=== PATIENT | female | born 1955 | race Caucasian/White ===

== ENCOUNTER → 2021-10-14 06:35 | Outpatient (CLI) | payer MEDICARE, SELFPAY ==
--- NOTE | 2021-10-14 06:47 | ECHOD_ITS ---
Reason For Study: Afib/Flutter Procedure This was a 2D Doppler, Color Flow transthoracic echocardiogram. The study was technically difficult. Exam performed in department. Left Ventricle Normal LV size. Mild concentric left ventricular hypertrophy. Left ventricular systolic function is normal. The estimated ejection fraction is 65 %. Diastolic function is indeterminate. No regional wall motion abnormalities noted. Right Ventricle Normal RV size. Normal systolic function. Atria Normal left atrium. Normal right atrium. Lipomatous hypertrophy of the atrial septum. No doppler evidence for ASD. Mitral Valve There is mild mitral annular calcification. Normal mitral valve. Trivial mitral valve insufficiency. Tricuspid Valve Normal tricuspid valve. Trivial tricuspid valve insufficiency. Unable to estimate RV systolic pressure/pulmonary artery pressure due to technically difficult study. Aortic Valve Trisinus/trileaflet aortic valve. Mild diffuse aortic valve thickening. Mild focal aortic valve calcification. Mild aortic stenosis. Mild (1+) aortic valve insufficiency. Pulmonic Valve The pulmonic valve is not well visualized. Great Vessels The aortic root is not well visualized. Pericardium/Pleural No pericardial effusion. MMode/2D Measurements & Calculations LVIDd: 4.6 cm IVSd: 1.4 cm LVOT diam: 2.0 cm LVIDs: 3.0 cm LVPWd: 1.3 cm LVOT area: 3.2 cm2 RVDd: 2.9 cm FS: 36.1 % LA dimension: 3.1 cm LAV(MOD-bp): 37.6 ml LA A4 area: 13.2 cm2 LAV(MOD-bp) Indexed: 22.5 ml/m2 LAV(MOD-sp2): 42.3 ml LAV(MOD-sp4): 31.9 ml RA A4 area: 11.3 cm2 Time Measurements MV dec time: 0.38 sec Doppler Measurements & Calculations MV E max gera: 58.9 cm/sec Lat Peak E' Gera: 3.5 cm/sec Med Peak E' Gera: 4.1 cm/sec MV A max gera: 99.3 cm/sec E/E' lat: 16.6 E/E' med: 14.3 MV E/A: 0.59 MV V2 max: 100.8 cm/sec MV P1/2t max gera: 63.6 cm/sec Ao V2 max: 250.3 cm/sec MV max P.1 mmHg MV P1/2t: 143.2 msec Ao max P.1 mmHg MV V2 mean: 49.0 cm/sec MV dec slope: 130.0 cm/sec2 Ao V2 mean: 170.3 cm/sec MV mean P.2 mmHg Ao mean P.0 mmHg MV V2 VTI: 29.6 cm MVA(P1/2t): 1.5 cm2 Ao V2 VTI: 53.9 cm MVA(VTI): 2.6 cm2 POLO(I,D): 1.4 cm2 POLO(V,D): 1.4 cm2 AI max gera: 441.9 cm/sec LV V1 max: 114.0 cm/sec SV(LVOT): 77.3 ml AI max P.2 mmHg LV V1 max P.2 mmHg LV V1 mean P.4 mmHg AI dec slope: 189.9 cm/sec2 LV V1 mean: 70.6 cm/sec AI P1/2t: 681.4 msec LV V1 VTI: 24.4 cm PA V2 max: 69.9 cm/sec ECHO/Echo Complete Interpretation Summary The study was technically difficult. Left ventricular systolic function is normal. The estimated ejection fraction is 65 %. Mild concentric left ventricular hypertrophy. Lipomatous hypertrophy of the atrial septum. There is mild mitral annular calcification. Trivial mitral valve insufficiency. Trivial tricuspid valve insufficiency. Mild aortic stenosis. Mild (1+) aortic valve insufficiency. Unable to estimate RV systolic pressure/pulmonary artery pressure due to techni elin difficult study. Diastolic function is indeterminate. Ordering Physician: Michael Tinoco Referring Physician: Mandie Aldana Performed By: Pramod Meza RCS
--- NOTE | 2021-10-14 09:36 | STRESSREP ---
Stress Test Report Date: 10-14-2021 Procedure: Exercise tolerance test/imaging study Indications: Atrial fibrillation; PACs; PVCs; aortic valve stenosis Consent: Per the patient Procedure: The patient exercised on a See protocol for 4 minutes and 30 seconds completing Stage I and 1 minute and 30 seconds of Stage II achieving a peak heart rate of 144 bpm (94% predicted maximal heart rate) with a peak blood pressure 220/104 mmHg and a peak MET capacity of 7 METs. The baseline ECG demonstrated sinus rhythm. The peak exercise ECG demonstrated somatic/motion artifact with no obvious ECG changes. There was an occasional PVC in recovery. Blood pressure response: Resting hypertension-exaggerated response. The functional capacity was considered decreased. There was no complaint of chest discomfort during exercise or recovery. The examination was discontinued secondary to dyspnea and leg discomfort. Impression: 1. Technically adequate (percent predicted maximal heart rate greater than 85%) exercise tolerance test 2. Peak exercise ECG with somatic/motion artifact with no obvious ECG changes 3. There was an occasional PVC during recovery 4. Nuclear images pending Myocardial perfusion imaging study: Technique: The patient was injected with 11.5 mCi of technetium 99m Cardiolite and subsequently rest SPECT Cardiolite nuclear imaging was obtained in the horizontal long, vertical long, and short axis views. The patient exercised on a See protocol for 4 minutes and 30 seconds completing Stage I and 1 minute and 30 seconds of Stage II achieving a peak heart rate of 144 bpm (94% predicted maximal heart rate) with a peak blood pressure 220/104 mmHg and a peak MET capacity of 7 METs. The patient was injected with 33.6 mCi of technetium 99m Cardiolite and subsequently stress SPECT Cardiolite nuclear imaging was obtained in the horizontal long, vertical long, and short axis views. A gated Cardiolite study at peak stress was obtained. Interpretation: Rest and stress SPECT Cardiolite nuclear imaging status post realignment, normalization, and attenuation correction, demonstrates the appearance of relative uniform tracer uptake and myocardial perfusion appearing within normal limits. There is end systolic thickening and brightening. The gated Cardiolite study demonstrates myocardial thickening and inward wall motion. The reported LVEF is 61%. Impression: 1. Rest and stress SPECT Cardiolite nuclear imaging demonstrate relative uniform tracer uptake and myocardial perfusion appearing within normal limits. 2. The gated Cardiolite study reports an LVEF of 61%. This note was generated with [employer] software. It may contain incorrect words, spelling, and punctuation that were not noted in checking the note before signing.
== END ==
PROVIDERS: PCP Physician Assistant; Referring Provider Internal Medicine Cardiovascular Disease; Visit Provider Internal Medicine Cardiovascular Disease
DX: R01.1 Cardiac murmur, unspecified (principal); E78.2 Mixed hyperlipidemia; I10 Essential (primary) hypertension; I35.2 Nonrheumatic aortic (valve) stenosis with insufficiency; I48.91 Unspecified atrial fibrillation; I49.1 Atrial premature depolarization; I49.3 Ventricular premature depolarization; R06.09 Other forms of dyspnea
CPT/HCPCS: 78452; 93017; 93306; A9500; A4216

== ENCOUNTER 2023-12-28 14:06 | Inpatient (IN) | payer MEDICARE, SELFPAY ==
[2023-12-28 14:06] VITALS: BP 191/97; PULSE 66; RESP 14; TEMP 36.6; O2SAT 96; BMI 29.0
--- NOTE | 2023-12-28 14:33 | EDS_ITS ---
HPI History of Present Illness Chief Complaint: Chest Pain Informant: patient Onset/Context/Timing Onset: Yesterday Timing: Continuous Quality: Positive for Pressure Location: Substernal Current Severity: Gone Maximum Severity: Mild Worsened By: Nothing Relieved By: Nothing Associated Symptoms: Negative for Nausea, Vomiting, Diaphoresis, Dyspnea, Cough, Fever, Lightheadedness, Acid Reflux or Palpitations Narrative Narrative: 68-year-old female history of A-fib on aspirin only hypertension and COPD. Was admitted to [facility] last night for non-ST elevation PR where her troponins went from 811 to around 1600. They were going to transfer her from their facility to [facility] or [facility]. The patient will be transferred here and came here by [facility] ambulance [facility]. Currently she is not having pain. She also stated yesterday her blood pressure was around 260/150. She is on metoprolol and losartan for her blood pressure has been taking them., Prior Similar Symptoms: Yes Recent Illness/Hospitalization: Yes CVD Risk Factors: Positive for Hypertension and Smoking; Negative for Diabetes PE Risk Factors: Negative for Recent Travel/Surgery, Recent Immobilization, Prior DVT or PE, Cancer or OCP + Smoking + >/=35 TAD Risk Factors: Negative for Marfan's Syndrome [facility] Medical History Atrial fibrillation Cardiac murmur CKD (chronic kidney disease) Essential hypertension Hypothyroidism Mixed hyperlipidemia Nonrheumatic aortic (valve) stenosis with insufficiency PAC (premature atrial contraction) Paroxysmal atrial fibrillation Premature ventricular contraction Thyroid nodule Uterine cancer Home Medications acetazolamide 250 mg tablet 250 mg PO DAILY 09/29/21 [History Last Taken Unknown] levothyroxine 100 mcg tablet 100 mcg PO DAILY 09/29/21 [History Last Taken Unknown] simvastatin 10 mg tablet 10 mg PO QHS 09/29/21 [History Last Taken Unknown] metoprolol succinate 25 mg tablet,extended release 24 hr 25 mg PO DAILY 10/01/21 [History Last Taken Unknown] aspirin 81 mg tablet,delayed release (Adult Aspirin Regimen) 81 mg PO DAILY 11/05/21 [History Last Taken Unknown] losartan 25 mg tablet 25 mg PO .COMPLEX #270 tabs 01/13/22 [Rx Last Taken Unknown] Allergy/AdvReac Type Severity Reaction Status Date / Time bupropion [From Wellbutrin] AdvReac Severe Shakiness Verified 12/28/23 14:10 Family History Mother Myocardial infarction CHF (congestive heart failure) Kidney disease Hypertension Father Atrial fibrillation Aunt CHF (congestive heart failure) CAD (coronary artery disease) History of coronary artery bypass surgery Uncle CAD (coronary artery disease) History of coronary artery bypass surgery Sister CAD (coronary artery disease) Myocardial infarction Brother CAD (coronary artery disease) Myocardial infarction Brother CAD (coronary artery disease) Myocardial infarction Surgical History History of appendectomy History of bilateral cataract extraction History of partial hysterectomy Social History Smoking Status: Current every day smoker tobacco type: cigarettes alcohol intake: never substance use type: does not use caffeine: No ROS ROS ED ROS Narrative Chest pressure. Review of Systems ROS Unobtainable: Denies due to encephalopathy Constitutional Constitutional ED: Denies chills or fever(s) Eyes Eyes: Reports none ENT ENT ED: Denies ear pain Cardiovascular Cardiovascular: Reports as per HPI and chest pain; Denies palpitations or racing heartbeat Respiratory/Chest Respiratory/Chest: Denies cough or dyspnea Gastrointestinal Gastrointestinal: Denies abdominal pain, constipation, diarrhea, melena, nausea or vomiting Genitourinary Genitourinary ED: Denies dysuria or hematuria Musculoskeletal Musculoskeletal: Denies arthralgias, back pain, myalgias or neck pain Integumentary Denies abscess, Abrasions, rash or other Neurologic Neurologic: Denies headache(s) Psychiatric Psychiatric: Denies anxiety or depression Endocrine Endocrinology: Denies cold intolerance Hematologic/Lymphatic Hematologic/Lymphatic: Denies easy bleeding, easy bruising or lymphadenopathy Allergic/Immunologic Allergic/Immunologic ED: Denies mouth swelling, tongue swelling or urticaria EXAM Physical Exam Narrative Exam Narrative: 68-year-old female no acute distress initial blood pressure 191/97. Pulse ox 96% on room air no signs hypoxia. H EENT exam unremarkable. Neck nontender. Lungs coarse breath sounds bilaterally consistent with COPD. Heart regular rhythm rate about 65 no murmur. Chest wall and ribs nontender. Abdomen soft nontender. Moving all 4 extremities. 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 Dorsi plantarflexion intact. Calves have no edema or cords. Nontender. Neurologically she is awake alert answering questions following commands. Const Vital Signs: 12/28/23 14:06 12/28/23 14:08 Temperature 98 F Temperature Source Temporal Pulse Rate 66 Respiratory Rate 14 Respiratory Effort Normal Blood Pressure 191/97 H Blood Pressure Mean 128 Pulse Ox 96 Oxygen Delivery Method Room Air Positive well nourished and well developed; Negative for cachectic, contractures or unkempt General Appearance ED: well developed and NAD; Negative for unkempt, cachectic, contractures or pallor Nutritional Appearance: Negative for cachectic HEENT Reports moist mucous membranes; Denies dry mucous membranes normocephalic and atraumatic; Negative for trauma or tenderness Mouth ED: No dry mucous membranes Mouth: No dry mucous membranes Eyes PERRL and EOMs intact bilaterally General Eye ED: Negative for pale conjunctiva or scleral icterus Neck no lymphadenopathy, supple and no JVD General: Negative for tenderness Chest Wall inspection of chest normal and palpation of chest normal Chest: Negative for tenderness Resp normal respiratory effort and No clear to auscultation bilaterally Resp Narrative: Coarse breath sounds bilaterally. Effort and Inspection: Negative for respiratory distress Auscultation: Negative for rales, rhonchi or wheezes Cardio regular rate, regular rhythm, S1 normal heart sound, S2 normal heart sound and no murmurs Peripheral Pulses: pulses 2+ throughout GI normal to inspection, nondistended, normoactive bowel sounds, soft to palpation, non-tender, non-distended and no masses Back/Spine no CVA tenderness and no thoracic nor lumbar tenderness General Back: Negative for CVA tenderness Cervical Spine: Negative for cervical spine tenderness Extremity normal to inspection General Extremety ED: Negative for edema, pulses abnormal or tenderness General Extremity: Negative for edema or pulses abnormal Neuro oriented x3 Sensorium / Orientation: awake, alert, oriented to person and oriented to place; Negative for oriented to time, confused, lethargic or stuporous Motor Exam: strength 5/5 throughout; Negative for general weakness or strength a bnormal Psych mental status grossly normal Appearance: Negative for unkempt Attitude: No agitated Mood & Affect: Negative for depressed, anxious or tearful Skin no rashes or lesions noted and no wounds General Skin Exam: Negative for jaundice or pallor Rashes: No rashes noted Trauma: Negative for abrasion or laceration Heart Score History: Highly Suspicious ECG: Normal Age: >/= 65 years Risk Factors: 1 or 2 Risk Factors Troponin: >/=3 x Normal Limit Score: 7 MDM MDM MDM Narrative Medical decision making narrative: 68-year-old with non-ST elevation PR transferred from another facility to work on admission. Currently she is stable and resting comfortably. I reviewed the patient's labs from the other facility. She had elevating troponins from 811-16 100. She will be admitted here to the hospitalist. I will also already spoken to Dr. Matthew duarte of cardiology is in the room evaluating the patient at this time. She will be set up for cardiac catheterization either today or tomorrow. She is to be given heparin bolus and drip and Lopressor for her blood pressure. History & Record Review Discussion w/independent historian: Patient and Family Additional record(s) reviewed:: Prior inpatient record, Prior outpatient record, Prior ED visit and Prior labs Lab Data Attestation: I reviewed the patient's lab results. Lab results narrative: CBC from the other hospital showed a white count of 7 H&H 13 and 39. Platelets 175. Electrolytes unremarkable BUN 22 creatinine 1.51. Glucose 87. Serial troponin 0 started 811 then 1095 then 1004 and 33 in the last that was 1651. Rhythm Strip Rhythm Strip: Sinus Rhythm Rate: 61 Ectopy: None EKG Initial EKG: Attestation: I personally reviewed and interpreted this EKG as follows: Interpretation: Sinus Rhythm and No Acute Injury Pattern Comments: Normal sinus rhythm rate of 61 no acute signs of PR or ischemia. She does have nonspecific lateral T wave changes. Discharge Plan Triage Chief Complaint: Chest Pain ED Provider: Cristobal Lomas Dx/Rx/DC Orders Clinical Impression: History of COPD, Non-ST elevated myocardial infarction (non-STEMI), History of hypertension, History of atrial fibrillation, Chest pain Prescriptions: No Action metoprolol succinate 25 mg tablet extended release 24 hr 25 mg PO DAILY simvastatin 10 mg tablet 10 mg PO QHS acetazolamide 250 mg tablet 250 mg PO DAILY levothyroxine 100 mcg tablet 100 mcg PO DAILY losartan 25 mg tablet 25 mg PO .COMPLEX Qty: 270 3RF Rx Instructions: 25 mg PO; 25mg in AM, 50mg in PM aspirin [Adult Aspirin Regimen] 81 mg tablet,delayed release (DR/EC) 81 mg PO DAILY Primary Care Provider: Mandie Aldana Referrals: Mandie Aldana, SUNITA [Primary Care Provider] - Disposition Disposition: Acute Care Hospital [facility]
--- NOTE | 2023-12-28 15:00 | EKG12_ITS ---
Test Reason : CP Blood Pressure : / mmHG Vent. Rate : 061 BPM Atrial Rate : 061 BPM P-R Int : 148 ms QRS Dur : 084 ms QT Int : 418 ms P-R-T Axes : 072 072 085 degrees QTc Int : 420 ms Normal sinus rhythm Nonspecific T wave abnormality Abnormal ECG Confirmed by Adonay Patel ([id number]), make up editor LEVON KELLY ([id number]) on 12/29/2023 2:46:13 PM Referred By: Confirmed By:Adonay Patel
--- NOTE | 2023-12-28 15:02 | NURSING ---
ANNIE REA NSTEMI, CHEST PAIN, COPD
--- NOTE | 2023-12-28 15:04 | HP.PCM.HOS_ITS ---
[facility] - General General Date of Admission: 12/28/23 Date of Service: 12/28/23 Chief Complaint: Chest pain HPI Narrative ADELIA ORDOÑEZ, is a 68 F who presented to the emergency department at [facility] on 12/28/2023. She developed chest pain yesterday and they went to [facility] it is closer to her house. She was admitted there and found to have an elevated troponin at 881 with a repeat draw at 1645. The plan was to transfer her to [facility] or [facility] however family preferred to be transferred here as she had previously been seen by Dr. Tinoco. Evidently they refused to transfer her here so they drove her off the property and then put her in the physician's ambulance for which her daughter works for her and transferred her to the emergency department here. Upon presentation she was not having any symptomatic chest pain. She denied any associated nausea, vomiting, shortness of breath, or diaphoresis with her previous episode. She does have a history of hypertension, hyperlipidemia, and tobacco abuse and smokes about a pack of cigarettes a day. She has no previous coronary disease but does have a history of paroxysmal atrial fibrillation for which she is not anticoagulated. Both she and family reports that she has had issues with elevated blood pressure and states that her blood pressure is never under 130/80. Vital signs on presentation showed temperature of 98, heart rate 66, blood pressure was 191/97, respiratory was 14 oxygen saturations were 96% on room air. All of her lab work was pending at the time of admission. Case was discussed with Dr. Patel from cardiology and the plan will be for echocardiogram and cardiac catheterization tomorrow to assess her coronary artery vasculature. [facility] Medical History Atrial fibrillation Cardiac murmur CKD (chronic kidney disease) Essential hypertension Hypothyroidism Mixed hyperlipidemia Nonrheumatic aortic (valve) stenosis with insufficiency PAC (premature atrial contraction) Paroxysmal atrial fibrillation Premature ventricular contraction Thyroid nodule Uterine cancer Home Medications acetazolamide 250 mg tablet 250 mg PO DAILY 09/29/21 [History Last Taken Unknown] levothyroxine 100 mcg tablet 100 mcg PO DAILY 09/29/21 [History Last Taken Unkn own] simvastatin 10 mg tablet 10 mg PO QHS 09/29/21 [History Last Taken Unknown] metoprolol succinate 25 mg tablet,extended release 24 hr 25 mg PO DAILY 10/01/21 [History Last Taken Unknown] aspirin 81 mg tablet,delayed release (Adult Aspirin Regimen) 81 mg PO DAILY 11/05/21 [History Last Taken Unknown] losartan 25 mg tablet 25 mg PO .COMPLEX #270 tabs 01/13/22 [Rx Last Taken Unknown] Allergy/AdvReac Type Severity Reaction Status Date / Time bupropion [From Wellbutrin] AdvReac Severe Shakiness Verified 12/28/23 14:10 Family History Mother Myocardial infarction CHF (congestive heart failure) Kidney disease Hypertension Father Atrial fibrillation Aunt CHF (congestive heart failure) CAD (coronary artery disease) History of coronary artery bypass surgery Uncle CAD (coronary artery disease) History of coronary artery bypass surgery Sister CAD (coronary artery disease) Myocardial infarction Brother CAD (coronary artery disease) Myocardial infarction Brother CAD (coronary artery disease) Myocardial infarction Surgical History History of appendectomy History of bilateral cataract extraction History of partial hysterectomy Social History Smoking Status: Current every day smoker tobacco type: cigarettes alcohol intake: never substance use type: does not use caffeine: No ROS Constitutional Constitutional: Denies anorexia, change in weight, chills, fatigue, fever(s), malaise, night sweats, weakness or other Eyes Eyes: Reports change in vision and loss of vision; Denies blurry vision, change in eye color, discharge from eye(s), double vision, erythema, eye pain or other ENT HEENT: Denies abnormal hearing, dysphagia, ear pain, epistaxis, headache(s), hearing loss, nasal congestion, nasal discharge, post nasal drip, sinus pressure, sore throat or other Cardiovascular Cardiovascular: Reports chest pain; Denies claudication, dyspnea on exertion, edema, lightheadedness, orthopnea, palpitations, paroxysmal nocturnal dyspnea, rapid heart rate, syncope or other Respiratory/Chest Respiratory/Chest: Denies cough, dyspnea, excessive phlegm production, hemoptysis, productive cough, shortness of breath at rest, shortness of breath with exertion, wheezing or other Gastrointestinal Gastrointestinal: Denies abdominal pain, coffee ground emesis, constipation, diarrhea, dyspepsia, hematemesis, hematochezia, loose stools, melena, nausea, vomiting or other Genitourinary Genitourinary: Denies burning urination, difficulty urinating, dysuria, hematuria, nocturia, urinary frequency, urinary hesitancy, urinary incontinence, urinary urgency or other Musculoskeletal Musculoskeletal: Denies arthralgias, back pain, joint pain, joint stiffness, joint swelling, myalgias, neck pain or other Neurologic Neurologic: Denies abnormal gait, abnormal speech, confusion, disequilibrium, dizziness, focal weakness, headache(s), numbness, paresthesias, seizure-like activity, seizures, syncope, tingling, tremor(s) or other Psychiatric Psychiatric: Denies anxiety, depression, homicidal ideation, suicidal ideation or other Endocrine Endocrinology: Denies change in body appearance, cold intolerance, excessive sweating, heat intolerance, polydipsia, polyuria or other Hematologic/Lymphatic Hematologic/Lymphatic: Denies anemia, easy bleeding, easy bruising, lymphadenopathy or other Allergic/Immunologic Allergic/Immunologic: Denies rhinitis, hives, eczemia, asthma or other Vital Signs Vital Signs Vital Signs: 12/28/23 14:06 12/28/23 14:08 Temperature 98 F Temperature Source Temporal Pulse Rate 66 Respiratory Rate 14 Respiratory Effort Normal Blood Pressure 191/97 H Blood Pressure Mean 128 Pulse Ox 96 Oxygen Delivery Method Room Air Weight Weight: 72.1 kg Body Mass Index (BMI) 29.0 Physical Exam Const alert, oriented x3, no apparent distress and well nourished; Negative for average body habitus or healthy appearing Constitutional Narrative: Overweight, older, white female, sitting up in bed, family at bedside, patient currently appears comfortable and nontoxic General Appearance: cooperative HEENT normocephalic, head/scalp atraumatic, hearing grossly normal bilaterally and moist oral mucous membranes HEENT Narrative: Dentition is poor, Mallampati is 2, no thrush Eyes PERRL, EOMs intact bilaterally and conjunctivae normal Eyes Narrative: No scleral icterus Neck no lymphadenopathy, supple, no JVD and no carotid bruits Resp normal respiratory effort, no retractions, no use of accessory muscles and No clear to auscultation bilaterally Resp Narrative: Scattered end expiratory wheezes Auscultation: wheezes; Negative for rales or rhonchi Cardio regular rate, regular rhythm, S1 normal heart sound, S2 normal heart sound, no rub, no gallops and no clicks; Negative for no murmurs Cardio Narrative: 2 out of 6 systolic murmur GI normal to inspection, nondistended, normoactive bowel sounds, soft to palpation and non-tender Extremity no clubbing, cyanosis or edema Extremity Narrative: Pedal pulses are 1+ bilaterally Skin Skin Narrative: Nonhealing wound of her left medial malleolus Neuro oriented x3, CN's II-XII intact bilaterally, moves all extremities and no focal motor deficits Speech: speech normal Psych affect normal Psych Narrative: Eye contact is good, patient interacts appropriately Results Lab / Micro Data Attestation: I reviewed the patient's lab results. Rhythm Strip Rhythm Strip: Sinus Rhythm Rate: 61 Ectopy: None Assessment & Plan Assessment/Plan (1) NSTEMI, initial episode of care: (2) Chest pain: PLAN: Plan NSTEMI -Currently chest pain-free -Start heparin drip -Start metoprolol 50 mg daily -Start losartan 50 mg daily -Start Aldactone 50 mg daily -Start atorvastatin 80 mg daily -Continue home aspirin 81 mg daily -Check lipid panel -Check hemoglobin A1c -Check echocardiogram -Cycle cardiac enzymes -As needed nitro for recurrent chest pain -N.p.o. after midnight for cardiac catheterization -Cardiac diet until midnight -Cardiology is consulted and discussed the case with Dr. Patel Cardiac murmur -Check echocardiogram -Last echo done 10/14/2021 showed an EF of 65% with mild LVH, lipomatous hypertrophy of the atrial septum, trivial mitral valve, tricuspid valve insufficiency with mild aortic stenosis and indeterminate diastolic dysfunction Aortic valve stenosis -Mild on last echocardiogram in 2020 -Repeat echo is pending Uncontrolled hypertension -Family reports that her blood pressure is never well-controlled and has never been under 130/80 -Medications as noted above with titration as needed to attain goal blood pressure -Home dose of losartan is 50 twice daily so would initially increase the dose of her losartan depending on what her blood pressure does with the changes in her medications -Vital signs as ordered -Hydralazine 10 mg every 6 hours for systolic greater than 160 has been ordered as well Macular degeneration/retinitis pigmentosa -Continue acetazolamide Hypothyroidism -Continue home levothyroxine -Check TSH Hyperlipidemia -Hold home simvastatin -High-dose atorvastatin -Check lipid panel Tobacco abuse with suspected COPD -Patient has never had previous PFTs upon record however she is wheezing on exam -As needed nebulizers -Recommend cessation -Will start nicotine patch after cardiac catheterization -Could consider low-dose Ativan orally for agitation if she develops any withdrawal symptoms History of atrial fibrillation -Patient is not anticoagulated -Continue metoprolol -Currently in sinus rhythm DVT prophylaxis -Patient is on a heparin drip will continue for now CODE STATUS -Full code as discussed on admission Charges/Coding Visit Charges Inpatient E&M: 38323 Init Hosp L2
[2023-12-28] MEDS: Metoprolol Tartrate 5 MG/5 ML Vial IV (15:05)
--- NOTE | 2023-12-28 15:06 | NURSING ---
NO OLD EKG
--- NOTE | 2023-12-28 15:30 | RAD_ITS ---
EXAM: XR CHEST, 1 VIEW CLINICAL INDICATION: chest pain TECHNIQUE: Frontal view of the chest. COMPARISON: No relevant prior studies available. FINDINGS: LUNGS AND PLEURAL SPACES: Calcified granuloma in the left upper lobe. No consolidation or edema. No pneumothorax. No effusion. HEART: Unremarkable. Cardiac silhouette not enlarged. MEDIASTINUM: Central airways and mediastinal contour are unremarkable. BONES/JOINTS: Unremarkable. No acute fracture. SOFT TISSUES: Unremarkable. RAD/Chest 1 View (Portable) IMPRESSION: No radiographic evidence of acute cardiopulmonary disease. Electronically Signed: Arnulfo Arias MD at 15:55 EST ,
[2023-12-28] MEDS: Heparin Injection (Vial) 5,000 UNIT/ML VIAL 5000 UNIT IV (15:34)
--- NOTE | 2023-12-28 15:34 | CON.PCM.CA_ITS ---
Assessment & Plan Assessment/Plan (1) NSTEMI, initial episode of care: PLAN: Patient presents with an EKG suggestive of the lateral ischemic changes. Cardiac enzymes are negative at 800 up to 1600. Blood pressure was severely elevated at [facility]. This suggest this may be a hypertensive urgency. But the patient has multiple risk factors strong family history she continues to smoke she is severely hypertensive and hyperlipidemic. It is highly likely she has significant coronary artery disease. The patient is recommended for left heart catheterization in the next 24 hours. The procedure risk/benefit and alternatives were explained to the patient and her family they voiced understanding and agreed to proceed. (2) History of atrial fibrillation: PLAN: Patient gives a history of paroxysmal atrial fibrillation but has been rare and episodes and is only been treated with aspirin long-term. She is in sinus rhythm during this episode. (3) History of hypertension: PLAN: Patient has a history of hypertension treated metoprolol 25 mg daily losartan 50 mg twice daily. She was severely hypertensive at [facility] this will be adjusted to maintain her blood pressure in acceptable ranges. (4) Mixed hyperlipidemia: PLAN: The patient will be switched to intensive statin therapy was attempted atorvastatin 80 mg daily. (5) Cardiac murmur: PLAN: The patient has a murmur that sounds consistent with tricuspid regurgit ation she does have significant pulmonary insufficiency by physical exam is highly likely she has some right ventricular systolic pressure elevations she also has the quality of the murmur radiating up to the neck consistent with aortic outflow. A 2D echocardiogram has been ordered. (6) Tobacco abuse: PLAN: The patient was counseled in front of her family around the mandatory nature that she stop smoking. PLAN: Plan 1. Will intensify antihypertensive therapy. Will increase the metoprolol continue her losartan at 50 mg twice daily and add spironolactone 25 mg daily. She will likely need additional medical therapy. 2. [place] heparin IV full dose. 3. Continue with aspirin and will schedule for left heart catheterization tomorrow morning. HPI Consult Data Date of Consult: 12/28/23 HPI Narrative Reason for Consultation: The patient self transferred from [facility] HPI Narrative: ADELIA ORDOÑEZ, is a 68 F who presents patient reports that yesterday she developed discomfort in her chest was associated with shortness of breath and blood pressure was significantly elevated. She was taken to the emergency department at [facility] where blood pressure was documented 260/150. Cardiac isoenzymes showed a troponin of 811 is simply went up to 1600. Her symptoms spontaneously resolved. The patient's family wanted the patient transferred to [facility] but for some reason there was some reluctance to move her here. They took her out of the emergency department and put her in a private ambulance and brought her to [facility]. The patient presented to the emergency department she was pain-free at that time. EKG shows normal sinus rhythm with lateral T wave changes.The patient has extensive family history of coronary artery disease. She has been a longtime smoker and continues to smoke. The patient denies any visual changes at this time she does have a history of macular degeneration. She denies any TIA type symptoms she does carry history of renal insufficiency and severe hypertension. She also is hyperlipidemic on simvastatin she has hypothyroidism on levothyroxine. The patient gives a history of chronic renal insufficiency BUN and creatinine were 22 and 1.51 at primary range earlier today. The patient is resting comfortably in the emergency department on the [facility] with multiple family members in attendance including 2 daughters and a sister. [facility] Medical History Atrial fibrillation Cardiac murmur CKD (chronic kidney disease) Essential hypertension Hypothyroidism Mixed hyperlipidemia Nonrheumatic aortic (valve) stenosis with insufficiency PAC (premature atrial contraction) Paroxysmal atrial fibrillation Premature ventricular contraction Thyroid nodule Uterine cancer Home Medications acetazolamide 250 mg tablet 250 mg PO DAILY for eyes 09/29/21 [History Last Taken Unknown] levothyroxine 100 mcg tablet 100 mcg PO DAILY thyroid 09/29/21 [History Last Taken Unknown] simvastatin 10 mg tablet 40 mg PO QHS cholesterol 09/29/21 [History Last Taken Unknown] metoprolol succinate 25 mg tablet,extended release 24 hr 25 mg PO DAILY bp 10/01/21 [History Last Taken Unknown] aspirin 81 mg tablet,delayed release (Adult Aspirin Regimen) 81 mg PO DAILY heart 11/05/21 [History Last Taken Unknown] losartan 25 mg tablet 50 mg PO BID bp 12/28/23 [History Last Taken Unknown] Allergy/AdvReac Type Severity Reaction Status Date / Time bupropion [From Wellbutrin] AdvReac Severe Shakiness Verified 12/28/23 14:10 Family History Mother Myocardial infarction CHF (congestive heart failure) Kidney disease Hypertension Father Atrial fibrillation Aunt CHF (congestive heart failure) CAD (coronary artery disease) History of coronary artery bypass surgery Uncle CAD (coronary artery disease) History of coronary artery bypass surgery Sister CAD (coronary artery disease) Myocardial infarction Brother CAD (coronary artery disease) Myocardial infarction Brother CAD (coronary artery disease) Myocardial infarction Surgical History History of appendectomy History of bilateral cataract extraction History of partial hysterectomy Social History Smoking Status: Current every day smoker tobacco type: cigarettes alcohol intake: never substance use type: does not use caffeine: No ROS Constitutional Constitutional: Reports as per HPI Eyes Eyes: Reports as per HPI ENT HEENT: Reports systems reviewed and no addt'l complaints, except as documented Cardiovascular Cardiovascular: Reports as per HPI Respiratory/Chest Respiratory/Chest: Reports as per HPI Gastrointestinal Gastrointestinal: Reports systems reviewed and no addt'l complaints, except as documented Genitourinary Genitourinary: Reports systems reviewed and no addt'l complaints, except as documented Musculoskeletal Musculoskeletal: Reports systems reviewed and no addt'l complaints, except as documented Integumentary Integumentary: Reports non-healing lesions Neurologic Neurologic: Reports systems reviewed and no addt'l complaints, except as documented Psychiatric Psychiatric: Reports systems reviewed and no addt'l complaints, except as documented Endocrine Endocrinology: Reports as per HPI Hematologic/Lymphatic Hematologic/Lymphatic: Reports systems reviewed and no addt'l complaints, except as documented Allergic/Immunologic Allergic/Immunologic: Reports systems reviewed and no addt'l complaints, except as documented Physical Exam Const oriented x3 Constitutional Narrative: Smells of tobacco. HEENT normocephalic Eyes EOMs intact bilaterally Neck no JVD and no carotid bruits Chest inspection of chest normal Resp normal respiratory effort Auscultation: rhonchi throughout and wheezes expiratory wheezes and posterior Cardio regular rate, regular rhythm, S1 normal heart sound, S2 normal heart sound, no rub and no gallops Heart Sounds: murmur systolic III/ loud right sternal border to the neck GI normal to inspection, nondistended, normoactive bowel sounds Extremity no pedal edema Skin Skin Narrative: Patient has a nonhealing superficial ulcer on the left medial foot. Neuro Neuro Narrative: Alert and oriented x 3. Psych mental status grossly normal Risk Stratification Risk Stratification Applicable: Yes Age >/= 65: Yes >/= 3 CAD Risk Factors (HTN, HLD, DM, family hx of CAD, or current smoker): Yes Aspirin Use in the Past 7 Days: Yes Severe Angina (>/= episodes in 24 hours): Yes EKG ST Changes >/= 0.5mm: No Positive Cardiac Marker: Yes JOCE Risk Stratification Score: 5 JOCE % Risk: 25% Risk Charges/Coding Visit Charges Inpatient E&M: 18937 Init Hosp L3 Objective Data Vital Signs: Vital Signs Temp Pulse Resp BP Pulse Ox O2 Del Method 98 F 66 14 191/97 H 96 Room Air 12/28/23 14:06 12/28/23 14:06 12/28/23 14:06 12/28/23 14:06 12/28/23 14:06 12/28/23 14:06 Oxygen Delivery Method Room Air Weight: 158 lb 15.253 oz Body Mass Index (BMI) 29.0 Lab / Micro Data 12/28/23 15:22 12/28/23 15:22 Rhythm Strip Rhythm Strip: Sinus Rhythm Rate: 61 Ectopy: None Cardiology Labs/Tests Rhythm: EKG: ECHO: Stress Test: Cardiac Cath: PCI: CT Surgery: Holter monitor: EPS: PPM: CXR: Chest CT Scan: EKG Initial EKG: Attestation: I personally reviewed and interpreted this EKG as follows: Interpretation: Normal sinus rhythm with nonspecific T waves laterally that are suggestive of ischemic changes.
[2023-12-28] MEDS: HEPARIN/D5w 25,000 UNITS 25,000 UNITS/250 ML IV.SOLN. 11 UNITS CONT INF (15:35)
[2023-12-28 15:38] VITALS: BP 195/98; PULSE 60; RESP 16; O2SAT 95
[2023-12-28 15:43] VITALS: BP 195/98; PULSE 59; RESP 20; TEMP 36.9; O2SAT 95
[2023-12-28 15:43] LABS: Absolute Lymphocyte Count 1.58 X10^3/uL (0.83-4.51); Absolute Neutrophil Count 4.1 X10^3/uL (2.0-7.7); Basophil# 0.03 X10^3/uL; Basophil% 0.5 % (0-1); Eosinophil# 0.18 X10^3/uL; Eosinophils% 2.8 % (0-5); Hematocrit 37.2 % (37-47); Hemoglobin 11.7 g/dL (12.0-15.0); Lymphocyte # 1.58 X10^3/ul (0.83-4.51); Lymphocyte % 24.7 % (19-41); Mean Corp Hgb Conc 31.5 g/dL (32-36); Mean Corpuscular Hgb 27.1 pg (27.0-32.0); Mean Corpuscular Volume 86.1 fL (81-99); Mean Platelet Vol. 9.9 fl (6.2-12.0); Monocyte# 0.48 X10^3/uL; Monocyte% 7.5 % (0-10); NRBC Flagged by Analyzer 0 % (0-5); Neutrophil % 64.2 % (47-70); Platelet Count 148 K/mm3 (150-450); RBC Distribution Width SD 47.2 fl (35.1-43.9); Red Blood Count 4.32 M/mm3 (4.2-5.4); White Blood Count 6.4 K/mm3 (4.4-11.0)
[2023-12-28 15:57] LABS: Hemoglobin A1c 5.6 % (3.8-5.6)
--- NOTE | 2023-12-28 15:59 | ECHOD_ITS ---
Reason For Study: CHEST PAIN Procedure This was a 2D Doppler, Color Flow transthoracic echocardiogram. Exam performed portable in patient room. Left Ventricle Mild concentric left ventricular hypertrophy. The left ventricular ejection fraction is 65 %. Stage 1 diastolic dysfunction. Right Ventricle Normal right ventricle. Atria The left and right atria are normal. Mitral Valve Trivial mitral valve insufficiency. Tricuspid Valve Trivial tricuspid valve insufficiency. Normal pulmonary artery pressure. Aortic Valve Trisinus/trileaflet aortic valve. Mild diffuse aortic valve calcification. Mild aortic stenosis. Mild (1+) aortic valve insufficiency. Pulmonic Valve The pulmonic valve is not well visualized. Mild (1+) pulmonic valve insufficiency. Great Vessels Normal sized aortic root. Pericardium/Pleural No pericardial effusion. MMode/2D Measurements & Calculations LVIDd: 4.8 cm IVSd: 1.1 cm LVOT diam: 2.0 cm LVIDs: 3.2 cm LVPWd: 1.1 cm LVOT area: 3.0 cm2 RVDd: 3.0 cm FS: 32.7 % Ao root diam: 3.3 cm LAV(MOD-bp): 27.8 ml LVAd ap4: 25.6 cm2 LAV(MOD-bp) Indexed: 16.2 ml/m2 LVLd ap4: 7.6 cm LAV(MOD-sp2): 28.7 ml EDV(MOD-sp4): 71.5 ml LAV(MOD-sp4): 25.3 ml EDV(sp4-el): 73.6 ml LVAs ap4: 14.5 cm2 LVLs ap4: 6.3 cm ESV(MOD-sp4): 29.2 ml ESV(sp4-el): 28.3 ml EF(MOD-sp4): 59.2 % EF(sp4-el): 61.6 % SV(MOD-sp4): 42.4 ml SV(sp4-el): 45.3 ml LA A4 area: 11.7 cm2 LA dimension(2D): 3.4 cm RA A4 area: 9.4 cm2 TAPSE: 1.8 cm Time Measurements MV dec time: 0.36 sec Doppler Measurements & Calculations MV E max gera: 62.7 cm/sec Lat Peak E' Gera: 4.1 cm/sec Med Peak E' Gera: 4.6 cm/sec MV A max gera: 95.7 cm/sec E/E' lat: 15.4 E/E' med: 13.6 MV E/A: 0.65 Ao V2 max: 276.8 cm/sec AI max gera: 524.6 cm/sec LV V1 max: 106.2 cm/sec Ao max P.7 mmHg AI max P.1 mmHg LV V1 max P.5 mmHg Ao V2 mean: 196.7 cm/sec LV V1 mean P.1 mmHg Ao mean P.3 mmHg AI dec slope: 238.3 cm/sec2 LV V1 mean: 67.5 cm/sec Ao V2 VTI: 63.4 cm AI P1/2t: 644.7 msec LV V1 VTI: 24.0 cm AV (velocity ratio): 0.38 POLO(I,D): 1.1 cm2 POLO(V,D): 1.2 cm2 SV(LVOT): 72.2 ml PA V2 max: 74.2 cm/sec TR max gera: 261.7 cm/sec TR max P.4 mmHg ECHO/Echo Complete Interpretation Summary Mild concentric left ventricular hypertrophy. The left ventricular ejection fraction is 65 %. Stage 1 diastolic dysfunction. Mild aortic stenosis. Mild (1+) aortic valve insufficiency. Mild (1+) pulmonic valve insufficiency. Ordering Physician: Vikki Haynes Referring Physician: MARIA A ESPITIA Performed By: Ingrid Noriega RDCS
[2023-12-28 16:04] LABS: International Normalized Ratio 1.1; Prothrombin Time (Protime)PT. 14.5 SECONDS (11.7-14.9)
[2023-12-28 16:05] LABS: Partial Thromboplast Time 29.1 Seconds (24.1-36.2)
[2023-12-28 16:10] VITALS: BP 148/100; PULSE 65; RESP 18; TEMP 36.7; O2SAT 96
[2023-12-28 16:13] LABS: Anion Gap 7 (5-15); BUN 18 mg/dL (7-18); BUN/Creat Ratio 12.1 RATIO (10-20); Calcium,Total 8.7 mg/dL (8.5-10.1); Chloride 112 mmol/L (98-107); Creatinine, Serum 1.49 mg/dL (0.55-1.02); EST Glomerular Filtration Rate 37 mL/min (>60); Est Glom Filt Rate - Afr Amer 44 mL/min (>60); Estimated Creatinine Clearance 32.67 ml/min; Glucose 97 mg/dL (74-106); Potassium 3.7 mmol/L (3.5-5.1); Sodium Level 139 mmol/L (136-145); Troponin-I HS (w/2H Reflex) 1721 pg/mL (3.0-54.0)
[2023-12-28 16:14] VITALS: BMI 29.5
[2023-12-28 16:35] VITALS: BP 148/100; PULSE 65
[2023-12-28] MEDS: Metoprolol(XL)Succ 50 MG Tablet PO (16:35)
[2023-12-28] MEDS: Losartan Potassium 50 MG Tablet PO (16:35)
[2023-12-28 17:29] LABS: Reflex Troponin-HS? (from REC) Y
[2023-12-28 18:09] LABS: Troponin-I HS 1670 pg/mL (3.0-54.0)
[2023-12-28] MEDS: Atorvastatin Calcium 80 MG Tablet PO (21:00)
[2023-12-28 21:02] VITALS: BP 158/65; PULSE 55; RESP 14; TEMP 36.4; O2SAT 95
--- NOTE | 2023-12-28 22:06 | PCM.HOSP.N ---
Hospitalist Note Patient reporting anxiety for upcoming heart cath, requesting medication. Will dose with low dose ativan 0.5 mg x 1 PO.
[2023-12-28 22:12] LABS: Partial Thromboplast Time 207.9 Seconds (24.1-36.2)
[2023-12-28 22:57] LABS: Troponin-I HS 1496 pg/mL (3.0-54.0)
[2023-12-28] MEDS: LORazepam 0.5 MG Tablet PO (22:59)
[2023-12-29] VITALS (10 sets, daily range): BP systolic 133–161; BP diastolic 68–95; PULSE 56–63; RESP 14–16; TEMP 36.5–36.9; O2SAT 95–96; BMI 29.4
--- NOTE | 2023-12-29 05:55 | EKG12_ITS ---
Test Reason : PRE CI Blood Pressure : / mmHG Vent. Rate : 058 BPM Atrial Rate : 058 BPM P-R Int : 156 ms QRS Dur : 086 ms QT Int : 450 ms P-R-T Axes : 071 062 110 degrees QTc Int : 441 ms Sinus bradycardia T wave abnormality, consider anterolateral ischemia Abnormal ECG When compared with ECG of 28-DEC-2023 14:11, MANUAL COMPARISON REQUIRED, DATA IS UNCONFIRMED Confirmed by Adonay Patel ([id number]), index editor JOSE JUAN MARLEY ([id number]) on 01/03/2024 8:22:50 AM Referred By: Confirmed By:Adonay Patel
[2023-12-29 06:04] LABS: Absolute Lymphocyte Count 1.55 X10^3/uL (0.83-4.51); Absolute Neutrophil Count 3.4 X10^3/uL (2.0-7.7); Basophil# 0.03 X10^3/uL; Basophil% 0.5 % (0-1); Eosinophil# 0.22 X10^3/uL; Eosinophils% 3.9 % (0-5); Hematocrit 36.6 % (37-47); Hemoglobin 11.5 g/dL (12.0-15.0); Lymphocyte # 1.55 X10^3/ul (0.83-4.51); Lymphocyte % 27.1 % (19-41); Mean Corp Hgb Conc 31.4 g/dL (32-36); Mean Corpuscular Hgb 27.3 pg (27.0-32.0); Mean Corpuscular Volume 86.9 fL (81-99); Mean Platelet Vol. 9.3 fl (6.2-12.0); Monocyte# 0.53 X10^3/uL; Monocyte% 9.3 % (0-10); NRBC Flagged by Analyzer 0 % (0-5); Neutrophil # 3.37 X10^3/uL (2.7-7.7); Platelet Count 141 K/mm3 (150-450); RBC Distribution Width CV 15.1 % (11.6-14.6); RBC Distribution Width SD 47.4 fl (35.1-43.9); Red Blood Count 4.21 M/mm3 (4.2-5.4); White Blood Count 5.7 K/mm3 (4.4-11.0)
[2023-12-29 06:17] LABS: Partial Thromboplast Time 46.5 Seconds (24.1-36.2)
[2023-12-29] MEDS: Metoprolol(XL)Succ 50 MG Tablet PO (06:17)
[2023-12-29] MEDS: Aspirin E.C. 81 MG Tablet PO (06:17)
[2023-12-29] MEDS: Levothyroxine 100 MCG Tablet PO (06:17)
[2023-12-29] MEDS: Losartan Potassium 50 MG Tablet PO (06:17)
[2023-12-29] MEDS: Heparin Injection (Vial) 5,000 UNIT/ML VIAL IV (06:24)
[2023-12-29 06:32] LABS: ALB/GLOB Ratio 1.2 RATIO (0.9-2.4); AST(SGOT) 17 U/L (15-37); Alanine Aminotransfer ALT/SGPT 11 U/L (13-56); Albumin, Serum 3.5 g/dL (3.2-5.0); Alkaline Phosphatase 48 U/L (45-117); Anion Gap 6 (5-15); BUN 21 mg/dL (7-18); Calcium,Total 8.7 mg/dL (8.5-10.1); Chloride 114 mmol/L (98-107); Cholesterol 133 mg/dL (200); Creatinine, Serum 1.61 mg/dL (0.55-1.02); EST Glomerular Filtration Rate 34 mL/min (>60); Est Glom Filt Rate - Afr Amer 41 mL/min (>60); Estimated Creatinine Clearance 29.22 ml/min; Glucose 102 mg/dL (74-106); High Density Lipoprotein 40 mg/dL; Magnesium 2.4 mg/dL (1.6-2.6); Potassium 3.8 mmol/L (3.5-5.1); Protein, Total 6.5 g/dL (6.4-8.2); Sodium Level 143 mmol/L (136-145); Triglycerides 182 mg/dL; Very Low Density Lipoprotein 36 mg/dL (5-40)
[2023-12-29 06:36] LABS: Phosphorus 4.2 mg/dL (2.5-4.9)
--- NOTE | 2023-12-29 09:21 | WOUNDNOTE ---
Was consulted on patient for a chromic left ankle wound. pt is currently off the unit for a heart cath. will check back later. according to the assessments, wound appears to be small.
--- NOTE | 2023-12-29 09:32 | PCM.PN.HOSP ---
Reason for Visit Reason for Visit: Diagnoses Mixed hyperlipidemia (12/28/23) Non-ST elevation (NSTEMI) myocardial infarction (12/28/23) Cardiac murmur, unspecified (12/28/23) Chest pain, unspecified (12/28/23) Tobacco use (12/28/23) Personal history of other diseases of the circulatory system (12/28/23) Subjective Subjective Patient is a 68-year-old lady transferred from [facility] with chest pain. Initial EKG obtained was consistent with ischemia in the lateral leads.Subsequent cardiac enzymes came back consistent with acute non-STEMI treatment initiated per protocol with consultation placed to cardiology Objective Data Objective Data Vital Signs: Vital Signs Temp Pulse Resp BP Pulse Ox O2 Del Method 98.2 F 58 L 14 161/85 H 96 Room Air 12/29/23 08:04 12/29/23 08:04 12/29/23 08:04 12/29/23 08:04 12/29/23 08:04 12/29/23 08:04 Oxygen Delivery Method Room Air Weight: 70.6 kg Body Mass Index (BMI) 29.4 Intake & Output: Intake and Output for Last 24 Hours 12/27/23 12/28/23 12/29/23 23:59 23:59 23:59 Intake Total 490.58 / 490.58 77.63 / 77.63 Balance 490.58 / 490.58 77.63 / 77.63 Lab / Micro Data 12/29/23 05:52 12/29/23 05:52 Labs: Laboratory Results - last 24 hr 12/28/23 15:22: WBC 6.4, RBC 4.32, Hgb 11.7 L, Hct 37.2, MCV 86.1, MCH 27.1, MCHC 31.5 L, RDW Std Deviation 47.2 H, RDW Coeff of Katherine 15.0 H, Plt Count 148 L, MPV 9.9, Immature Gran % (Auto) 0.300, Neut % (Auto) 64.2, Lymph % (Auto) 24.7, [place] % (Auto) 7.5, Eos % (Auto) 2.8, Baso % (Auto) 0.5, Absolute Neuts (auto) 4.1, Absolute Lymphs (auto) 1.58, Nucleated RBC % 0, PT 14.5, INR 1.1, APTT 29.1, Sodium 139, Potassium 3.7, Chloride 112 H, Carbon Dioxide 20.0 L, Anion Gap 7, BUN 18, Creatinine 1.49 H, Estim Creat Clear Calc 32.67, Est GFR (MDRD) Af Amer 44 L, Est GFR (MDRD) Non-Af 37 L, BUN/Creatinine Ratio 12.1, Glucose 97, Hemoglobin A1c 5.6, Calcium 8.7, Troponin I High Sens 1721 H* 12/28/23 17:37: Troponin I High Sens 1670 H* 12/28/23 21:35: APTT 207.9 H*, Troponin I High Sens 1496 H* 12/29/23 05:52: WBC 5.7, RBC 4.21, Hgb 11.5 L, Hct 36.6 L, MCV 86.9, MCH 27.3, MCHC 31.4 L, RDW Std Deviation 47.4 H, RDW Coeff of Katherine 15.1 H, Plt Count 141 L, MPV 9.3, Immature Gran % (Auto) 0.200, Neut % (Auto) 59.0, Lymph % (Auto) 27.1, [place] % (Auto) 9.3, Eos % (Auto) 3.9, Baso % (Auto) 0.5, Absolute Neuts (auto) 3.4, Absolute Lymphs (auto) 1.55, Nucleated RBC % 0, APTT 46.5 H, Sodium 143, Potassium 3.8, Chloride 114 H, Carbon Dioxide 23.0, Anion Gap 6, BUN 21 H, Creatinine 1.61 H, Estim Creat Clear Calc 29.22, Est GFR (MDRD) Af Amer 41 L, Est GFR (MDRD) Non-Af 34 L, BUN/Creatinine Ratio 13.0, Glucose 102, Calcium 8.7, Phosphorus 4.2, Magnesium 2.4, Total Bilirubin 0.40, AST 17, ALT 11 L, Alkaline Phosphatase 48, Total Protein 6.5, Albumin 3.5, Globulin 3.0, Albumin/Globulin Ratio 1.2, Triglycerides 182, Cholesterol 133, LDL Cholesterol 57, VLDL Cholesterol 36, HDL Cholesterol 40 Radiography Diagnostic Testing: Radiology Impression Chest X-Ray 12/28/23 15:30 IMPRESSION: No radiographic evidence of acute cardiopulmonary disease. Electronically Signed: Arnulfo Arias MD at 15:55 EST , Echocardiogram 12/28/23 15:59 Interpretation Summary Mild concentric left ventricular hypertrophy. The left ventricular ejection fraction is 65 %. Stage 1 diastolic dysfunction. Mild aortic stenosis. Mild (1+) aortic valve insufficiency. Mild (1+) pulmonic valve insufficiency. Ordering Physician: Vikki Haynes Referring Physician: MARIA A ESPITIA Performed By: Ingrid Noriega RDCS Rhythm Strip Rhythm Strip: Sinus Rhythm Rate: 61 Ectopy: None Physical Exam Narrative GENERAL: cooperative HEENT: Atraumatic; normocephalic EYES; Anicteric, Normal Conjunctiva NECK; supple, normal thyroid, RESPIRATORY: Diminished to auscultation CARDIOVASCULAR: Regular S1 S2, GI: soft, normoactive bowel sounds, : No Renal angle tenderness; EXTREMITIES: No edema, no clubbing, MUSCULOSKELETAL: no muscle wasting NEURO: Awake; no lateralizing signs. SKIN: No Rash PSYCH; Flat affect Assessment & Plan Assessment/Plan (1) NSTEMI, initial episode of care: (2) Chest pain: PLAN: Plan Patient is a 68-year-old lady transferred from [facility] with chest pain. Initial EKG obtained was consistent with ischemia in the lateral leads.Subsequent cardiac enzymes came back consistent with acute non-STEMI treatment initiated per protocol with consultation placed to cardiology Acute non-STEMI ? Patient admitted to a monitored bed treatment initiated per protocol with beta-blockers TYLER inhibitors statin therapy as well as heparin. Consult placed to cardiology with plans for patient to undergo left heart catheterization with intervention ? Patient underwent left heart catheterization with successful PCI with MAREK to mid RCA lesion, mid LAD lesion and proximal LAD lesion. Subsequently started on guideline directed medical therapy 2. Hypertension - Blood pressure control not optimal, home medications continued with dose adjustment as needed 3. Dyslipidemia -Patient is on statin therapy, continued at home dose 4. Hypothyroidism - Patient is on levothyroxine home dose continued 5. Valvular heart disease ? 10/14/2021 showed an EF of 65% with mild LVH, lipomatous hypertrophy of the atrial septum, trivial mitral valve, tricuspid valve insufficiency with mild aortic stenosis and indeterminate diastolic dysfunction 6. Paroxysmal A-fib ? Rate controlled with beta-blockers. Patient is not on systemic anticoagulation 7. COPD ? Currently on exacerbation aerosol treatment as needed 8. Tobacco dependence - Counseled on cessation, offered nicotine patch for tobacco cravings 9. DVT prophylaxis ? On heparin Time spent in the patient's overall evaluation,decision-making process, review of diagnostic data, adjustment of management, discussion with other providers, nursing nursing and ancillary staff involved in patient's care documentation 50 Minutes Charges/Coding Visit Charges Inpatient E&M: [id number] [facility] L3
--- NOTE | 2023-12-29 10:11 | CL.D_ITS ---
Patient Name: ADELIA ORDOÑEZ Study Date: 12/29/2023 Performing: Steffen Valverde MD Ht: 62 inches 157.48 cm : 1955 Wt: 155.65 lbs 70.6 kg Age: 68 Gender: female BSA: 1.72 PROCEDURE(S) PERFORMED DC01-(53208)LHC/COR/LV IC12-(73303/C9600)MAREK W/WO PTCA, SINGLE CORONARY ARTERY CLINICAL PROFILE AND INDICATIONS Indications: Suspected CAD Heart Failure: None Stress/Imaging Stress/Image Study Performed: No CAD Presentations: Unstable angina. CONCLUSIONS Severe two-vessel disease involving the proximal to mid LAD and the mid right coronary artery with preserved ejection fraction. RECOMMENDATIONS Referred for immediate PCI DESCRIPTION OF PROCEDURE The patient arrived to the procedure lab. The risks and benefits of the procedure as well as a full description of our services here and current unavailability of surgical backup were fully explained to the patient and/or their significant other prior to the catheterization. The Timeout was completed, verifying the correct patient and procedure. The patient's procedural site was prepped and draped in the usual fashion. Local anesthetic was given subcutaneously to right radial region with Lidocaine 2%. Using a modified Seldinger technique, arterial access was obtained via the right radial artery, a 6Fr sheath was inserted. Left Coronary Artery selective angiography was performed in multiple views using a 5 Fr. 4.0 [place] catheter. Right Coronary Artery selective angiography was then performed in multiple views using a 5 Fr. 4.0 [place] catheter. Left Ventriculography was performed in ADLER projection using a 5 Fr. Pigtail catheter. LV to AO pullback pressures were then recorded. CORONARY ANGIOGRAPHY DOMINANCE: Right Dominant LEFT HEART ASSESSMENT Left Ventricular Ejection Fraction: by LV Gram 65 % Normal LV wall motion Normal Left Ventricular systolic function LEFT MAIN: Angiographically normal LEFT ANTERIOR DESCENDING ARTERY: Proximal to mid segment with 65 to 75% stenosis with minimal distal disease CIRCUMFLEX ARTERY: No significant disease noted RIGHT CORONARY ARTERY: MID RCA: 75 % Stenosis COMPLICATIONS PROCEDURE MEDICATIONS Fentanyl 50 mcg IV Versed 1 mg IV Versed 1 mg IV Oxygen: 2 L/min via nasal cannula Brilinta 180 mg PO @ 12/29/2023 10:03:06 Heparin given IA 12/29/2023 09:54:32 Heparin 6000 unit(s) IV 12/29/2023 10:06:40 Verapamil 2.5mg, Ntg 100mcgs, 3000 units of Heparin given IA 12/29/2023 09:54:32 SUMMARY OF HEMODYNAMIC DATA Time AIR REST ECG 09:31:22 Art 163/69 (101) 09:52:41 AO 113/62 (79) SA 09:56:45 LV 118/-2, 2 10:00:28 LV 124/-5, 0 10:00:36 LV 122/-3, 3 10:01:19 LVp 115/-7, 3 10:01:22 AOp 98/47 (65) 10:01:29 Signed By Steffen Valverde MD On 12/29/2023 10:10:17 Steffen Valverde MD
--- NOTE | 2023-12-29 11:15 | EKG12_ITS ---
Test Reason : PCI Blood Pressure : / mmHG Vent. Rate : 056 BPM Atrial Rate : 056 BPM P-R Int : 158 ms QRS Dur : 084 ms QT Int : 452 ms P-R-T Axes : 069 055 088 degrees QTc Int : 436 ms Sinus bradycardia T wave abnormality, consider lateral ischemia Abnormal ECG When compared with ECG of 29-DEC-2023 04:58, MANUAL COMPARISON REQUIRED, DATA IS UNCONFIRMED Confirmed by Adonay Patel ([id number]), editorial intern JOSE JUAN MARLEY ([id number]) on 01/06/2024 10:18:05 AM Referred By: TED Confirmed By:Adonay Patel
--- NOTE | 2023-12-29 11:25 | CL.I_ITS ---
Patient Name: ADELIA ORDOÑEZ Study Date: 12/29/2023 Performing: Gisela Rodgers MD Ht: 62 inches 157.48 cm : 1955 Wt: 155.65 lbs 70.6 kg Age: 68 Gender: female BSA: 1.72 PROCEDURE(S) PERFORMED IC12-(22917/C9600)MAREK W/WO PTCA, SINGLE CORONARY ARTERY IC12-(31144/C9600)MAREK W/WO PTCA, SINGLE CORONARY ARTERY CLINICAL PROFILE AND CO-MORBIDITIES Indications: Suspected CAD Heart Failure: None Stress/Imaging Stress/Image Study Performed: No CAD Presentations: Unstable angina. CONCLUSIONS Successful MAREK Mid RCA using [place] 3.5x26 mm, optimized proximally using 3.75 mm balloon Successful MAREK Mid LAD using [place] 2.5x12 mm Successful MAREK Prox LAD using [place] 2.75x12 mm, post-dilated using 3.0 mm balloon RECOMMENDATIONS ASA Indefinitley Plavix for at least 12 months DESCRIPTION OF PROCEDURE The patient arrived to the procedure lab. The risks and benefits of the procedure as well as a full description of our services here and current unavailability of surgical backup were fully explained to the patient and/or their significant other prior to the catheterization. The Timeout was completed, verifying the correct patient and procedure. The patient's procedural site was prepped and draped in the usual fashion. Local anesthetic was given subcutaneously to right radial region with Lidocaine 2% Using a modified Seldinger technique,arterial access was obtained via the right radial artery, a 6Fr sheath was inserted. Left Coronary Artery selective angiography was performed in multiple views using a 5 Fr. 4.0 [place] catheter. Right Coronary Artery selective angiography was then performed in multiple views using a 5 Fr. 4.0 [place] catheter. Left Ventriculography was performed in ADLER projection using a 5 Fr. Pigtail catheter. LV to AO pullback pressures were then recorded.The images were reviewed and options discussed. A decision was then made to proceed with an Intervention, IVUS or other adjunct procedure. JR 4.0 Guide catheter was inserted and engaged into the RCA. Runthrough Guide wire was advanced to the RCA. 3.5 x 26 [place] Drug Eluting stent was inserted. Drug Eluting stent was advanced across the lesion in the right coronary, mid. Angiogram performed post stent deployment. 3.5 x 20 NC Emerge Balloon catheter was inserted post stent. Angiogram performed post balloon dilatation. 3.75 x 6 NC E[place] Balloon catheter was inserted post stent. Angiogram performed post balloon dilatation. Angiogram performed post balloon dilatation. XB3.0 Guide catheter was inserted and engaged into the LCA. Runthough Guide wire was advanced to the Cx. Runthrough (2) Guide wire was advanced to the LAD. 2.5 x 12 [place] Drug Eluting stent was advanced across the lesion in the LAD, mid. Angiogram performed post balloon dilatation. 2.5 x 12 NC Emerge Balloon catheter was inserted post stent. 2.75 x 12 [place] Drug Eluting stent was advanced across the lesion in the LAD, proximal. 3 x 8 NC Euphora Balloon catheter was inserted post stent. Angiogram performed post balloon dilatation. The arterial sheath was pulled and a TR Band was applied for hemostasis 15cc air INTERVENTION INFORMATION LESION SITE: RCA (Mid) Lesion Complexity: High/C, lesion length: 24 mm, culprit lesion: Yes Pre Stenosis: 80 % Pre intervention JOCE flow: 3 PROCEDURE: Drug Eluting Stent with post dilatation Post Stenosis: 0 % Post intervention JOCE flow: 3 Lesion Devices: Terumo .014 180cm Runthrough Extra Floppy straight Cordis 6 Fr JR4 100cm Guide Catheter Medtronic 3.5 x 26 CHRISTINE FRONTIER MAREK Miguel Sci NC EMERGE MR 3.50x20 BALLOON Medtronic NC EUPHORA RX 3.75x06 BALLOON LESION SITE: LAD (Mid) Lesion Complexity: Non-High/Non-C, lesion length: 10 mm, culprit lesion: No Pre Stenosis: 90 % Pre intervention JOCE flow: 3 PROCEDURE: Drug Eluting Stent with post dilatation Post Stenosis: 0 % Post intervention JOCE flow: 3 Lesion Devices: Terumo .014 180cm Runthrough Extra Floppy straight Cordis 6 Fr XB3.0 100cm Guide Catheter Terumo .014 180cm Runthrough Extra Floppy straight Medtronic 2.50 x 12 CHRISTINE FRONTIER MAREK Miguel Sci NC EMERGE MR 2.50x12 BALLOON LESION SITE: LAD (Proximal) Lesion Complexity: Non-High/Non-C, lesion length: 10 mm, culprit lesion: No Pre intervention JOCE flow: 3 PROCEDURE: Drug Eluting Stent with post dilatation 0 % Post intervention JOCE flow: 3 Lesion Devices: Cordis 6 Fr XB3.0 100cm Guide Catheter Terumo .014 180cm Runthrough Extra Floppy straight Medtronic 2.75 x 12 CHRISTINE FRONTIER MAREK Medtronic NC EUPHORA RX 3.0x08 BALLOON COMPLICATIONS No Complications PROCEDURE MEDICATIONS Fentanyl 50 mcg IV Versed 1 mg IV Versed 1 mg IV Fentanyl 50 mcg IV Fentanyl 50 mcg IV Versed 1 mg IV Oxygen: 2 L/min via nasal cannula Brilinta 180 mg PO @ 12/29/2023 10:03:06 Heparin given IA 12/29/2023 09:54:32 Heparin 6000 unit(s) IV 12/29/2023 10:06:40 Nitro 200 mcg IC 12/29/2023 10:23:32 Nitro 200 mcg IC 12/29/2023 10:23:32 Nitro 200 mcg IC 12/29/2023 10:31:25 Nitro 200 mcg IC 12/29/2023 10:50:20 Verapamil 2.5mg, Ntg 100mcgs, 3000 units of Heparin given IA 12/29/2023 09:54:32 IV Bolus: .9 NaCl 300 ml total 12/29/2023 11:10:46 SUMMARY OF HEMODYNAMIC DATA Time AIR REST ECG 09:31:22 Art 163/69 (101) 09:52:41 AO 113/62 (79) SA 09:56:45 LV 118/-2, 2 10:00:28 LV 124/-5, 0 10:00:36 LV 122/-3, 3 10:01:19 LVp 115/-7, 3 10:01:22 AOp 98/47 (65) 10:01:29 11:18:08 Signed By Gisela Rodgers MD On 12/29/2023 11:25:08 Gisela Rodgers MD
[2023-12-29] MEDS: 0.9% Normal Saline (1000mL) 1,000 ML 150 ML IV (12:02)
--- NOTE | 2023-12-29 13:17 | CRPH1.INST_ITS ---
General Education Discussed with Patient CAD and cardiac anatomy and function:: Patient communicates acknowledgment Explanation of diagnoses and procedures:: Patient communicates acknowledgment Sign/Symptoms of [place]:: Patient communicates acknowledgment Antiplatelet therapy: Patient communicates acknowledgment Proper use of NTG-SL: Patient communicates acknowledgment Emergency procedures and activation of EMS: Patient communicates acknowledgment Compliance of all prescribed medications: Patient communicates acknowledgment Smoking Risk Factors Patient Nicotine/Smoking Risk Factors Are:: Cigarettes Recommendations Recommendations Include:: Smoking cessation strategies/Smoking packet, Second- hand smoke recommendation and Participation in a smoking cessation program Response Code Nicotine/Smoking Response Code:: Patient communicates acknowledgment Dyslipidemia Risk Factors Patient Dyslipidemia Risk Factors Are:: Total Cholesterol, Triglycerides, HDL and LDL Recommendations Recommendations Include:: Lipid profile provided, Reviewed NCEP/ATP guidelines and Therapeutic Lifestyle Change dietary guidelines Response Code Dyslipidemia Response Code:: Patient communicates acknowledgment Overweight/Obesity Risk Factors Patient Overweight/Obesity Risk Factors Are:: Overweight = 26-29 Recommendations Recommendations Include:: Weight loss of 5-10%, Reduced calorie diet and Exercise 5-7 times/week Response Code Overweight/Obesity:: Patient communicates acknowledgment Hypertension Recommendations Recommendations Include:: Maintain BP <130/85, DASH dietary guidelines, Decrease/maintain normal body weight and Moderation of ETOH Response Code Hypertension:: Patient communicates acknowledgment Diabetes Risk Factors Patient Diabetes Risk Factors Are:: No documented hx of diabetes Metabolic Syndrome Risk Factors Patient Metabolic Syndrome Risk Factors Are [3 of 5]:: Waist circumference > 35 [female] or 40 [male], High triglyceride >150, Hypertension and Low HDL <40 [male] or < 50 [female] Recommendations Recommendations Include:: Reinforce compliance to risk factor modifications and Encouraged follow-up with Primary Care Physician Response Code Metabolic Syndrome Response Code:: Patient communicates acknowledgment Sedentary Risk Factors Patient Sedentary Risk Factors Are:: Lack of regular exercise Recommendations Recommendations Include:: Aerobic exercise 5-7 times/week for 20-30 minutes continuously, Benefits of regular exercise, Discussed home walking program and Monitored Outpatient Cardiac Rehab Response Code Sedentary Response Code:: Patient communicates acknowledgment Stress Recommendations Recommendations Include:: Identification of stressors, and assessment of coping skills and Stress management techniques Response Code Stress Response Code:: Patient communicates acknowledgment
--- NOTE | 2023-12-29 13:17 | CRPHASE1 ---
Patient Communication Patient Information PHII Cardiac Rehab Discussed with Patient:: Yes Guide to Cardiac Rehab Given to Patient:: Yes Cardiac Rehab Facility Choice List Given to Patient:: Yes Communication to Cardiac Rehab Choice Program [facility] CR PHII:: Communication Given to CR Table Games Dealer:: Gisela Rodgers Phase II Cardiac Rehab:: Yes Sessions:: 36 sessions - 3 days/wk, 12 weeks Cardiac Rehabilitation Info Program Information Cardiac Rehabilitation Program Information: Cardiac Rehab The cardiac rehab team at [facility] consists of highly skilled exercise physiologists, nurses, respiratory therapists and physicians working together with you. Our purpose is to help you have a full recovery and achieve the goals you set for yourself. Over the years many of our patients have returned to activities they assumed they would never do again! We can help restore your confidence and motivation to make lifestyle changes that can have a significant impact on your health and quality of life! We can help answer questions and concerns you may have about exercise, lifestyle, medications, diet, stress and anxiety which are common following a hospitalization. WE monitor ECG and vital signs during exercise and discuss your progress with you and report to your physician(s). Cardiac Rehab is proven to help reduce readmissions, improve functional capacity and lower recurrence of problems with your heart. Our Cardiac Rehab program is Certified by the [place] [employer] of Cardio-Vascular and Pulmonary Rehabilitation (AACVPR) and Accredited by the [place] [employer] through our [facility]. You can contact us at . We invite you to call us with your questions or to get started in our program. If you have other questions or concerns be sure to ask your physician/provider during your follow-up visit. WE look forward to seeing you!
--- NOTE | 2023-12-29 13:30 | CASEMGMT ---
RN CM Face to Face with patient for initial transition planning/care coordination assessment. RN CM introduced self and role at [facility]. Patient lying in bed, alert and oriented, family at bedside. Patient willing to participate in assessment and is able to answer all questions appropriately. Care providers, pharmacy, and demographics verified. PCP: Mandie Aldana Specialists: EDDIE, ordinary seaman Preferred Pharmacy: [facility] Gomes; [facility] Retail at discharge. Insurance: [employer] Prescription Benefit: yes Living Will/HPOA: no, in the process of completing LNOK: , daughter, sister Living Arrangements: Patient lives with in a single story home with 2 steps to enter. Patient is independent at home. Transportation: self, family DME/HHC: Patient has nebulizer and BP cuff at home. No previous HHC or SNF. Patient wishes to discharge home, denies need for home health at this time. Patient states he has no further needs or concerns at this time. CM to follow for discharge planning needs that may arise. Disposition Plan: Patient to discharge home with family support and follow-up plans in place. Arpita MARTIENZ, RN, CM
[2023-12-29] MEDS: 0.9% Saline Lock 10 ML Syringe IV (14:25)
[2023-12-29] MEDS: Ondansetron 4 MG/2 ML Vial IV (14:25)
[2023-12-29] MEDS: Clopidogrel Bisulfate 300 MG Tablet PO (18:09)
[2023-12-29] MEDS: Atorvastatin Calcium 80 MG Tablet PO (21:05)
[2023-12-30 04:00] VITALS: BP 158/96; PULSE 64; RESP 16; TEMP 36.9; O2SAT 95
[2023-12-30] MEDS: Levothyroxine 100 MCG Tablet PO (05:15)
[2023-12-30 06:00] VITALS: BMI 29.5
[2023-12-30 06:42] LABS: Hematocrit 34.9 % (37-47); Hemoglobin 10.6 g/dL (12.0-15.0); Mean Corp Hgb Conc 30.4 g/dL (32-36); Mean Corpuscular Hgb 26.4 pg (27.0-32.0); Mean Platelet Vol. 10.1 fl (6.2-12.0); Platelet Count 143 K/mm3 (150-450); RBC Distribution Width CV 15.3 % (11.6-14.6); RBC Distribution Width SD 48.9 fl (35.1-43.9); Red Blood Count 4.01 M/mm3 (4.2-5.4); White Blood Count 6.8 K/mm3 (4.4-11.0)
[2023-12-30 07:19] LABS: ACT Activated Clotting Time 358 sec (74-137)
[2023-12-30 07:20] LABS: ACT Activated Clotting Time 293 sec (74-137)
[2023-12-30 07:23] VITALS: O2SAT 97
[2023-12-30 08:04] LABS: AST(SGOT) 17 U/L (15-37); Alanine Aminotransfer ALT/SGPT 11 U/L (13-56); Albumin, Serum 3.3 g/dL (3.2-5.0); Alkaline Phosphatase 48 U/L (45-117); Anion Gap 8 (5-15); BUN 17 mg/dL (7-18); BUN/Creat Ratio 11.5 RATIO (10-20); Calcium,Total 8.6 mg/dL (8.5-10.1); Chloride 113 mmol/L (98-107); Creatinine, Serum 1.48 mg/dL (0.55-1.02); EST Glomerular Filtration Rate 37 mL/min (>60); Est Glom Filt Rate - Afr Amer 45 mL/min (>60); Estimated Creatinine Clearance 31.85 ml/min; Globulin 3.2 g/dL (2.2-4.2); Glucose 91 mg/dL (74-106); Potassium 3.7 mmol/L (3.5-5.1); Protein, Total 6.5 g/dL (6.4-8.2); Sodium Level 140 mmol/L (136-145)
--- NOTE | 2023-12-30 08:07 | PCM.PN.CARD ---
Subjective Subjective The patient is doing well by her report she denies any anginal type symptoms and denies any shortness of breath. She has been up in the room and ambulating without restrictions. She is tolerating her medication she denies any dyspnea. Objective Data Vital Signs: Vital Signs Temp Pulse Resp BP Pulse Ox O2 Del Method 98.4 F 64 16 158/96 H 97 Room Air 12/30/23 04:00 12/30/23 04:00 12/30/23 04:00 12/30/23 04:00 12/30/23 07:23 12/30/23 07:23 Oxygen Delivery Method Room Air Weight: 156 lb 4.924 oz Body Mass Index (BMI) 29.5 Intake & Output: Intake and Output for Last 24 Hours 12/28/23 12/29/23 12/30/23 23:59 23:59 23:59 Intake Total 490.58 / 490.58 1482.63 / 1482.63 Balance 490.58 / 490.58 1482.63 / 1482.63 Lab / Micro Data Attestation: I reviewed the patient's lab results. 12/30/23 05:17 12/30/23 05:17 Labs: Laboratory Results - last 24 hr 12/29/23 10:15: Activated Clotting Time 358 H 12/29/23 11:15: Activated Clotting Time 293 H 12/30/23 05:17: WBC 6.8, RBC 4.01 L, Hgb 10.6 L, Hct 34.9 L, MCV 87.0, MCH 26.4 L, MCHC 30.4 L, RDW Std Deviation 48.9 H, RDW Coeff of Katherine 15.3 H, Plt Count 143 L, MPV 10.1, Sodium 140, Potassium 3.7, Chloride 113 H, Carbon Dioxide 19.0 L, Anion Gap 8, BUN 17, Creatinine 1.48 H, Estim Creat Clear Calc 31.85, Est GFR (MDRD) Af Amer 45 L, Est GFR (MDRD) Non-Af 37 L, BUN/Creatinine Ratio 11.5, Glucose 91, Calcium 8.6, Total Bilirubin 0.30, AST 17, ALT 11 L, Alkaline Phosphatase 48, Total Protein 6.5, Albumin 3.3, Globulin 3.2, Albumin/Globulin Ratio 1.0 Rhythm Strip Rhythm Strip: Sinus Rhythm Rate: 65 Ectopy: None Cardiology Labs/Tests 12/30/23 05:17: WBC 6.8, RBC 4.01 L, Hgb 10.6 L, Hct 34.9 L, MCV 87.0, MCH 26.4 L, MCHC 30.4 L, Plt Count 143 L, MPV 10.1, Sodium 140, Potassium 3.7, Chloride 113 H, Carbon Dioxide 19.0 L, Anion Gap 8, BUN 17, Creatinine 1.48 H, Est GFR (MDRD) Af Amer 45 L, Est GFR (MDRD) Non-Af 37 L, BUN/Creatinine Ratio 11.5, Glucose 91, Calcium 8.6, Total Bilirubin 0.30 Rhythm: EKG: ECHO: Stress Test: Cardiac Cath: PCI: CT Surgery: Holter monitor: EPS: PPM: CXR: Chest CT Scan: Radiography Diagnostic Testing: Radiology Impression Echocardiogram 12/28/23 15:59 Interpretation Summary Mild concentric left ventricular hypertrophy. The left ventricular ejection fraction is 65 %. Stage 1 diastolic dysfunction. Mild aortic stenosis. Mild (1+) aortic valve insufficiency. Mild (1+) pulmonic valve insufficiency. Ordering Physician: Vikki Haynes Referring Physician: MARIA A ESPITIA Performed By: Ingrid Noriega RDCS Physical Exam Const oriented x3 HEENT normocephalic Eyes EOMs intact bilaterally Neck no JVD Chest inspection of chest normal Resp normal respiratory effort and clear to auscultation bilaterally Cardio regular rate, regular rhythm, S1 normal heart sound, S2 normal heart sound, no rub and no gallops Heart Sounds: murmur systolic III/ harsh right sternal border to the neck Peripheral Pulses: radial pulses present right (Small ecchymotic area with no hematoma noted.) 2+ GI soft to palpation Extremity no pedal edema Skin no rashes or lesions noted Neuro Neuro Narrative: Alert and oriented x 3 Psych mental status grossly normal Assessment & Plan Assessment/Plan (1) NSTEMI, initial episode of care: PLAN: Patient presented with a non-STEMI at [facility] and self transferred to [facility]. She underwent left heart catheterization on 12/29/2023. The catheterization revealed severe disease in the mid RCA proximal and mid LAD. She underwent stenting of all 3 lesions without incident the patient will be continued on her aspirin indefinitely and Plavix for at least 1 year uninterrupted. Patient's secondary risk factors will be aggressively treated her she is on medical therapy for hypertension and intensive statin therapy with atorvastatin 80 mg daily. Fasting lipids and liver functions to be reevaluated in 6 to 8 weeks. (2) Nonrheumatic aortic (valve) stenosis with insufficiency: PLAN: The patient has mild to moderate aortic stenosis peak gradient of 30 mean gradient of 17 on echo done this admission with a left-ventricular ejection fraction of 65%. The patient be followed up longitudinally with echocardiograms as indicated. (3) Paroxysmal atrial fibrillation: PLAN: The patient is remained in sinus rhythm throughout her hospitalization. We do not have a handle on the burden of any paroxysmal atrial fibrillation she may be experiencing she does appear to know when she has atrial fibs. At this point in time I do not feel that oral anticoagulation is indicated. We will reevaluate her for potential symptoms when she is seen in the office in 1 to 2 weeks. (4) Essential hypertension: PLAN: The patient's blood pressure has been erratic while hospitalized. We will reevaluate it in the outpatient setting in 1 to 2 weeks and make a decision then concerning adjustment of her medical therapy. PLAN: Plan 1. The patient can be discharged to home today and follow-up with the [facility] in 1 to 2 weeks in the office with either the KARLIE or Dr. Patel. 2. Will reassess hypertension and need for potential oral anticoagulation in the ambulatory setting. Would recommend 30-day event recorder at some point in time to determine atrial for burden. 3. Continue intensive statin therapy and recheck fasting lipids and liver functions in 6 to 8 weeks. Charges/Coding Visit Charges Inpatient E&M: 74707 [facility] Hosp L3
--- NOTE | 2023-12-30 08:32 | DS.PCM_ITS ---
Providers Date of Admission: 12/28/23 Date of Discharge: 12/30/23 Primary Care Physician: SUNITA Haynes Consultations 12/28/23 15:59 Consult: Cardiology Routine Consulting Provider: Adonay Patel Reason for Consult: Chest Pain EMERGENT Consult: No MD Notified: Yes Date Notified: 12/28/23 Time Notified: 14:54 Method of Notification: Verbal 12/28/23 18:01 Consult: Onc/Wound/quality director Routine Comment: Reason for Consult:: L ankle wound Reason For Visit: NSTEMI Diagnosis Discharge Diagnosis (1) NSTEMI, initial episode of care: Status: Acute Code(s): I21.4 - Non-ST elevation (NSTEMI) myocardial infarction (2) Nonrheumatic aortic (valve) stenosis with insufficiency: Status: Chronic Code(s): I35.2 - Nonrheumatic aortic (valve) stenosis with insufficiency (3) Paroxysmal atrial fibrillation: Status: Acute Code(s): I48.0 - Paroxysmal atrial fibrillation (4) Essential hypertension: Status: Chronic Code(s): I10 - Essential (primary) hypertension Plan Patient is a 68-year-old lady transferred from [facility] with chest pain. Initial EKG obtained was consistent with ischemia in the lateral leads.Subsequent cardiac enzymes came back consistent with acute non-STEMI treatment initiated per protocol with consultation placed to cardiology 1. Acute non-STEMI ? Patient admitted to a monitored bed treatment initiated per protocol with beta-blockers AP inhibitors statin therapy as well as heparin. Consult placed to cardiology with plans for patient to undergo left heart catheterization with intervention ? Patient underwent left heart catheterization with successful PCI with MAREK to mid RCA lesion, mid LAD lesion and proximal LAD lesion. Subsequently started on guideline directed medical therapy ? Echo report as below Mild concentric left ventricular hypertrophy. The left ventricular ejection fraction is 65 %. Stage 1 diastolic dysfunction. Mild aortic stenosis. Mild (1+) aortic valve insufficiency. Mild (1+) pulmonic valve insufficiency. 2. Hypertension - Blood pressure control not optimal, home medications continued with dose adjustment as needed 3. Dyslipidemia -Patient is on statin therapy, continued at home dose 4. Hypothyroidism - Patient is on levothyroxine home dose continued 5. Valvular heart disease ? 10/14/2021 showed an EF of 65% with mild LVH, lipomatous hypertrophy of the atrial septum, trivial mitral valve, tricuspid valve insufficiency with mild aortic stenosis and indeterminate diastolic dysfunction 6. Paroxysmal A-fib ? Rate controlled with beta-blockers. Patient is not on systemic antic oagulation 7. COPD ? Currently on exacerbation aerosol treatment as needed 8. Tobacco dependence - Counseled on cessation, offered nicotine patch for tobacco cravings 9. DVT prophylaxis ? On heparin Time spent in the patient's overall evaluation,decision-making process, review of diagnostic data, adjustment of management, discussion with other providers, nursing nursing and ancillary staff involved in patient's care documentation 35 Minutes Medications at Discharge Home Medications acetazolamide 250 mg tablet 250 mg PO DAILY for eyes 09/29/21 levothyroxine 100 mcg tablet 100 mcg PO DAILY thyroid 09/29/21 aspirin 81 mg tablet,delayed release (Adult Aspirin Regimen) 81 mg PO DAILY heart 11/05/21 atorvastatin 80 mg tablet 80 mg PO QHS #90 tabs 12/30/23 clopidogrel 75 mg tablet 75 mg PO DAILY #90 tabs 12/30/23 losartan 50 mg tablet 50 mg PO DAILY #90 tabs 12/30/23 metoprolol succinate 50 mg tablet,extended release 24 hr 50 mg PO DAILY #90 tabs 12/30/23 nicotine 21 mg/24 hr daily transdermal patch 21 mg transdermal DAILY@2200 #28 ea 12/30/23 spironolactone 50 mg tablet 50 mg PO DAILY #30 tabs 12/30/23 Physical Exam Narrative GENERAL: cooperative HEENT: Atraumatic; normocephalic EYES; Anicteric, Normal Conjunctiva NECK; supple, normal thyroid, RESPIRATORY: Diminished to auscultation CARDIOVASCULAR: Regular S1 S2, GI: soft, normoactive bowel sounds, : No Renal angle tenderness; EXTREMITIES: No edema, no clubbing, MUSCULOSKELETAL: no muscle wasting NEURO: Awake; no lateralizing signs. SKIN: No Rash PSYCH; Flat affect Weight / BMI Weight Weight: 70.9 kg Body Mass Index (BMI) 29.5 ABG / Lab / Microbiology Data 12/30/23 05:17 12/30/23 05:17 Laboratory: Laboratory Results - last 24 hr 12/29/23 10:15: Activated Clotting Time 358 H 12/29/23 11:15: Activated Clotting Time 293 H 12/30/23 05:17: WBC 6.8, RBC 4.01 L, Hgb 10.6 L, Hct 34.9 L, MCV 87.0, MCH 26.4 L, MCHC 30.4 L, RDW Std Deviation 48.9 H, RDW Coeff of Katherine 15.3 H, Plt Count 143 L, MPV 10.1, Sodium 140, Potassium 3.7, Chloride 113 H, Carbon Dioxide 19.0 L, Anion Gap 8, BUN 17, Creatinine 1.48 H, Estim Creat Clear Calc 31.85, Est GFR (MDRD) Af Amer 45 L, Est GFR (MDRD) Non-Af 37 L, BUN/Creatinine Ratio 11.5, Glucose 91, Calcium 8.6, Total Bilirubin 0.30, AST 17, ALT 11 L, Alkaline Phosphatase 48, Total Protein 6.5, Albumin 3.3, Globulin 3.2, Albumin/Globulin Ratio 1.0 Radiography Diagnostic Testing: Radiology Impression Echocardiogram 12/28/23 15:59 Interpretation Summary Mild concentric left ventricular hypertrophy. The left ventricular ejection fraction is 65 %. Stage 1 diastolic dysfunction. Mild aortic stenosis. Mild (1+) aortic valve insufficiency. Mild (1+) pulmonic valve insufficiency. Ordering Physician: Vikki Haynes Referring Physician: MANDIE ESPITIA Performed By: Ingrid Noriega RDCS D/C Instructions Discharge Diet: Low fat / Low cholesterol Discharge Activity: Return to Normal Activity Call your doctor if you observe: Fever of 101 or Higher, Shortness of breath, Fainting spells and Chest pain Meaningful Use Info Meaningful Use Diagnoses (Choose all that apply): AMI AMI/Post PCI/Angioplasty Aspirin given w/in 24hrs of arrival?: Yes ASA at discharge?: Yes Antiplatelet Therapy at Discharge:: Yes Statins at discharge?: Yes Ap/ARB at discharge?: Yes Beta Lindsey at discharge?: Yes Done w/ Acute [place] measure.: Yes Documented LVEF (%): 65 Discharge Plan Admission Admit Date/Time: 12/28/23 14:52 Attending Provider: Rinku Daniels Primary Care Provider: Mandie Espitia Consulting Providers: Adonay Patel; Vikki Haynes Discharge Orders/Prescriptions Prescriptions: New nicotine 21 mg/24 hr Patch 24 Hour 21 mg transdermal DAILY@2200 Qty: 28 0RF spironolactone 50 mg Tablet 50 mg PO DAILY Qty: 30 0RF losartan 50 mg Tablet 50 mg PO DAILY Qty: 90 0RF atorvastatin 80 mg Tablet 80 mg PO QHS Qty: 90 0RF metoprolol succinate 50 mg Tablet Extended Release 24 Hr 50 mg PO DAILY Qty: 90 0RF clopidogrel 75 mg Tablet 75 mg PO DAILY Qty: 90 0RF Continued acetazolamide 250 mg tablet 250 mg PO DAILY levothyroxine 100 mcg tablet 100 mcg PO DAILY aspirin [Adult Aspirin Regimen] 81 mg tablet,delayed release (DR/EC) 81 mg PO DAILY Discontinued metoprolol succinate 25 mg tablet extended release 24 hr 25 mg PO DAILY simvastatin 10 mg tablet 40 mg PO QHS losartan 25 mg tablet 50 mg PO BID Referrals / Follow Up: Adonay Patel MD [Med Staff - Active Staff] - Within 2 Weeks Mandie Espitia PA [Primary Care Provider] - Within 2 Weeks Disposition Disposition (needs filled in before D/C Order can be placed): Home, Self Care Charges/Coding Visit Charges Inpatient E&M: 36472 Disch Hosp >30min
[2023-12-30 08:45] VITALS: BP 163/82; PULSE 66; RESP 18; TEMP 36.3; O2SAT 96
[2023-12-30] MEDS: AcetaZOLAMIDE 250 MG Tablet PO (08:47)
[2023-12-30 08:48] VITALS: BP 163/82; PULSE 66
[2023-12-30] MEDS: Clopidogrel Bisulfate 75 MG Tablet PO (08:48)
[2023-12-30] MEDS: Spironolactone 50 MG Tablet PO (08:48)
[2023-12-30] MEDS: Losartan Potassium 50 MG Tablet PO (08:48)
[2023-12-30] MEDS: Metoprolol(XL)Succ 50 MG Tablet PO (08:48)
[2023-12-30] MEDS: Aspirin E.C. 81 MG Tablet PO (08:48)
--- NOTE | 2023-12-30 09:51 | PHA.DC.MC.R ---
Pharmacy [facility] has performed discharge medication reconciliation and counseling for this patient. The patient's discharge medication list was reviewed for discrepancies and discrepancies were resolved. The patient was counseled on the following discharge medications and changes in medications for homegoing were reviewed. The Reason for Use, instructions for use, and potential side effects were reviewed for all new medications. The patient's questions regarding all of their medications were answered. 1. Atorvastatin 80 mg PO daily 2. Clopidogrel 75 mg PO daily 3. Losartan 50 mg PO daily 4. Metoprolol succinate 50 mg PO daily 5. Nicotine 21 mg patch daily 6. Spironolactone 50 mg PO daily The patient was able to verbally demonstrate an understanding of their discharge medications. Medications at Discharge Home Medications acetazolamide 250 mg tablet 250 mg PO DAILY for eyes 09/29/21 levothyroxine 100 mcg tablet 100 mcg PO DAILY thyroid 09/29/21 aspirin 81 mg tablet,delayed release (Adult Aspirin Regimen) 81 mg PO DAILY heart 11/05/21 atorvastatin 80 mg tablet 80 mg PO QHS #90 tabs 12/30/23 clopidogrel 75 mg tablet 75 mg PO DAILY #90 tabs 12/30/23 losartan 50 mg tablet 50 mg PO DAILY #90 tabs 12/30/23 metoprolol succinate 50 mg tablet,extended release 24 hr 50 mg PO DAILY #90 tabs 12/30/23 nicotine 21 mg/24 hr daily transdermal patch 21 mg transdermal DAILY@2200 #28 ea 12/30/23 spironolactone 50 mg tablet 50 mg PO DAILY #30 tabs 12/30/23
--- NOTE | 2023-12-30 10:00 | EKG12_ITS ---
Test Reason : AM EKG Blood Pressure : / mmHG Vent. Rate : 065 BPM Atrial Rate : 065 BPM P-R Int : 146 ms QRS Dur : 086 ms QT Int : 414 ms P-R-T Axes : 068 063 123 degrees QTc Int : 430 ms Normal sinus rhythm ST & T wave abnormality, consider anterolateral ischemia Abnormal ECG When compared with ECG of 29-DEC-2023 13:05, MANUAL COMPARISON REQUIRED, DATA IS UNCONFIRMED Confirmed by Adonay Patel ([id number]), film or videotape editor TIM WILKINS ([id number]) on 01/13/2024 6:19:24 AM Referred By: ÁLVARO Confirmed By:Adonay Patel
[2023-12-30 10:37] VITALS: BP 154/73; PULSE 66; RESP 18; TEMP 36.3; O2SAT 96
== END 2023-12-30 12:26 | disposition home or self-care (01) | DRG 322 ==
LOC: ED 15:04 → PCU 15:19
PROVIDERS: Internal Medicine Cardiovascular Disease; Admitting Provider Internal Medicine; Emergency Provider Emergency Medicine; PCP Physician Assistant; Visit Provider Internal Medicine
DX: I21.4 Non-ST elevation (NSTEMI) myocardial infarction (principal); L97.529 Non-pressure chronic ulcer of other part of left foot with unspecified severity; J44.9 Chronic obstructive pulmonary disease, unspecified; I48.0 Paroxysmal atrial fibrillation; E03.9 Hypothyroidism, unspecified; N18.9 Chronic kidney disease, unspecified; I12.9 Hypertensive chronic kidney disease with stage 1 through stage 4 chronic kidney disease, or unspecified chronic kidney disease; I35.2 Nonrheumatic aortic (valve) stenosis with insufficiency; I16.0 Hypertensive urgency; I25.2 Old myocardial infarction; I25.10 Atherosclerotic heart disease of native coronary artery without angina pectoris; F41.9 Anxiety disorder, unspecified; H35.52 Pigmentary retinal dystrophy; E78.5 Hyperlipidemia, unspecified; Z72.0 Tobacco use; R01.1 Cardiac murmur, unspecified; Z79.82 Long term (current) use of aspirin
CPT/HCPCS: 36415; 71045; 80048; 80053; 80061; 83036; 83735; 84100; 84484; 85025; 85027; 85347; 85610; 85730; 92928; 93005; 93306; 93458; 94668; 97802; 99152; 99153; 99285; 99406; J7030; J7040; A4216; C1769; C1887; C1894; C9600; J2405; Q9967

== ENCOUNTER 2024-09-28 09:38 | Inpatient (IN) | payer MEDICARE, SELFPAY ==
[2024-09-28] VITALS (15 sets, daily range): BP systolic 163–218; BP diastolic 46–109; PULSE 58–83; RESP 15–18; TEMP 36.2–36.6; O2SAT 95–99; BMI 29.7; BMI 29.8
--- NOTE | 2024-09-28 09:59 | EKG12_ITS ---
Test Reason : Blood Pressure : */* mmHG Vent. Rate : 61 BPM Atrial Rate : 61 BPM P-R Int : 134 ms QRS Dur : 86 ms QT Int : 438 ms P-R-T Axes : 64 60 114 degrees QTcB Int : 440 ms Normal sinus rhythm T wave abnormality, consider anterolateral ischemia Abnormal ECG no new changes comapared to ECG 12/30/2023 Confirmed by Adonay Patel ([id number]), map editor JOSE JUAN MARLEY ([id number]) on 10/01/2024 6:53:38 AM Referred By: Confirmed By: Adonay Patel
--- NOTE | 2024-09-28 10:15 | RAD_ITS ---
STUDY: X-RAY CHEST REASON FOR EXAM: Female, 69 years old. Stroke TECHNIQUE: Single AP portable view of the chest. COMPARISON: Comparison is made with prior study dated December 28, 2023. FINDINGS: EKG electrodes are seen. The lungs are clear and expanded. There is no demonstrated pleural abnormality. Normal size heart. Normal mediastinum and denice. Normal visualized pulmonary arteries. Normal visualized aortic arch and descending thoracic aorta. There are degenerative changes of the visualized thoracic spine. Normal visualized ribs, clavicles, and shoulders. There is no demonstrated abnormality of the visualized soft tissue structures of the upper abdomen. RAD/Chest 1 View (Portable) IMPRESSION: No acute abnormality is seen. Electronically Signed: Skyler Mazariegos MD at 11:08 EST ,
[2024-09-28 10:30] LABS: Bedside Glucose 105 mg/dL (74-106)
[2024-09-28 10:31] LABS: Absolute Lymphocyte Count 0.76 X10^3/uL (0.83-4.51); Absolute Neutrophil Count 5.9 X10^3/uL (2.0-7.7); Basophil# 0.03 X10^3/uL; Basophil% 0.4 % (0-1); Eosinophil# 0.07 X10^3/uL; Hematocrit 39.4 % (37-47); Lymphocyte # 0.76 X10^3/ul (0.83-4.51); Lymphocyte % 10.6 % (19-41); Mean Corp Hgb Conc 30.5 g/dL (32-36); Mean Corpuscular Hgb 25.4 pg (27.0-32.0); Mean Corpuscular Volume 83.3 fL (81-99); Mean Platelet Vol. 9.7 fl (6.2-12.0); Monocyte# 0.41 X10^3/uL; Monocyte% 5.7 % (0-10); NRBC Flagged by Analyzer 0 % (0-5); Neutrophil # 5.86 X10^3/uL (2.7-7.7); Neutrophil % 81.9 % (47-70); POSITIVE COUNT YES; RBC Distribution Width CV 15.6 % (11.6-14.6); RBC Distribution Width SD 47.2 fl (35.1-43.9); Red Blood Count 4.73 M/mm3 (4.2-5.4); White Blood Count 7.2 K/mm3 (4.4-11.0)
--- NOTE | 2024-09-28 10:33 | CT_ITS ---
STUDY: CT BRAIN WITHOUT CONTRAST REASON FOR EXAM: Female, 69 years old. Dizziness RADIATION DOSAGE (If Supplied By Facility): CTDIvol = ( 44.99 ) mGy, DLP = ( 779.24 ) mGycm TECHNIQUE: Transaxial CT imaging of the brain was performed without administration of intravenous contrast material. Individualized dose optimization techniques were used for this CT. COMPARISON: No relevant priors. FINDINGS: Normal soft tissue structures. Normal calvarium. There is mild cerebral atrophy with widening of the extra-axial spaces and ventricular dilatation. Normal white matter tracts of the cerebral hemispheres. Normal basal ganglia and thalami. Normal brainstem. Normal cerebellum. There is no intracranial hemorrhage. There are no findings of an acute ischemic infarction. Atherosclerotic plaque formation of the cavernous portions of the internal carotid arteries bilaterally Normal visualized paranasal sinuses. CT/Brain/Head without Contrast IMPRESSION: Chronic involutional changes of the brain. Electronically Signed: Skyler Mazariegos MD at 11:16 EST ,
[2024-09-28 10:39] LABS: Anion Gap 5 (5-15); BUN 16 mg/dL (7-18); BUN/Creat Ratio 11.3 RATIO (10-20); Chloride 112 mmol/L (98-107); Creatinine, Serum 1.42 mg/dL (0.55-1.02); EST Glomerular Filtration Rate 39 mL/min (>60); Est Glom Filt Rate - Afr Amer 47 mL/min (>60); Estimated Creatinine Clearance 32.88 ml/min; Glucose 117 mg/dL (74-106); Potassium 4.4 mmol/L (3.5-5.1); Sodium Level 139 mmol/L (136-145)
--- NOTE | 2024-09-28 10:42 | EDS_ITS ---
HPI History of Present Illness Chief Complaint: Dizziness Narrative Narrative: Chief complaint and HPI: Dizziness, generalized weakness, nausea. 69-year-old female with history of proximal atrial fibrillation not on anticoagulation, CAD on Plavix, HTN, hypothyroidism presents for evaluation of multiple complaints. Patient states over the past couple days she has had general malaise including decreased appetite, nausea, fatigue. At baseline, patient has insomnia. She states when she woke up this morning she woke up with dizziness that she describes as the room spinning. No history of vertigo. Endorses generalized weakness in which her body feels heavy. Endorses nausea without emesis or abdominal pain. Patient states her taste has been off for the past several days. She has had decreased p.o. intake secondary to nothing tasting well. Patient denies any fever, chills, URI symptoms, shortness of breath, chest pain, abdominal pain, dysuria. Denies any dysarthria, aphasia, focal neurological deficit, numbness or tingling. Review of systems: See HPI Medications: As listed on the chart Allergies: As listed on the chart PFSH: Per chart Vital signs: As listed on the chart. Reviewed. Physical exam: Gen: A&O x3, NAD Head: Normocephalic, atraumatic Eyes: No sclera icterus, conjunctiva clear, PERRL, EOMI, no nystagmus ENT: Dry mucous membranes, No facial asymmetry Neck: Trachea midline, No JVD CV: RRR, no murmurs, no peripheral edema Resp: Lungs CTA BL, no w/r/c GI: Abd soft, non-distended, non-tender, no r/r/g Musc: Full ROM, no deformity, strength +5/5 in all extremities, no pronator drift, no ataxia with [id number] or [id number] testing Skin: Warm, dry, intact Neuro: Alert, oriented, grossly intact, sensation intact, no focal deficits Psych: Cooperative, appropriate mood and affect [facility] Medical History Non-ST elevated myocardial infarction (non-STEMI) Paroxysmal atrial fibrillation PAC (premature atrial contraction) Nonrheumatic aortic (valve) stenosis with insufficiency Uterine cancer CKD (chronic kidney disease) Mixed hyperlipidemia Essential hypertension Hypothyroidism Thyroid nodule Premature ventricular contraction Atrial fibrillation Cardiac murmur Home Medications ?Medication ?Instructions ?Recorded ?Last Taken ?Type acetazolamide 250 mg tablet 250 mg PO DAILY for eyes 09/29/21 09/28/24 History levothyroxine 100 mcg tablet 100 mcg PO DAILY thyroid 09/29/21 09/27/24 History aspirin 81 mg tablet,delayed 81 mg PO DAILY heart 11/05/21 09/27/24 History release (Adult Aspirin Regimen) metoprolol succinate 50 mg 50 mg PO DAILY #90 tabs 12/30/23 09/27/24 Rx tablet,extended release 24 hr atorvastatin 80 mg tablet 80 mg PO QHS #90 tabs 03/28/24 09/27/24 Rx clopidogrel 75 mg tablet 75 mg PO DAILY #90 tabs 03/29/24 09/27/24 Rx losartan 50 mg tablet 50 mg PO BID 06/27/24 09/27/24 History Allergy/AdvReac Type Severity Reaction Status Date / Time bupropion (From Wellbutrin) AdvReac Severe Shakiness Verified 09/28/24 09:38 Family History Mother CHF (congestive heart failure) Kidney disease Myocardial infarction Hypertension Father No problems noted. Aunt CAD (coronary artery disease) CHF (congestive heart failure) History of coronary artery bypass surgery Uncle CAD (coronary artery disease) History of coronary artery bypass surgery Diabetes Sister CAD (coronary artery disease) Myocardial infarction Brother CAD (coronary artery disease) Myocardial infarction Diabetes Brother CAD (coronary artery disease) Myocardial infarction Grandmother Diabetes Surgical History History of partial hysterectomy History of appendectomy History of bilateral cataract extraction Social History Smoking Status: Current every day smoker tobacco type: cigarettes alcohol intake: never substance use type: does not use caffeine: No EXAM Physical Exam Const Vital Signs: 09/28/24 09:39 09/28/24 10:08 09/28/24 10:38 Temperature 97.9 F Temperature Source Oral Pulse Rate 65 59 L Pulse Rate [Lying] Pulse Rate [Sitting (for 1 minute prior to obtaining)] Pulse Rate [Standing (for 1 minute prior to obtaining)] Respiratory Rate 16 15 Blood Pressure 182/79 H 207/97 H Blood Pressure [Lying] Blood Pressure [Sitting (for 1 minute prior to obtaining)] Blood Pressure [Standing (for 1 minute prior to obtaining)] Blood Pressure Mean 113 133 Blood Pressure Mean [Lying] Blood Pressure Mean [Sitting (for 1 minute prior to obtaining)] Blood Pressure Mean [Standing (for 1 minute prior to obtaining)] Pulse Ox 99 99 99 Oxygen Delivery Method Room Air Room Air 09/28/24 10:41 09/28/24 11:00 09/28/24 12:00 Temperature Temperature Source Pulse Rate 59 L 58 L Pulse Rate [Lying] 59 L Pulse Rate [Sitting (for 1 minute prior to obtaining)] 65 Pulse Rate [Standing (for 1 minute prior to obtaining)] 75 Respiratory Rate 16 16 Blood Pressure 181/77 H 186/77 H Blood Pressure [Lying] 218/90 H Blood Pressure [Sitting (for 1 minute prior to obtaining)] 190/86 H Blood Pressure [Standing (for 1 minute prior to obtaining)] 192/109 H Blood Pressure Mean 111 113 Blood Pressure Mean [Lying] 132 Blood Pressure Mean [Sitting (for 1 minute prior to obtaining)] 120 Blood Pressure Mean [Standing (for 1 minute prior to obtaining)] 136 Pulse Ox 95 98 Oxygen Delivery Method Room Air Room Air 09/28/24 13:00 09/28/24 14:00 09/28/24 14:38 Temperature 97.9 F Temperature Source Pulse Rate 64 63 63 Pulse Rate [Lying] Pulse Rate [Sitting (for 1 minute prior to obtaining)] Pulse Rate [Standing (for 1 minute prior to obtaining)] Respiratory Rate 15 16 16 Blood Pressure 180/46 H 175/61 H 175/61 H Blood Pressure [Lying] Blood Pressure [Sitting (for 1 minute prior to obtaining)] Blood Pressure [Standing (for 1 minute prior to obtaining)] Blood Pressure Mean 90 99 99 Blood Pressure Mean [Lying] Blood Pressure Mean [Sitting (for 1 minute prior to obtaining)] Blood Pressure Mean [Standing (for 1 minute prior to obtaining)] Pulse Ox 95 97 97 Oxygen Delivery Method Room Air Room Air 09/28/24 15:00 Temperature Temperature Source Pulse Rate 83 Pulse Rate [Lying] Pulse Rate [Sitting (for 1 minute prior to obtaining)] Pulse Rate [Standing (for 1 minute prior to obtaining)] Respiratory Rate Blood Pressure Blood Pressure [Lying] Blood Pressure [Sitting (for 1 minute prior to obtaining)] Blood Pressure [Standing (for 1 minute prior to obtaining)] Blood Pressure Mean Blood Pressure Mean [Lying] Blood Pressure Mean [Sitting (for 1 minute prior to obtaining)] Blood Pressure Mean [Standing (for 1 minute prior to obtaining)] Pulse Ox Oxygen Delivery Method MDM MDM MDM Narrative Medical decision making narrative: 69-year-old female with history of proximal atrial fibrillation not on anticoagulation, CAD on Plavix, HTN, hypothyroidism presents for evaluation of dizziness, generalized weakness, nausea. Differential diagnosis includes but is not limited to dehydration, UTI, viral illness, vertigo, intracranial abnormality, ACS. NS bolus, meclizine, Zofran ordered for symptoms. Laboratory workup ordered including CT head. EKG and chest x-ray reviewed, see below. CBC without leukocytosis or anemia. Coagulation panel unremarkable. BMP with baseline renal insufficiency of 1.42. No transaminitis. Lipase unremarkable. Magnesium unremarkable. TSH unremarkable. UA negative for UTI. CT head withou t any acute intracranial abnormality.CT head shows chronic changes but no acute changes. Troponin elevated at 64. Patient not having any chest pain. Will repeat troponin. On chart review, patient had a cardiac cath in December 2021 for with successful stent placement. Repeat troponin 72. Patient still denying any chest pain. During her stay in the emergency department she has become hypertensive with blood pressure being the highest of 218/90. Patient did not take her antihypertensives today. Source could be hypertensive emergency. Patient's blood pressure currently in the 180s. Will give hydralazine. On reevaluation, patient is no longer endorsing the room spinning however she still is having dizziness. She was a 2 assist with ambulation which is not her baseline. Patient will warrant admission for further workup of dizziness as well as monitoring of troponins. Patient confirmed understand the plan. Patient was discussed with the hospitalist service who accepted admission. EKG: Interpreted by me/EM physician: EKG shows normal sinus rhythm with T wave inversions in the anterior lateral leads. Heart rate 61. This is similar to previous EKG in December 2023 Diagnostic: Interpreted by me/EM physician: Chest x-ray without pneumonia, effusion, cardiomegaly, pneumothorax Impression: 1. Dizziness 2. Elevated troponin, suspect hypertensive emergency 3. CKD Lab Data Labs: Laboratory Results - last 24 hr 09/28/24 09/28/24 09/28/24 10:11 10:15 11:27 WBC 7.2 RBC 4.73 Hgb 12.0 Hct 39.4 MCV 83.3 MCH 25.4 L MCHC 30.5 L RDW Std Deviation 47.2 H RDW Coeff of Katherine 15.6 H Plt Count TNP MPV 9.7 Immature Gran % (Auto) 0.400 Neut % (Auto) 81.9 H Lymph % (Auto) 10.6 L [place] % (Auto) 5.7 Eos % (Auto) 1.0 Baso % (Auto) 0.4 Absolute Neuts (auto) 5.9 Absolute Lymphs (auto) 0.76 L Nucleated RBC % 0 Platelet Estimate SLT DEC PT Cancelled 13.5 INR Cancelled 1.0 APTT Cancelled 25.0 Sodium 139 Potassium 4.4 Chloride 112 H Carbon Dioxide 23.0 Anion Gap 5 BUN 16 Creatinine 1.42 H Estim Creat Clear Calc 32.88 Est GFR (MDRD) Af Amer 47 L Est GFR (MDRD) Non-Af 39 L BUN/Creatinine Ratio 11.3 Glucose 117 H Calcium 9.0 Magnesium 2.3 Total Bilirubin 0.20 Direct Bilirubin 0.06 AST 16 ALT 12 L Alkaline Phosphatase 57 Troponin I High Sens 64 H Total Protein 7.0 Albumin 3.7 Globulin 3.3 Lipase 46 TSH 2.650 Urine Color Urine Clarity Urine pH Ur Specific [place] Urine Protein Urine Glucose (UA) Urine Ketones Urine Occult Blood Urine Nitrite Urine Bilirubin Urine Urobilinogen Ur Leukocyte Esterase Urine RBC Urine WBC Ur Squamous Epith Cells Urine Bacteria Urine Mucus POC Glucose 105 09/28/24 09/28/24 12:13 12:31 WBC RBC Hgb Hct MCV MCH MCHC RDW Std Deviation RDW Coeff of Katherine Plt Count MPV Immature Gran % (Auto) Neut % (Auto) Lymph % (Auto) [place] % (Auto) Eos % (Auto) Baso % (Auto) Absolute Neuts (auto) Absolute Lymphs (auto) Nucleated RBC % Platelet Estimate PT INR APTT Sodium Potassium Chloride Carbon Dioxide Anion Gap BUN Creatinine Estim Creat Clear Calc Est GFR (MDRD) Af Amer Est GFR (MDRD) Non-Af BUN/Creatinine Ratio Glucose Calcium Magnesium Total Bilirubin Direct Bilirubin AST ALT Alkaline Phosphatase Troponin I High Sens 72 H Total Protein Albumin Globulin Lipase TSH Urine Color Yellow Urine Clarity Clear Urine pH 6.5 Ur Specific [place] 1.005 Urine Protein 15 H Urine Glucose (UA) Normal Urine Ketones Negative Urine Occult Blood Negative Urine Nitrite Negative Urine Bilirubin Negative Urine Urobilinogen Normal Ur Leukocyte Esterase 25 H Urine RBC 0 SEEN Urine WBC 0-5 SEEN Ur Squamous Epith Cells 0-5 SEEN Urine Bacteria 0 SEEN Urine Mucus 0 SEEN POC Glucose Radiography Diagnostic Testing: Clinical Impression(s) from Imaging Studies Chest X-Ray 09/28/24 10:15 IMPRESSION: No acute abnormality is seen. Electronically Signed: Skyler Mazariegos MD at 11:08 EST , Brain CT 09/28/24 10:33 IMPRESSION: Chronic involutional changes of the brain. Electronically Signed: Skyler Mazariegos MD at 11:16 EST , Discharge Plan Disposition Disposition: Acute Care Hospital [facility] Discharge Date/Time: 09/28/24 17:04
[2024-09-28 11:16] LABS: Differential Indicated SCAN CRITERIA MET; Platelet Estimate SLT DEC (ADEQ)
[2024-09-28] MEDS: Meclizine HCl 25 MG Tablet PO (11:30)
[2024-09-28] MEDS: Ondansetron 4 MG/2 ML Vial IV (11:30)
[2024-09-28] MEDS: 0.9% Normal Saline (1000mL) 1,000 ML 1000 ML IV (11:30)
[2024-09-28 11:43] LABS: Prothrombin Time (Protime)PT. 13.5 SECONDS (11.7-14.9)
[2024-09-28 11:48] LABS: AST(SGOT) 16 U/L (15-37); Alanine Aminotransfer ALT/SGPT 12 U/L (13-56); Albumin, Serum 3.7 g/dL (3.2-5.0); Alkaline Phosphatase 57 U/L (45-117); Bilirubin, Direct 0.06 mg/dL (0.00-0.30); Globulin 3.3 g/dL (2.2-4.2); Lipase 46 U/L (13-75); Magnesium 2.3 mg/dL (1.6-2.6); Troponin-I HS 64 pg/mL (3.0-54.0)
[2024-09-28 12:20] LABS: Bacteria 0 SEEN /hpf (None Seen); Mucous, Urine 0 SEEN /hpf (<or=2+); Red Blood Cells-Urine 0 SEEN /hpf (0-5)
[2024-09-28 12:22] LABS: Color, Urine Yellow (Yellow); Glucose, Dipstick Normal (Normal); Ketone-Dipstick Negative (Negative); Leukocyte Esterase-Dipstick 25 /ul (Negative); Nitrite-Dipstick Negative (Negative); Occult Blood-Urine Negative /ul (Negative); Protein-Dipstick 15 mg/dl (Negative); Specific Gravity, Urine 1.005 (1.002-1.030); Urine Bilirubin Dipstick Negative (Negative); Urine Clarity Clear (Clear); Urine Urobilinogen Normal (Normal); Urine pH 6.5 (5.0 - 8.0)
[2024-09-28 12:32] LABS: Squamous Epithelial Cells - UA 0-5 SEEN /hpf (5-10); White Blood Cells 0-5 SEEN /hpf (0-5)
[2024-09-28 13:07] LABS: Troponin-I HS 72 pg/mL (3.0-54.0)
[2024-09-28] MEDS: hydrALAZINE 20 MG/ML Vial 10 MG IV (14:17)
--- NOTE | 2024-09-28 15:02 | HP.PCM.HOS_ITS ---
HPI - General General Date of Admission: 09/28/24 Date of Service: 09/28/24 Chief Complaint: Vertigo HPI Narrative ADELIA ORDOÑEZ, is a 69-year-old female history of hypertension, hypothyroidism, paroxysmal atrial fibrillation, CAD presented to [facility] with general malaise, weakness, decreased appetite and fatigue as well as nausea and dizziness. She woke up this morning with some dizziness and felt that the room was spinning and also has generalized weakness and feeling like her body is heavy. In the ED workup was fairly benign aside from a blood pressure that went up to 218/90 and troponin that went from 64 up to 72. Patient with no chest pain but still with some residual vertiginous symptoms so hospitalist contacted for admission. Patient evaluated at bedside with son present. Patient reports that she has felt a little nauseous and weak and fatigued over the past 5 or 6 days but this morning she woke up and gripped the bed because she felt like the whole room was spinning. She had to get up to go to the bathroom and felt very dizzy still like the room was spinning, this severe dizziness lasted 30 to 40 minutes and has slowly been improving but is still present. In the ED they try to get her up and walk her but she was a to assist and was unstable on her feet. Patient denies current headache or changes in vision, no shortness of breath or chest pain, no bowel or bladder changes, no focal complaints or deficits, complaints are generalized weakness, fatigue, feeling like the room is spinning. [facility] Medical History Non-ST elevated myocardial infarction (non-STEMI) Paroxysmal atrial fibrillation PAC (premature atrial contraction) Nonrheumatic aortic (valve) stenosis with insufficiency Uterine cancer CKD (chronic kidney disease) Mixed hyperlipidemia Essential hypertension Hypothyroidism Thyroid nodule Premature ventricular contraction Atrial fibrillation Cardiac murmur Home Medications ?Medication ?Instructions ?Recorded ?Last Taken ?Type acetazolamide 250 mg tablet 250 mg PO DAILY for eyes 09/29/21 09/28/24 History levothyroxine 100 mcg tablet 100 mcg PO DAILY thyroid 09/29/21 09/27/24 History aspirin 81 mg tablet,delayed 81 mg PO DAILY heart 11/05/21 09/27/24 History release (Adult Aspirin Regimen) metoprolol succinate 50 mg 50 mg PO DAILY #90 tabs 12/30/23 09/27/24 Rx tablet,extended release 24 hr atorvastatin 80 mg tablet 80 mg PO QHS #90 tabs 03/28/24 09/27/24 Rx clopidogrel 75 mg tablet 75 mg PO DAILY #90 tabs 03/29/24 09/27/24 Rx losartan 50 mg tablet 50 mg PO BID 06/27/24 09/27/24 History Allergy/AdvReac Type Severity Reaction Status Date / Time bupropion (From Wellbutrin) AdvReac Severe Shakiness Verified 09/28/24 09:38 Family History Mother Myocardial infarction CHF (congestive heart failure) Kidney disease Hypertension Father Atrial fibrillation Aunt CHF (congestive heart failure) CAD (coronary artery disease) History of coronary artery bypass surgery Uncle CAD (coronary artery disease) History of coronary artery bypass surgery Sister CAD (coronary artery disease) Myocardial infarction Brother CAD (coronary artery disease) Myocardial infarction Brother CAD (coronary artery disease) Myocardial infarction Surgical History History of partial hysterectomy History of appendectomy History of bilateral cataract extraction Social History Smoking Status: Current every day smoker tobacco type: cigarettes alcohol intake: never substance use type: does not use caffeine: No ROS ROS Narrative General: Denies fever/chills but feels fatigued HENT: No stuffy nose or sore throat EYES: Denies changes in vision Resp: Denies cough, denies shortness of breath Cardiac: Denies chest pain GI: Denies abdominal pain has had some intermittent nausea with no vomiting : Denies changes in urination Extremity: Denies swelling MSK: Generalized weakness Neuro: Denies any numbness/tingling, positive for vertiginous symptoms Heme: Denies any bleeding or bruising Skin: Denies rashes Psychiatric: No complaints voiced Vital Signs Vital Signs Vital Signs: 09/28/24 09:39 09/28/24 10:08 09/28/24 10:38 Temperature 97.9 F Temperature Source Oral Pulse Rate 65 59 L Pulse Rate [Lying] Pulse Rate [Sitting (for 1 minute prior to obtaining)] Pulse Rate [Standing (for 1 minute prior to obtaining)] Respiratory Rate 16 15 Blood Pressure 182/79 H 207/97 H Blood Pressure [Lying] Blood Pressure [Sitting (for 1 minute prior to obtaining)] Blood Pressure [Standing (for 1 minute prior to obtaining)] Blood Pressure Mean 113 133 Blood Pressure Mean [Lying] Blood Pressure Mean [Sitting (for 1 minute prior to obtaining)] Blood Pressure Mean [Standing (for 1 minute prior to obtaining)] Pulse Ox 99 99 99 Oxygen Delivery Method Room Air Room Air 09/28/24 10:41 09/28/24 11:00 09/28/24 12:00 Temperature Temperature Source Pulse Rate 59 L 58 L Pulse Rate [Lying] 59 L Pulse Rate [Sitting (for 1 minute prior to obtaining)] 65 Pulse Rate [Standing (for 1 minute prior to obtaining)] 75 Respiratory Rate 16 16 Blood Pressure 181/77 H 186/77 H Blood Pressure [Lying] 218/90 H Blood Pressure [Sitting (for 1 minute prior to obtaining)] 190/86 H Blood Pressure [Standing (for 1 minute prior to obtaining)] 192/109 H Blood Pressure Mean 111 113 Blood Pressure Mean [Lying] 132 Blood Pressure Mean [Sitting (for 1 minute prior to obtaining)] 120 Blood Pressure Mean [Standing (for 1 minute prior to obtaining)] 136 Pulse Ox 95 98 Oxygen Delivery Method Room Air Room Air 09/28/24 13:00 09/28/24 14:00 09/28/24 14:38 Temperature 97.9 F Temperature Source Pulse Rate 64 63 63 Pulse Rate [Lying] Pulse Rate [Sitting (for 1 minute prior to obtaining)] Pulse Rate [Standing (for 1 minute prior to obtaining)] Respiratory Rate 15 16 16 Blood Pressure 180/46 H 175/61 H 175/61 H Blood Pressure [Lying] Blood Pressure [Sitting (for 1 minute prior to obtaining)] Blood Pressure [Standing (for 1 minute prior to obtaining)] Blood Pressure Mean 90 99 99 Blood Pressure Mean [Lying] Blood Pressure Mean [Sitting (for 1 minute prior to obtaining)] Blood Pressure Mean [Standing (for 1 minute prior to obtaining)] Pulse Ox 95 97 97 Oxygen Delivery Method Room Air Room Air Weight Weight: 71.6 kg Body Mass Index (BMI) 29.7 Physical Exam Narrative General: Alert, oriented, no apparent distress HEENT: Atraumatic, normocephalic Eyes: Anicteric, normal conjunctiva, extraocular movements intact, pupils equal Neck: Supple Respiratory: Wheezes right lobe greater than left lobe which she reports is chronic, normal respiratory effort Cardiovascular: Regular rate and rhythm GI: Soft, nontender, nondistended Extremities: No edema Musculoskeletal: Strength 5 out of 5 in right upper extremity, 5 out of 5 left upper extremity, 5 out of 5 right lower extremity, 5 out of 5 left lower extremity Neuro: No overt focal neurological deficits, cranial nerves II through XII intact, [id number] without significant difficulty bilaterally Skin: No rashes appreciated Psych: Cooperative Results Lab / Micro Data 09/28/24 10:15 09/28/24 10:15 Labs: Laboratory Results - last 24 hr 09/28/24 10:11: POC Glucose 105 09/28/24 10:15: WBC 7.2, RBC 4.73, Hgb 12.0, Hct 39.4, MCV 83.3, MCH 25.4 L, M CHC 30.5 L, RDW Std Deviation 47.2 H, RDW Coeff of Katherine 15.6 H, Plt Count TNP, MPV 9.7, Immature Gran % (Auto) 0.400, Neut % (Auto) 81.9 H, Lymph % (Auto) 10.6 L, [place] % (Auto) 5.7, Eos % (Auto) 1.0, Baso % (Auto) 0.4, Absolute Neuts (auto) 5.9, Absolute Lymphs (auto) 0.76 L, Nucleated RBC % 0, Platelet Estimate SLT DEC, PT Cancelled, INR Cancelled, APTT Cancelled, Sodium 139, Potassium 4.4, C hloride 112 H, Carbon Dioxide 23.0, Anion Gap 5, BUN 16, Creatinine 1.42 H, Estim Creat Clear Calc 32.88, Est GFR (MDRD) Af Amer 47 L, Est GFR (MDRD) Non-Af 39 L, BUN/Creatinine Ratio 11.3, Glucose 117 H, Calcium 9.0, Magnesium 2.3, Total Bilirubin 0.20, Direct Bilirubin 0.06, AST 16, ALT 12 L, Alkaline Phosphatase 57, Troponin I High Sens 64 H, Total Protein 7.0, Albumin 3.7, Globulin 3.3, Lipase 46, TSH 2.650 09/28/24 11:27: PT 13.5, INR 1.0, APTT 25.0 09/28/24 12:13: Urine Color Yellow, Urine Clarity Clear, Urine pH 6.5, Ur Specific [place] 1.005, Urine Protein 15 H, Urine Glucose (UA) Normal, Urine Ketones Negative, Urine Occult Blood Negative, Urine Nitrite Negative, Urine Bilirubin Negative, Urine Urobilinogen Normal, Ur Leukocyte Esterase 25 H, Urine RBC 0 SEEN, Urine WBC 0-5 SEEN, Ur Squamous Epith Cells 0-5 SEEN, Urine Bacteria 0 SEEN, Urine Mucus 0 SEEN 09/28/24 12:31: Troponin I High Sens 72 H Micro: Microbiology 09/28/24 10:41 Mucosa - Nose SARS-CoV-2, Influenza & RSV (PCR) - Final Imaging Radiology Impression Chest X-Ray 09/28/24 10:15 IMPRESSION: No acute abnormality is seen. Electronically Signed: Skyler Mazariegos MD at 11:08 EST , Brain CT 09/28/24 10:33 IMPRESSION: Chronic involutional changes of the brain. Electronically Signed: Skyler Mazariegos MD at 11:16 EST , Assessment & Plan Assessment/Plan (1) Hypertensive emergency: PLAN: Plan # Vertiginous symptoms that woke patient from sleep and have been improving but persistent -Admit to tele -CT head w/ chronic changes in ED -CTA head and neck ordered -MRI ordered -NIH q4hr -asa, statin -Echo w/ bubble study -PT/OT/Speech eval -Teleneuro consult placed -Hold BP medications to allow for permissive hypertension for 24 hours unless SBP greater than 220 or DBP greater than 120 or until stroke is ruled out # Hypertensive emergency -Suspect this is the cause of her elevated troponin -Patient's vertiginous symptoms/neurosymptoms could theoretically be from hypertensive emergency however she does still have some persistent symptoms despite blood pressure being improved in the ED and she reports that the symptoms are not consistent with -Will need to monitor blood pressure closely to allow for permissive hypertension but also given patient's elevated troponin with a significant hypertension we will need to proceed cautiously # Elevated troponin -First troponin 64 with second of 72 -Patient denies any chest pain or shortness of breath -Continue low-dose of her beta-latasha and DAPT -EKG with normal sinus rhythm heart rate of 61, did have some T wave inversions V2 through V5 unclear chronicity as I am unable to retrieve visual of EKG from December however interpretation did report some ST changes -Cycle troponins #Paroxysmal Atrial Fibrillation -Based on history, patient currently normal sinus rhythm -Patient on metoprolol, will decrease dose to allow some amount of permissive hypertension -Patient on dual antiplatelet not on anticoagulation # CKD stage IIIb -Appears to be at baseline -Avoid nephrotoxic agents -Daily BMPs # History of CAD -With stenting 12/28/2023, continue aspirin and Plavix # History of retinitis -Continue acetazolamide which patient has been on for 20 years #Tobacco use -Advise cessation -Nicotine replacement available if desired #Hypothyroidism -Continue Synthroid -Check TSH #DVT ppx: Lovenox subcu Ruthie Roman MD Charges/Coding Visit Charges Inpatient E&M: 42036 Init Hosp L2
--- NOTE | 2024-09-28 15:15 | ECHOD_ITS ---
Reason For Study: TIA/CVA Procedure This was a 2D Doppler, Color Flow transthoracic echocardiogram. Exam performed portable in patient room. Left Ventricle Mild concentric left ventricular hypertrophy. The estimated ejection fraction is 55-60 %. Right Ventricle Normal right ventricle. Normal systolic function. Atria Normal left atrium. Normal right atrium. Bubble contrast study is negative for PFO/ASD. Mitral Valve The mitral valve is structurally normal. No prolapse or stenosis seen. Trivial mitral valve insufficiency. Tricuspid Valve Normal tricuspid valve. No tricuspid valve insufficiency. Aortic Valve Moderate diffuse aortic valve calcification. Moderate aortic stenosis. Moderate aortic valve stenosis Aortic maximal pressure gradient is 44.2 mmHg Aortic mean pressure gradient is 28.2 mmHg. Aortic valve area calculated (1.1-1.3 cm2} Mild???moderate aortic valve insufficiency. Pulmonic Valve The pulmonic valve is not well visualized. Great Vessels Normal aortic root. Pericardium/Pleural No pericardial effusion. Medication Performed a rapid injection of agitated mix of 9 cc saline and 1cc air to assess for atrial septal defect. MMode/2D Measurements & Calculations LVIDd: 3.9 cm IVSd: 1.6 cm LVOT diam: 2.0 cm LVIDs: 2.4 cm LVPWd: 1.3 cm RVDd: 3.0 cm FS: 39.0 % LVOT area: 3.1 cm2 Ao root diam: 3.6 cm LAV(MOD-bp): 41.4 ml LVAd ap4: 21.7 cm2 LAV(MOD-bp) Indexed: 24.3 ml/m2 LVLd ap4: 7.0 cm LAV(MOD-sp2): 44.1 ml EDV(MOD-sp4): 55.1 ml LAV(MOD-sp4): 37.8 ml EDV(sp4-el): 56.8 ml LVAs ap4: 11.6 cm2 LVLs ap4: 5.8 cm ESV(MOD-sp4): 22.6 ml ESV(sp4-el): 19.6 ml EF(MOD-sp4): 59.0 % EF(sp4-el): 65.5 % SV(MOD-sp4): 32.5 ml SV(sp4-el): 37.2 ml LA A4 area: 15.0 cm2 SI(MOD-sp4): 19.1 ml/m2 LA dimension(2D): 3.9 cm RA A4 area: 10.9 cm2 TAPSE: 2.2 cm Time Measurements MV dec time: 0.33 sec Doppler Measurements & Calculations MV E max gera: 55.1 cm/sec Lat Peak E' Gera: 5.1 cm/sec Med Peak E' Gera: 6.3 cm/sec MV A max gera: 98.1 cm/sec E/E' lat: 10.8 E/E' med: 8.7 MV E/A: 0.56 MV V2 max: 130.6 cm/sec MV P1/2t max gera: 71.4 cm/sec Ao V2 max: 332.5 cm/sec MV max P.8 mmHg MV P1/2t: 118.4 msec Ao max P.2 mmHg MV V2 mean: 51.5 cm/sec MV dec slope: 176.6 cm/sec2 Ao V2 mean: 205.4 cm/sec MV mean P.4 mmHg MVA(P1/2t): 1.9 cm2 Ao mean P.2 mmHg MV V2 VTI: 34.3 cm Ao V2 VTI: 60.1 cm MVA(VTI): 2.3 cm2 AV (velocity ratio): 0.43 POLO(I,D): 1.3 cm2 POLO(V,D): 1.1 cm2 AI max gera: 453.0 cm/sec LV V1 max: 116.2 cm/sec SV(LVOT): 78.6 ml AI max P.1 mmHg LV V1 max P.4 mmHg LV V1 mean P.8 mmHg AI dec slope: 154.9 cm/sec2 LV V1 mean: 78.8 cm/sec AI P1/2t: 856.8 msec LV V1 VTI: 25.7 cm PA V2 max: 86.2 cm/sec ECHO/Echo Complete Interpretation Summary The estimated ejection fraction is 60-65% Normal LV systolic function Moderate aortic valve stenosis Aortic maximal pressure gradient is 44.2 mmHg Aortic mean pressure gradient is 28.2 mmHg. Aortic valve area calculated (1.1-1.3 cm2} Mild???--moderate aortic valve insufficiency In comparison to previous echocardiogram aortic valve is mild to moderate aorti c stenosis. LV systolic function is similar Ordering Physician: Ruthie Roman Performed By: Pramod Meza RCS
--- NOTE | 2024-09-28 15:15 | CT_ITS ---
STUDY: CTA HEAD AND NECK WITH CONTRAST REASON FOR EXAM: Female, 69 years old. Neuro deficit, acute, stroke suspected RADIATION DOSAGE (If Supplied By Facility): CTDIvol = ( 23.97 ) mGy, DLP = ( 726.14 ) mGycm TECHNIQUE: CT angiography was performed with a multi-detector CT scanner. Data acquisition was obtained from the skull base through the vertex following intravenous administration of IV 100mL Isovue-370. MIP images were reconstructed from the axial data set. Post-processing of the angiographic images was performed, with multiplanar reformation and 3D reconstruction. Individualized dose optimization techniques were used for this CT. COMPARISON: No relevant priors. FINDINGS: Normal bilateral petrous carotid arteries. Normal right cavernous carotid artery with a normal supraclinoid bifurcation. Normal left cavernous carotid artery with a normal supraclinoid bifurcation. Normal right A1 segments of the anterior cerebral artery. Normal left A1 segments of the anterior cerebral artery. Anterior communicating artery not visualized consistent with normal variant Normal bilateral A2 segments of the anterior cerebral arteries. Normal right M1 and M2 segments of the middle cerebral arteries, with a normal M1 bifurcation. Normal left M1 and M2 segments of the middle cerebral arteries, with a normal M1 bifurcation. Posterior communicating arteries are not visualized consistent with normal variant). Normal bilateral vertebral arteries. Normal basilar artery with a normal basilar bifurcation. The visualized bilateral superior cerebellar (SCA) arteries are normal. Normal bilateral P1, P2 and visualized P3 segments of the posterior cerebral arteries. There is no demonstrated aneurysm of the [place]. There is no demonstrated abnormality of the visualized brain. AORTIC ARCH: Normal visualized aortic arch. Normal origins of the brachiocephalic, left common carotid, and left subclavian arteries. RIGHT CAROTID ARTERIES: Normal right common carotid artery (CCA). Normal right common carotid bulb. Normal origin of the right internal carotid (ICA) artery without a hemodynamically significant stenosis. Normal visualized cervical portion of the right internal carotid artery. Normal origin of the right external carotid artery (ECA). LEFT CAROTID ARTERIES: Normal left common carotid artery (CCA). Normal left common carotid bulb. Normal origin of the left internal carotid (ICA) artery without a hemodynamically significant stenosis. Normal visualized cervical portion of the left internal carotid artery. Normal origin of the left external carotid artery (ECA). VERTEBRAL ARTERIES: Normal bilateral vertebral arteries. CT/CTA Head AND Neck W/ Contrast IMPRESSION: Normal CTA Head and neck with contrast. Electronically Signed: Jose Elias Mcdonald MD at 16:11 EST ,
[2024-09-28] MEDS: Metoprolol(XL)Succ 25 MG Tablet PO (19:06)
[2024-09-28] MEDS: Aspirin 81 MG TAB.CHEW PO (19:06)
[2024-09-28 19:30] LABS: Troponin-I HS 76 pg/mL (3.0-54.0)
[2024-09-28] MEDS: Atorvastatin Calcium 80 MG Tablet PO (21:32)
[2024-09-29 02:00] VITALS: BP 120/90; PULSE 65; RESP 18; TEMP 35.9; O2SAT 94
[2024-09-29 06:00] VITALS: BP 157/88; PULSE 62; RESP 18; TEMP 36.3; O2SAT 96
[2024-09-29] MEDS: Levothyroxine 100 MCG Tablet PO (06:11)
[2024-09-29 06:42] LABS: Absolute Lymphocyte Count 1.51 X10^3/uL (0.83-4.51); Absolute Neutrophil Count 3.5 X10^3/uL (2.0-7.7); Basophil# 0.04 X10^3/uL; Basophil% 0.7 % (0-1); Eosinophil# 0.22 X10^3/uL; Eosinophils% 3.7 % (0-5); Hematocrit 37.3 % (37-47); Hemoglobin 11.4 g/dL (12.0-15.0); Lymphocyte # 1.51 X10^3/ul (0.83-4.51); Lymphocyte % 25.7 % (19-41); Mean Corp Hgb Conc 30.6 g/dL (32-36); Mean Corpuscular Hgb 25.6 pg (27.0-32.0); Mean Corpuscular Volume 83.8 fL (81-99); Mean Platelet Vol. 9.3 fl (6.2-12.0); Monocyte# 0.59 X10^3/uL; NRBC Flagged by Analyzer 0 % (0-5); Neutrophil % 59.6 % (47-70); Platelet Count 151 K/mm3 (150-450); RBC Distribution Width CV 15.8 % (11.6-14.6); RBC Distribution Width SD 47.7 fl (35.1-43.9); Red Blood Count 4.45 M/mm3 (4.2-5.4); White Blood Count 5.9 K/mm3 (4.4-11.0)
[2024-09-29 07:24] LABS: Anion Gap 6 (5-15); BUN 16 mg/dL (7-18); BUN/Creat Ratio 10.7 RATIO (10-20); Calcium,Total 8.7 mg/dL (8.5-10.1); Chloride 115 mmol/L (98-107); Cholesterol 115 mg/dL (200); Creatinine, Serum 1.49 mg/dL (0.55-1.02); EST Glomerular Filtration Rate 37 mL/min (>60); Est Glom Filt Rate - Afr Amer 44 mL/min (>60); Estimated Creatinine Clearance 31.34 ml/min; Glucose 95 mg/dL (74-106); High Density Lipoprotein 33 mg/dL; Potassium 3.9 mmol/L (3.5-5.1); Sodium Level 142 mmol/L (136-145); Triglycerides 166 mg/dL; Very Low Density Lipoprotein 33 mg/dL (5-40)
[2024-09-29 08:44] VITALS: BP 139/85; PULSE 62; RESP 18; TEMP 36.2; O2SAT 94
[2024-09-29] MEDS: Enoxaparin 40 MG/0.4 ML Syringe SC (08:47)
[2024-09-29] MEDS: AcetaZOLAMIDE 250 MG Tablet PO (08:49)
[2024-09-29] MEDS: Aspirin 81 MG TAB.CHEW PO (08:49)
[2024-09-29] MEDS: Clopidogrel Bisulfate 75 MG Tablet PO (08:49)
[2024-09-29 09:01] VITALS: BMI 29.8
[2024-09-29] MEDS: ALPRAZolam 0.5 MG Tablet PO (09:27)
--- NOTE | 2024-09-29 10:01 | CASEMGMT ---
EDUARDO LEYVA Assessment: Face to Face with pt for initial transition planning/care coordination assessment. RN GORDON introduced self and role at [facility], pt voices understanding and consents to assessment. Pt is A&O x4 and answers all questions appropriately at this time. Pt sitting up in bed with at bedside, pt agreeable to discussing discharge planning Care providers, pharmacy, and demographics verified/updated. 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 Lives in a 1 story with 2 steps to enter. ADLs: Pt reports I with ADLs and IADLs. Transportation: Pt drives self and denies concerns with transportation. DME: [employer] HHC/SNF: Denies Hx of. Pt states no concerns with going home at time of dc. Pt states no further concerns/needs. CM to follow. Advised pt to ask CM if any further question/concerns/needs arise, voices understanding. Pt Goal: Home Plan: Home, follow plan of care for safe DC. Jaleel CLARK CM
--- NOTE | 2024-09-29 10:59 | CASEMGMT ---
Social Work Pt completed PHQ-9 w/SW. Pt shows some indications of depression around loss of energy, trouble with sleep, having little pleasure or interest in doing things, nearly all the time. However, pt attributes all of the symptoms to having COVID two times and having a heart attack. Pt has had these symptoms for two years. Pt denies feeling down or depressed, but states she gets frustrated with her lack of sleep and low energy. Support offered. No resources needed at this time. VICENTE Gomez
--- NOTE | 2024-09-29 11:13 | STROKE.CONS ---
Assessment and Plan: Stroke Assessment/Plan ADELIA ORDOÑEZ is a 69 F with a history of Retinitis Pigmentosa (on Acetazolamide) HTN, HLD, pAF not on AC, CAD s/p stent (01/14 on DAPT), who presents for evaluation of acute onset vertigo, generalized weakness and nausea with elevated blood pressure to 218/90, with now improved symptoms and blood pressure. Neurological examination shows no neurological deficit. NIHSS 0. Neuroimaging shows CTH without acuity and CTA without proximal LVO or high grade critical flow limiting stenosis. MRI brain is pending. Acute Vertigo, improving - Agree with MRI brain to rule out central etiology, particularly given no positional component at presentation and risk factors including pAF not on AC - TTE/LDL/A1C, PT/OT evaluation - Permissive HTN < 220 x 24 hours has concluded, agree with gradual normotension and continue goal of normotension - Vascular risk factor modification including glycemic control, LDL < 70 - If concern for acute ischemia on imaging, would recommend discussion with cardiology regarding anticoagulation for secondary stroke risk reduction. At this time the patient is on DAPT post stent by cardiology given reported insignificant AF burden, but if there is concern for acute ischemia, would recommend determination of safety per cardiology post stent placement earlier this year and discussion of one AP agent and one AC agent for cardiovascular and cerebrovascular optimization rather than triple therapy. 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 HPI Consult Data Date of Consult: 09/29/24 HPI Narrative HPI Narrative: ADELIA ORDOÑEZ is a 69 F with a history of HTN, HLD, pAF not on AC, CAD s/p stent (01/14 on DAPT), who presents for evaluation of acute onset vertigo, generalized weakness and nausea with elevated blood pressure to 218/90, with now improved symptoms and blood pressure. The patient reports she was LKW 09/28 at 0230 am when she went to bed. She says she woke out of bed with intense spinning sensation that she had to grab onto something for stability. She stated when she went to get up it was still present and her symptoms persisted for about 3- 4 hours until she got to the ED and then began to improve after she was given zofran and antivert. She reports nausea initially, but does not report headache, vision changes, speech changes, focal numbness/weakness, hearing loss. She has reported ongoing fatigue and poor po intake of recent. She reports SBP 130-140s at home, she checks every other day. [facility] Medical History Non-ST elevated myocardial infarction (non-STEMI) Paroxysmal atrial fibrillation PAC (premature atrial contraction) Nonrheumatic aortic (valve) stenosis with insufficiency Uterine cancer CKD (chronic kidney disease) Mixed hyperlipidemia Essential hypertension Hypothyroidism Thyroid nodule Premature ventricular contraction Atrial fibrillation Cardiac murmur Home Medications ?Medication ?Instructions ?Recorded ?Last Taken ?Type acetazolamide 250 mg tablet 250 mg PO DAILY for eyes 09/29/21 09/28/24 History levothyroxine 100 mcg tablet 100 mcg PO DAILY thyroid 09/29/21 09/27/24 History aspirin 81 mg tablet,delayed 81 mg PO DAILY heart 11/05/21 09/27/24 History release (Adult Aspirin Regimen) metoprolol succinate 50 mg 50 mg PO DAILY #90 tabs 12/30/23 09/27/24 Rx tablet,extended release 24 hr atorvastatin 80 mg tablet 80 mg PO QHS #90 tabs 03/28/24 09/27/24 Rx clopidogrel 75 mg tablet 75 mg PO DAILY #90 tabs 03/29/24 09/27/24 Rx losartan 50 mg tablet 50 mg PO BID 06/27/24 09/27/24 History Allergy/AdvReac Type Severity Reaction Status Date / Time bupropion (From Wellbutrin) AdvReac Severe Shakiness Verified 09/28/24 09:38 Family History Mother CHF (congestive heart failure) Kidney disease Myocardial infarction Hypertension Father No problems noted. Aunt CAD (coronary artery disease) CHF (congestive heart failure) History of coronary artery bypass surgery Uncle CAD (coronary artery disease) History of coronary artery bypass surgery Diabetes Sister CAD (coronary artery disease) Myocardial infarction Brother CAD (coronary artery disease) Myocardial infarction Diabetes Brother CAD (coronary artery disease) Myocardial infarction Grandmother Diabetes Surgical History History of partial hysterectomy History of appendectomy History of bilateral cataract extraction Social History Smoking Status: Current every day smoker tobacco type: cigarettes alcohol intake: never substance use type: does not use caffeine: No Vital Signs Vital Signs Vital Signs: 09/28/24 12:00 09/28/24 13:00 09/28/24 14:00 Temperature Temperature Source Pulse Rate 58 L 64 63 Pulse Strength Respiratory Rate 16 15 16 Respiratory Effort Respiratory Depth Respiratory Pattern Blood Pressure 186/77 H 180/46 H 175/61 H Blood Pressure Mean 113 90 99 Blood Pressure Source Blood Pressure Position Blood Pressure Location Pulse Ox 98 95 97 Oxygen Delivery Method Room Air Room Air Room Air 09/28/24 14:38 09/28/24 15:00 09/28/24 16:00 Temperature 97.9 F Temperature Source Pulse Rate 63 83 82 Pulse Strength Respiratory Rate 16 18 Respiratory Effort Respiratory Depth Respiratory Pattern Blood Pressure 175/61 H 197/107 H Blood Pressure Mean 99 137 Blood Pressure Source Blood Pressure Position Blood Pressure Location Pulse Ox 97 Oxygen Delivery Method 09/28/24 18:37 09/28/24 19:06 09/28/24 22:00 Temperature 97.5 F L Temperature Source Oral Pulse Rate 73 73 Pulse Strength Normal (2+) Respiratory Rate 16 Respiratory Effort Respiratory Depth Respiratory Pattern Blood Pressure 163/91 H 163/91 H Blood Pressure Mean 115 Blood Pressure Source Monitor Blood Pressure Position Semi-Fowlers Blood Pressure Location Right Arm Pulse Ox 97 Oxygen Delivery Method Room Air 09/28/24 22:00 09/28/24 22:00 09/28/24 22:36 Temperature 97.2 F L Temperature Source Temporal Pulse Rate 72 Pulse Strength Respiratory Rate 18 Respiratory Effort Normal Non-Labored Respiratory Depth Normal Respiratory Pattern Normal Blood Pressure 177/92 H Blood Pressure Mean 120 Blood Pressure Source Monitor Blood Pressure Position Semi-Fowlers Blood Pressure Location Right Arm Pulse Ox 96 95 Oxygen Delivery Method Room Air Room Air Room Air 09/29/24 02:00 09/29/24 06:00 09/29/24 07:00 Temperature 96.7 F L 97.3 F L Temperature Source Temporal Temporal Pulse Rate 65 62 Pulse Strength Respiratory Rate 18 18 Respiratory Effort Normal Non-Labored Respiratory Depth Normal Respiratory Pattern Normal Blood Pressure 120/90 H 157/88 H Blood Pressure Mean 100 111 Blood Pressure Source Monitor Monitor Blood Pressure Position Semi-Fowlers Semi-Fowlers Blood Pressure Location Right Arm Right Arm Pulse Ox 94 96 Oxygen Delivery Method Room Air Room Air Room Air 09/29/24 07:51 09/29/24 08:26 09/29/24 08:44 Temperature 97.2 F L Temperature Source Temporal Pulse Rate 62 Pulse Strength Normal (2+) Respiratory Rate 18 Respiratory Effort Respiratory Depth Respiratory Pattern Blood Pressure 139/85 H Blood Pressure Mean 103 Blood Pressure Source Monitor Blood Pressure Position Semi-Fowlers Blood Pressure Location Right Arm Pulse Ox 94 Oxygen Delivery Method Room Air Room Air Weight Weight: 71.6 kg Body Mass Index (BMI) 29.8 EEG Results Procedure Details EEG Procedure Details: ADELIA ORDOÑEZ is a 69 year old F with a past medical history of , who presents for evaluation of Electroencephalogram on DATE at TIME NIHSS NIHSS Nursing Documentation NIHSS Nursing Documentation: NIHSS: Ischemic Stroke/TIA Start: 09/28/24 18:27 Text: For PCU Patients: NIH and Neuro Check every 4 Status: Active hours, PRN and with change in RN caregiver. Freq: [id number] Protocol: Activity Type Activity Date Activity User E-sign Co-sign Detail Recorded Client Recorded Date Recorded By Document 09/29/24 09:00 GREGG [id number] 09/29/24 09:00 KS 09/29/24 09:00 NIH Stroke Scale [NIHSS] A score of 0 is normal or asymptomatic . Total possible score is 42. Inpatient: RN or Physician to activate a stroke alert for onset of new stroke symptoms or with NIHSS increase >/= 3 points. Following change in neurological status, NIHSS will be performed per physician order or more frequently PRN. -1a. Level of Consciousness Alert; keenly responsive -1b. LOC Questions Answers BOTH questions correctly. -1c. LOC Commands Performs both tasks correctly . -2. Best Gaze Normal -3. Visual Partial hemianopia -4. Facial Palsy Normal symmetrical movements -5a. Left Arm No drift; arm holds 90 (or 45 ) degrees for full 10 seconds -5b. Right Arm No drift; arm holds 90 (or 45 ) degrees for full 10 seconds -6a. Left Leg No drift; leg holds 30-degree position for full 5 seconds -6b. Right Leg No drift; leg holds 30-degree position for full 5 seconds -7. Limb Ataxia Absent -8. Sensory Normal; no sensory loss -9. Best Language No aphasia; normal -10. Dysarthria Normal -11. Extinction and Inattention No abnormality -Total 1 Query Text:A score of 0 is normal or asymptomatic. Total possible score is 42 . ED: Notify Physician for NIHSS increase by > / = 3 points. Inpatient: RN or Physician to activate a stroke alert for NIHSS increase of > / = 3 points. Coma Scale [Assess] -Eye Opening Spontaneous -Motor Obeys Commands -Verbal Oriented [Total] -Coma Scale Total 15 Physical Exam Neuro Neuro Narrative: Alert and oriented Following commands EOMI, Face symmetric, no nystagmus, tongue midline, shoulder shrug intact BLUE and BLLE held against gravity without drift Sensation intact to light touch No dysmetria or ataxia with finger to nose testing or heal to aguilar testing NIHSS Initial: 1a Level of Consciousness: 0 1b LOC Questions (Score 2 if aphasic/stupor): 0 1c LOC Commands (Only score 1st attempt): 0 2 Best Gaze (If aphasic, use reflexive mvmts.): 0 3 Visual: 0 4 Facial Palsy: 0 5 Motor Arm Right (UN = amputation/fusion): 0 5 Motor Arm Left: 0 6 Motor Leg Right: 0 6 Motor Leg Left: 0 7 Limb ataxia (Only + if out of proportion): 0 8 Sensory (Aphasia/stupor=0 or 1, coma=2): 0 9 Best Language: 0 10 Dysarthria (mute, coma=2, intubated=UN): 0 11 Extinction and Inattention (only scored if +): 0 Total Score: 0 Lab / Micro Data 09/29/24 05:53 09/29/24 05:53 Labs: Laboratory Results - last 24 hr 09/28/24 10:15: WBC 7.2, RBC 4.73, Hgb 12.0, Hct 39.4, MCV 83.3, MCH 25.4 L, MCHC 30.5 L, RDW Std Deviation 47.2 H, RDW Coeff of Katherine 15.6 H, Plt Count TNP, MPV 9.7, Immature Gran % (Auto) 0.400, Neut % (Auto) 81.9 H, Lymph % (Auto) 10.6 L, [place] % (Auto) 5.7, Eos % (Auto) 1.0, Baso % (Auto) 0.4, Absolute Neuts (auto) 5.9, Absolute Lymphs (auto) 0.76 L, Nucleated RBC % 0, Platelet Estimate SLT DEC, Magnesium 2.3, Total Bilirubin 0.20, Direct Bilirubin 0.06, AST 16, ALT 12 L, Alkaline Phosphatase 57, Troponin I High Sens 64 H, Total Protein 7.0, Albumin 3.7, Globulin 3.3, Lipase 46, TSH 2.650 09/28/24 11:27: PT 13.5, INR 1.0, APTT 25.0 09/28/24 12:13: Urine Color Yellow, Urine Clarity Clear, Urine pH 6.5, Ur Specific [place] 1.005, Urine Protein 15 H, Urine Glucose (UA) Normal, Urine Ketones Negative, Urine Occult Blood Negative, Urine Nitrite Negative, Urine Bilirubin Negative, Urine Urobilinogen Normal, Ur Leukocyte Esterase 25 H, Urine RBC 0 SEEN, Urine WBC 0-5 SEEN, Ur Squamous Epith Cells 0-5 SEEN, Urine Bacteria 0 SEEN, Urine Mucus 0 SEEN 09/28/24 12:31: Troponin I High Sens 72 H 09/28/24 18:55: Troponin I High Sens 76 H 09/29/24 05:53: WBC 5.9, RBC 4.45, Hgb 11.4 L, Hct 37.3, MCV 83.8, MCH 25.6 L, MCHC 30.6 L, RDW Std Deviation 47.7 H, RDW Coeff of Katherine 15.8 H, Plt Count 151, MPV 9.3, Immature Gran % (Auto) 0.300, Neut % (Auto) 59.6, Lymph % (Auto) 25.7, [place] % (Auto) 10.0, Eos % (Auto) 3.7, Baso % (Auto) 0.7, Absolute Neuts (auto) 3.5, Absolute Lymphs (auto) 1.51, Nucleated RBC % 0, Sodium 142, Potassium 3.9, Chloride 115 H, Carbon Dioxide 21.0, Anion Gap 6, BUN 16, Creatinine 1.49 H, Estim Creat Clear Calc 31.34, Est GFR (MDRD) Af Amer 44 L, Est GFR (MDRD) Non-Af 37 L, BUN/Creatinine Ratio 10.7, Glucose 95, Calcium 8.7, Triglycerides 166, Cholesterol 115, LDL Cholesterol 49, VLDL Cholesterol 33, HDL Cholesterol 33 L, TSH 2.300 Micro: Microbiology 09/28/24 10:41 Mucosa - Nose SARS-CoV-2, Influenza & RSV (PCR) - Final Imaging Radiology Impression Brain CT 09/28/24 10:33 IMPRESSION: Chronic involutional changes of the brain. Electronically Signed: Skyler Mazariegos MD at 11:16 EST , Head/Neck CTA 09/28/24 15:15 IMPRESSION: Normal CTA Head and neck with contrast. Electronically Signed: Jose Elias Mcdonald MD at 16:11 EST , Active Medications Active Medications Active Medications: Current Medications Generic Name Dose Route Start Last Admin Trade Name Freq PRN Reason Stop Dose Admin Acetaminophen 650 mg 09/28/24 18:27 Acetaminophen 325 Mg Tablet PO Q6H PRN PRN Pain 1-10 Or Fever >100.7 Acetazolamide 250 mg 09/29/24 10:00 09/29/24 08:49 Acetazolamide 250 Mg Tablet PO 250 mg DAILY JOSE Administration Albuterol Sulfate 2.5 mg 09/28/24 18:27 Albuterol 2.5 Mg/3 Ml Vial.Neb. INHALATION Q2H PRN PRN SOB &/OR WHEEZING Aspirin 81 mg 09/29/24 08:00 09/29/24 08:49 Aspirin 81 Mg Tab.Chew PO 81 mg BREAKFAST JOSE Administration Atorvastatin Calcium 80 mg 09/28/24 22:00 09/28/24 21:32 Atorvastatin Calcium 80 Mg Tablet PO 80 mg QHS JOSE Administration Clopidogrel Bisulfate 75 mg 09/29/24 10:00 09/29/24 08:49 Clopidogrel Bisulfate 75 Mg Tablet PO 75 mg DAILY JOSE Administration Enoxaparin Sodium 40 mg 09/29/24 10:00 09/29/24 08:47 Enoxaparin 40 Mg/0.4 Ml Syringe SC 40 mg DAILY JOSE Administration Hydralazine HCl 5 mg 09/28/24 18:27 Hydralazine 20 Mg/Ml Vial IV 09/29/24 18:27 Q30M PRN maintain BP parameters with HR <60 Labetalol HCl 10 - 20 mg 09/28/24 18:27 Labetalol (Prefilled) 20 Mg/4 Ml Vial IV 09/29/24 18:27 Q10M PRN PRN maintain BP parameters with HR >/=60 Levothyroxine Sodium 100 mcg 09/29/24 06:00 09/29/24 06:11 Levothyroxine 100 Mcg Tablet PO 100 mcg DAILY@0600 JOSE Administration Melatonin 3 mg 09/28/24 18:27 Melatonin 3 Mg Tablet PO QHS PRN PRN INSOMNIA Metoprolol Succinate 25 mg 09/28/24 18:27 09/29/24 08:50 Metoprolol(Xl)Succ 25 Mg Tablet PO Not Given DAILY [facility] Protocol Ondansetron HCl 4 mg 09/28/24 18:27 Ondansetron 4 Mg/2 Ml Vial IV Q8H PRN PRN NAUSEA/VOMITING Senna/Docusate Sodium 2 tablet 09/28/24 18:27 Senna/Docusate Sodium 1 Tablet PO BID PRN PRN Constipation Sodium Chloride 10 - 40 ml 09/28/24 18:30 0.9% Saline Lock 10 Ml Syringe IV UD PRN SALINE FLUSH
[2024-09-29] MEDS: LORazepam 2 MG/ML Syringe 0.5 MG IV (11:27)
[2024-09-29 12:32] VITALS: BP 154/85; PULSE 67; RESP 18; TEMP 36.2; O2SAT 94
--- NOTE | 2024-09-29 15:15 | MRI_ITS ---
HISTORY: cva r/o, vertigo. TECHNIQUE: Multiplanar and multisequence MR images of the brain were obtained without contrast. 283 images. COMPARISON: CT prior day. FINDINGS: BRAIN PARENCHYMA: 5 mm focus of restricted diffusion in the left cerebellar vermis. Mild foci of increased T2 FLAIR signal in the bilateral frontal white matter. No acute intracranial hemorrhage identified. CSF SPACES: Cerebral ventricles, cortical sulci, and other extra-axial CSF spaces within normal limits in size for age with a partially empty sella configuration noted. No significant midline shift or other mass effect.No extra-axial fluid collection. VASCULAR SYSTEM: Major intracranial flow voids are maintained. PARANASAL SINUSES AND MASTOID AIR CELLS: Trace fluid in the left mastoid air cells. Small nasopharyngeal cyst. ORBITS: Bilateral lens resections. MRI/Brain without Contrast IMPRESSION: Small acute left superior cerebellar infarct. Mild chronic white matter changes. Electronically Signed: Sheila Barron MD at 13:22 EST ,
--- NOTE | 2024-09-29 16:01 | DCINST_ITS ---
Discharge Instructions Diet Discharge Diet: No restrictions DC O2, CPAP, BIPAP needs Additional Home O2 Discharge instructions: No Dressing / Incision Discharge Activity: No Restrictions Follow Up Care Test Results: Test results from this visit will be discussed in further detail at your follow- up appointment, if applicable. Discharge Plan Admission Admit Date/Time: 09/28/24 15:02 Primary Reason for Your Visit: Dizziness and fatigue Attending Provider: Luis Antonio Gonzáles Primary Care Provider: Mandie Aldana Consulting Providers: Jeffrey Mukherjee; Ewa Blancas; Elodia Jacobson; Samara Llanes; Zhanna Bowen; Giuliano Roach; Yumiko Simon; Varghese Seo; Torin Krishna; Alonzo Donis; Luz Sousa; Bridger Mann; Therese Uriostegui; Lin Whittington; Reba Mendoza; Gurinder Juan; Julieta Albrecht; Noé Vora; Melita Haynes; Tanvir Marrero; Ruthie Roman Instructions Additional Instructions / Restrictions: Continue home medications as normal. If your blood pressure continues to run high at home, contact your primary care doctor or contingents supervisor to discuss adding additional medications for better blood pressure control. Discharge Orders/Prescriptions Prescriptions: Continued acetazolamide 250 mg tablet 250 mg PO DAILY levothyroxine 100 mcg tablet 100 mcg PO DAILY losartan 50 mg tablet 50 mg PO BID metoprolol succinate 50 mg Tablet Extended Release 24 Hr 50 mg PO DAILY Qty: 90 0RF aspirin [Adult Aspirin Regimen] 81 mg tablet,delayed release (DR/EC) 81 mg PO DAILY atorvastatin 80 mg tablet 80 mg PO QHS Qty: 90 3RF clopidogrel 75 mg tablet 75 mg PO DAILY Qty: 90 3RF Referrals / Follow Up: Mandie Aldana PA [Primary Care Provider] - Disposition Disposition (needs filled in before D/C Order can be placed): Home, Self Care
--- NOTE | 2024-09-29 16:07 | PCM.DC.SUM ---
Providers Date of Admission: 09/28/24 Date of Discharge: 09/29/24 Primary Care Physician: SUNITA Haynes Consultations 09/28/24 18:27 Consult: Tele-Neurology Routine Consulting Provider: [facility] Reason for Consult: Acute Ischemic Stroke/TIA EMERGENT Consult: No MD Notified: Yes Date Notified: 09/28/24 Time Notified: 22:13 Method of Notification: Answering Service Nursing Unit Staff Notify [facility] of Tele-Neurology Consult: Yes Reason For Visit: HTN EMERGENCY AND CVA R/O Diagnosis Discharge Diagnosis (1) Hypertensive emergency: Status: Acute Code(s): I16.1 - Hypertensive emergency Medications at Discharge Home Medications acetazolamide 250 mg tablet 250 mg PO DAILY for eyes 09/29/21 levothyroxine 100 mcg tablet 100 mcg PO DAILY thyroid 09/29/21 aspirin 81 mg tablet,delayed release (Adult Aspirin Regimen) 81 mg PO DAILY heart 11/05/21 metoprolol succinate 50 mg tablet,extended release 24 hr 50 mg PO DAILY blood pressure #90 tabs 12/30/23 atorvastatin 80 mg tablet 80 mg PO QHS cholesterol #90 tabs 03/28/24 clopidogrel 75 mg tablet 75 mg PO DAILY anti platelet #90 tabs 03/29/24 losartan 50 mg tablet 50 mg PO BID blood pressure 06/27/24 Hospital Course Operations None Procedures EKG, Transthoracic echo and - (MRI brain, CTA head/neck, CT brain, chest x-ray) Summary of Care Provided Minutes Spent on Discharge: 35 Hospital Course: Patient is a 69-year-old female who presented [facility] ED on 09/28/2024 with dizziness and weakness. Short hospital course as noted below. Patient discharged home with no therapy needs in stable condition on 09/29. . Acute CVA ? Neurology followed. MRI brain was positive for a small acute left superior cerebellar infarct. Echo unremarkable. Lipid panel with total cholesterol 115, LDL 49. TSH normal. Notably in normal sinus rhythm on telemetry with no runs of A-fib during hospitalization. Discussed with neurology and given deep nature and single region with < 15 mm in size, this favors a small vessel disease etiology as opposed to embolic etiology. However, recommended that patient follow-up with cardiology to discuss her A-fib further and possible need for anticoagulation in the future. For now, okay to continue home aspirin and Plavix. Worked with therapy on day of discharge and did very well, no residual deficits. Stable for discharge home with no therapy needs. 2. Hypertensive emergency ? Presented with very elevated blood pressures in the 200s with elevated troponin as noted below. Permissive hypertension was allowed on admission in setting of CVA. Blood pressure improved with reinstitution of home blood pressure medications on day of discharge. Continue home losartan and Toprol. 3. Elevated troponin ? Troponin trend 64 > 72. EKG with no acute changes. No chest pain or shortness of breath. Presumed secondary to hypertensive emergency as noted above. No further treatment needed. 4. Paroxysmal A-fib ? Follows with [facility], last visit in June. Notably anticoagulation has been discussed with her in the past but she was resistant to this. Remained in normal sinus rhythm on telemetry during this admission. Continue home Toprol. Continue outpatient follow-up with cardiology. Chronic medical conditions: ? History of CAD with stenting: Continue home aspirin, Plavix, statin, losartan and Toprol. ? CKD stage IIIb: Creatinine stable at baseline 1.4 during hospitalization. ? Hypothyroidism: TSH normal. Continue home Synthroid. ? History of rhinitis: Continue home acetazolamide which she has been on for about 20 years. ? Tobacco use: Encouraged cessation on discharge. Total clinical time spent by myself addressing the patient's medical issues, reviewing all the data, and collaborating with patient's care team: 35 minutes. Physical Exam Const alert, oriented x3, no apparent distress and average body habitus General Appearance: cooperative and comfortable HEENT normocephalic, head/scalp atraumatic, hearing grossly normal bilaterally, nasal mucous membranes and turbinates normal and moist oral mucous membranes Eyes PERRL, EOMs intact bilaterally and conjunctivae normal Neck full ROM Chest inspection of chest normal Resp normal respiratory effort, normal air movement, no use of accessory muscles and clear to auscultation bilaterally Cardio regular rate, regular rhythm, no murmurs and peripheral pulses 2+ throughout GI normal to inspection, nondistended, normoactive bowel sounds, soft to palpation, non-tender and non-distended Back/Spine normal ROM Extremity normal to inspection, full ROM and no pedal edema Skin no rashes or lesions noted Neuro CN's II-XII intact bilaterally, moves all extremities, no focal motor deficits and no sensory deficits noted Speech: speech normal Motor Exam: strength 5/5 throughout Psych mental status grossly normal Weight / BMI Weight Weight: 71.6 kg Body Mass Index (BMI) 29.8 ABG / Lab / Microbiology Data 09/29/24 05:53 09/29/24 05:53 Laboratory: Laboratory Results - last 24 hr 09/28/24 18:55: Troponin I High Sens 76 H 09/29/24 05:53: WBC 5.9, RBC 4.45, Hgb 11.4 L, Hct 37.3, MCV 83.8, MCH 25.6 L, MCHC 30.6 L, RDW Std Deviation 47.7 H, RDW Coeff of Katherine 15.8 H, Plt Count 151, MPV 9.3, Immature Gran % (Auto) 0.300, Neut % (Auto) 59.6, Lymph % (Auto) 25.7, [place] % (Auto) 10.0, Eos % (Auto) 3.7, Baso % (Auto) 0.7, Absolute Neuts (auto) 3.5, Absolute Lymphs (auto) 1.51, Nucleated RBC % 0, Sodium 142, Potassium 3.9, Chloride 115 H, Carbon Dioxide 21.0, Anion Gap 6, BUN 16, Creatinine 1.49 H, Estim Creat Clear Calc 31.34, Est GFR (MDRD) Af Amer 44 L, Est GFR (MDRD) Non-Af 37 L, BUN/Creatinine Ratio 10.7, Glucose 95, Calcium 8.7, Triglycerides 166, Cholesterol 115, LDL Cholesterol 49, VLDL Cholesterol 33, HDL Cholesterol 33 L, TSH 2.300 Microbiology: Microbiology 09/28/24 10:41 Mucosa - Nose SARS-CoV-2, Influenza & RSV (PCR) - Final Radiography Diagnostic Testing: Radiology Impression Echocardiogram 09/28/24 15:15 Interpretation Summary The estimated ejection fraction is 60-65% Normal LV systolic function Moderate aortic valve stenosis Aortic maximal pressure gradient is 44.2 mmHg Aortic mean pressure gradient is 28.2 mmHg. Aortic valve area calculated (1.1-1.3 cm2} Mild???--moderate aortic valve insufficiency In comparison to previous echocardiogram aortic valve is mild to moderate aortic stenosis. LV systolic function is similar Ordering Physician: Ruthie Roman Performed By: Pramod Meza RCS Head/Neck CTA 09/28/24 15:15 IMPRESSION: Normal CTA Head and neck with contrast. Electronically Signed: Jose Elias Mcdonald MD at 16:11 EST , Brain MRI 09/29/24 15:15 IMPRESSION: Small acute left superior cerebellar infarct. Mild chronic white matter changes. Electronically Signed: Sheila Barron MD at 13:22 EST , D/C Instructions Discharge Diet: No restrictions DC O2, CPAP, BIPAP Needs Additional Home O2 Discharge instructions: No DC home with Oxygen: No Meaningful Use Info Meaningful Use Meaningful Use Diagnoses (Choose all that apply): Ischemic CVA CVA Therapy Assessed for PT,OT and/or ST?: Yes Ischemic Stroke Antithrombotic order at d/c?: Yes Dx of Atrial fib/flutter?: Yes Anticoagulant at discharge?: No Reason anticoagulant not ordered: Treatment not Indicated Statin Dosing Therapy Reference: STATIN DOSE THERAPY REFERENCE: * Patients > 75 years receive moderate or high dose statin therapy. * Patients 75 years or YOUNGER should receive HIGH intensity statin dose unless contraindicated. You will be required to document reason for non-treatment if statin daily dose does not meet guidelines. HIGH DOSE STATIN THERAPY DAILY Atorvastatin > than or = to 40 mg Rosuvastatin > than or = to 20 mg Amlodipine + Atorvastatin > than or = to 2.5/40 mg Ezetimibe + Simvastatin 10/80 mg Simvastatin 80mg Statins at discharge?: Yes If patient is 75 or younger, pt will be discharged on HIGH intensity statin.: Yes Primary Dx Acute Ischemic CVA?: Yes Discharge Plan Admission Admit Date/Time: 09/28/24 15:02 Primary Reason for Your Visit: Dizziness and fatigue Attending Provider: Luis Antonio Gonzáles Primary Care Provider: Mandie Aldana Consulting Providers: Jeffrey Mukherjee; Ewa Blancas; Elodia Jacobson; Samara Llanes; Zhanna Bowen; Giuliano Roach; Yumiko Simon; Varghese Seo; Torin Krishna; Alonzo Donis; Luz Sousa; Bridger Mann; Therese Uriostegui; Lin Whittington; Reba Mendoza; Gurinder Juan; Julieta Albrecht; Noé Vora; Melita Haynes; Tanvir Marrero; Ruthie Roman Instructions Additional Instructions / Restrictions: Continue home medications as normal. If your blood pressure continues to run high at home, contact your primary care doctor or registered nurses to discuss adding additional medications for better blood pressure control. Discharge Orders/Prescriptions Prescriptions: Continued acetazolamide 250 mg tablet 250 mg PO DAILY levothyroxine 100 mcg tablet 100 mcg PO DAILY losartan 50 mg tablet 50 mg PO BID metoprolol succinate 50 mg Tablet Extended Release 24 Hr 50 mg PO DAILY Qty: 90 0RF aspirin [Adult Aspirin Regimen] 81 mg tablet,delayed release (DR/EC) 81 mg PO DAILY atorvastatin 80 mg tablet 80 mg PO QHS Qty: 90 3RF clopidogrel 75 mg tablet 75 mg PO DAILY Qty: 90 3RF Referrals / Follow Up: Mandie Aldana PA [Primary Care Provider] - Disposition Disposition (needs filled in before D/C Order can be placed): Home, Self Care Charges/Coding Visit Charges Inpatient E&M: 11307 Disch Hosp >30min
[2024-09-29 16:09] VITALS: BP 165/83; PULSE 64; RESP 18; TEMP 36.4; O2SAT 95
== END 2024-09-29 18:23 | disposition home or self-care (01) | DRG 304 ==
LOC: ED 15:51 → PCU 16:43
PROVIDERS: Admitting Provider Internal Medicine; Emergency Provider Surgery; PCP Physician Assistant; Visit Provider Hospitalist
DX: I16.1 Hypertensive emergency (principal); I63.9 Cerebral infarction, unspecified; N18.32 Chronic kidney disease, stage 3b; E03.9 Hypothyroidism, unspecified; I12.9 Hypertensive chronic kidney disease with stage 1 through stage 4 chronic kidney disease, or unspecified chronic kidney disease; I48.0 Paroxysmal atrial fibrillation; I25.10 Atherosclerotic heart disease of native coronary artery without angina pectoris; E78.2 Mixed hyperlipidemia; I25.2 Old myocardial infarction; F17.210 Nicotine dependence, cigarettes, uncomplicated; Z90.710 Acquired absence of both cervix and uterus; Z79.02 Long term (current) use of antithrombotics/antiplatelets; Z79.82 Long term (current) use of aspirin; Z79.890 Hormone replacement therapy; Z79.899 Other long term (current) drug therapy; Z90.49 Acquired absence of other specified parts of digestive tract; Z98.41 Cataract extraction status, right eye; Z98.42 Cataract extraction status, left eye; R79.89 Other specified abnormal findings of blood chemistry; Z79.01 Long term (current) use of anticoagulants; Z95.5 Presence of coronary angioplasty implant and graft
CPT/HCPCS: 36415; 70450; 70496; 70498; 70551; 71045; 80048; 80061; 80076; 81001; 82962; 83690; 83735; 84443; 84484; 85025; 85610; 85730; 87631; 92610; 93005; 93306; 94762; 97161; 97165; 97802; 99285; Q9957; Q9967; A4216; J2405

== ENCOUNTER 2025-09-30 09:24 | Observation (INO) | payer MEDICARE, SELFPAY ==
[2025-09-30] VITALS (12 sets, daily range): BP systolic 100–124; BP diastolic 60–72; PULSE 62–83; RESP 14–26; TEMP 36.2–37.2; O2SAT 91–97; BMI 25.2
--- NOTE | 2025-09-30 09:45 | RAD_ITS ---
PROCEDURE: CHEST 1 VIEW (PORTABLE) 09/30/2025 REASON FOR EXAM: COUGH COPD TECHNIQUE: Frontal view of the chest. COMPARISON: 09/28/2024 FINDINGS: Support/devices:None. Heart:Normal in size. Mediastinum: Tortuous descending aorta Lungs: New focal patchy interstitial opacity in the left base concerning for pneumonia. Calcified granuloma in the left upper lobe. Subsegmental atelectasis in the right costophrenic angle. Pleura: No pneumothorax. No pleural effusion. Osseous structures: No fracture. Multilevel degenerative disease. Soft tissues: No soft tissue abnormality. RAD/Chest 1 View (Portable) IMPRESSION: New patchy developing left lower lobe pneumonia Reading Location: [id number]
--- NOTE | 2025-09-30 09:45 | EKG12_ITS ---
Test Reason : Blood Pressure : */* mmHG Vent. Rate : 73 BPM Atrial Rate : 73 BPM P-R Int : 102 ms QRS Dur : 94 ms QT Int : 430 ms P-R-T Axes : 3 73 90 degrees QTcB Int : 473 ms Sinus rhythm with short [place] Nonspecific ST and T wave abnormality Prolonged QT Abnormal ECG Confirmed by Rinku Emery ([id number]), art editor TIM WILKINS ([id number]) on 10/02/2025 11:32:11 AM Referred By: Confirmed By: Rinku Emery
--- NOTE | 2025-09-30 09:46 | EX.ED.DYSGE1 ---
HPI History of Present Illness Chief Complaint: Weakness Informant: patient and family (Son) Narrative Narrative: 70-year-old female presenting to the emergency room chief complaint of generalized weakness. Patient states that about a week ago she was placed on Augmentin albuterol and prednisone for chest congestion. She has a history of COPD. She has been unable to smoke over the past 8 days. She denies any fever but notes that yesterday and last night she was having sweating episodes. Today around 5:30 in the morning she walked to the kitchen and states that she wilted. She states that she did not lose consciousness or hurt herself. She states that it felt like the life was draining out of her. She was unable to get up and was trying to wake her son. She states that eventually she was able to get herself up. She notes a decreased appetite. She notes frequent small amounts of urination but that is not different than normal. No vomiting or diarrhea. Reported history of CAD, aortic stenosis, A-fib. She notes a continued cough with sputum production. But notes that her lungs do not feel is full as they have. [facility] Medical History Aortic stenosis Non-ST elevated myocardial infarction (non-STEMI) Paroxysmal atrial fibrillation PAC (premature atrial contraction) Nonrheumatic aortic (valve) stenosis with insufficiency Uterine cancer Mixed hyperlipidemia Essential hypertension Hypothyroidism Thyroid nodule Premature ventricular contraction Atrial fibrillation Home Medications ?Medication ?Instructions ?Recorded ?Last Taken ?Type acetazolamide 250 mg tablet 250 mg PO DAILY for eyes 09/29/21 09/29/25 History aspirin 81 mg tablet,delayed 81 mg PO DAILY heart 11/05/21 09/29/25 History release (Adult Aspirin Regimen) losartan 50 mg tablet 50 mg PO BID blood pressure 06/27/24 09/30/25 History chlorthalidone 25 mg tablet 25 mg PO QDAY #45 tabs 11/26/24 09/30/25 Rx clopidogrel 75 mg tablet 75 mg PO DAILY anti platelet #90 04/02/25 09/30/25 Rx tabs mirtazapine 7.5 mg tablet 7.5 mg PO QDAY 06/03/25 09/29/25 History rosuvastatin 20 mg tablet 20 mg PO QDAY #90 tabs 06/03/25 09/29/25 Rx albuterol sulfate 2.5 mg/3 mL 1.25 mg continuous nebulization 09/30/25 09/29/25 History (0.083 %) solution for nebulization Q4H PRN PRN shortness of breath or wheezing amoxicillin 875 mg-potassium 1 tab PO BID 09/30/25 09/29/25 History clavulanate 125 mg tablet levothyroxine 75 mcg tablet 75 mcg PO DAILY 09/30/25 09/30/25 History metoprolol succinate 50 mg 50 mg PO DAILY 09/30/25 09/29/25 History tablet,extended release 24 hr Allergy/AdvReac Type Severity Reaction Status Date / Time bupropion (From Wellbutrin) AdvReac Severe Shakiness Verified 09/30/25 09:25 Family History Mother CHF (congestive heart failure) Kidney disease Myocardial infarction Hypertension Father No problems noted. Aunt CAD (coronary artery disease) CHF (congestive heart failure) History of coronary artery bypass surgery Uncle CAD (coronary artery disease) History of coronary artery bypass surgery Diabetes Sister CAD (coronary artery disease) Myocardial infarction Brother CAD (coronary artery disease) Myocardial infarction Diabetes Brother CAD (coronary artery disease) Myocardial infarction Grandmother Diabetes Surgical History History of partial hysterectomy History of appendectomy History of bilateral cataract extraction Social History Smoking Status: Former smoker alcohol intake: never substance use type: does not use caffeine: No ROS ROS ED ROS Narrative Generalized weakness Constitutional Constitutional ED: Reports sweats; Denies chills, fever(s) or weight loss Eyes Eyes: Denies change in vision or diplopia ENT ENT ED: Denies ear pain, rhinorrhea or sore throat Cardiovascular Cardiovascular: Denies chest pain, orthopnea, palpitations or racing heartbeat Respiratory/Chest Respiratory/Chest: Reports cough and sputum; Denies dyspnea or orthopnea Gastrointestinal Gastrointestinal: Denies abdominal pain, diarrhea, nausea or vomiting Genitourinary Genitourinary ED: Denies dysuria, hematuria or urinary frequency Musculoskeletal Musculoskeletal: Denies arthralgias or myalgias Integumentary Denies abscess or rash Neurologic Neurologic: Denies headache(s) or weakness Psychiatric Psychiatric: Denies anxiety, depression, suicidal ideation or suicidal thoughts Endocrine Endocrinology: Denies polydipsia, polyphagia or polyuria Allergic/Immunologic Allergic/Immunologic ED: Denies mouth swelling, tongue swelling or urticaria EXAM Physical Exam Const Vital Signs: 09/30/25 09:25 09/30/25 10:30 09/30/25 11:22 Temperature 97.1 F L Temperature Source Temporal Pulse Rate 76 72 65 Respiratory Rate 16 18 18 Blood Pressure 100/72 108/70 112/60 Blood Pressure Mean 81 82 77 Pulse Ox 97 95 97 Oxygen Delivery Method Room Air Room Air Room Air 09/30/25 11:54 09/30/25 12:07 Temperature 98.9 F Temperature Source Oral Pulse Rate 67 Respiratory Rate 18 Blood Pressure 113/62 123/69 H Blood Pressure Mean 79 87 Pulse Ox 97 Oxygen Delivery Method Room Air Positive well nourished and well developed General Appearance ED: well developed and NAD HEENT Reports normocephalic, head/scalp atraumatic and moist mucous membranes Eyes PERRL and EOMs intact bilaterally Neck no lymphadenopathy, supple and no JVD Resp normal respiratory effort Auscultation: rhonchi lower bilaterally and wheezes expiratory wheezes (Mild) Cardio regular rate, regular rhythm and no murmurs GI normal to inspection, nondistended, normoactive bowel sounds and non-tender Palpation: soft Back/Spine no CVA tenderness and normal ROM Extremity normal to inspection General Extremety ED: Negative for edema General Extremity: Negative for edema Neuro oriented x3 and CN's II-XII intact bilaterally Sensorium / Orientation: alert Motor Exam: strength 5/5 throughout Psych Mood & Affect: anxious and tearful; Negative for depressed Skin no rashes or lesions noted and no wounds MDM MDM MDM Narrative Medical decision making narrative: Differential diagnosis includes but not limited to pneumonia sepsis dehydration electrolyte abnormalities anemia pleural effusion EKG demonstrates a normal sinus rhythm at a rate of 73 bpm. It appears grossly unchanged from EKG dated 28 September 2024. White count 17.5. This may be due to her recent steroid use. Hemoglobin 17.3 sodium 130 potassium 2.9 anion gap 16 BUN 32 creatinine 1.53 glucose 128. Troponin 26 and 26 urinalysis with no overt infection. TSH 0.407. My independent interpretation of the chest x-ray is possible left lower lobe infiltrate. CT of the chest demonstrates no pulmonary embolism or obvious pneumonia. Patient received supplemental potassium at 500 cc fluid bolus. Also administered a dose of DuoNeb and Solu-Medrol. After treatments the patient still unable to ambulate past the doorway due to fatigue/weakness. She has not been hypoxic. No complaints of chest pain or palpitations. History & Record Review Discussion w/independent historian: Patient and Family Additional record(s) reviewed:: Prior ED visit and Prior labs Lab Data Attestation: I reviewed the patient's lab results. Labs: Laboratory Results - last 24 hr 09/30/25 09/30/25 09/30/25 10:00 12:02 12:05 WBC 17.5 H RBC 5.99 H Hgb 17.3 H Hct 50.4 H MCV 84.1 MCH 28.9 MCHC 34.3 RDW Std Deviation 47.6 H RDW Coeff of Katherine 15.7 H Plt Count 161 MPV 8.4 Immature Gran % (Auto) 0.900 Neut % (Auto) 88.7 H Lymph % (Auto) 4.1 L [place] % (Auto) 5.7 Eos % (Auto) 0.2 Baso % (Auto) 0.4 Absolute Neuts (auto) 15.6 H Absolute Lymphs (auto) 0.72 L Nucleated RBC % 0 Sodium 130 L Potassium 2.9 L Chloride 90 L Carbon Dioxide 24.5 Anion Gap 16 H BUN 32 H Creatinine 1.53 H Estim Creat Clear Calc 27.79 L Est GFR (MDRD) Non-Af 36 L BUN/Creatinine Ratio 21.0 H Glucose 128 H Calcium 9.3 Total Bilirubin 0.63 AST 14 ALT 12 Alkaline Phosphatase 56 Troponin T High Sens 26 H Troponin T Hi Sens 2 Hr 26 H Total Protein 6.7 Albumin 4.2 Globulin 2.5 Albumin/Globulin Ratio 1.7 TSH 0.407 Urine Color Yellow Urine Clarity Sl. Cloudy Urine pH 6.5 Ur Specific [place] 1.010 Urine Protein 15 H Urine Glucose (UA) Normal Urine Ketones Negative Urine Occult Blood 10 H Urine Nitrite Negative Urine Bilirubin Negative Urine Urobilinogen Normal Ur Leukocyte Esterase Negative Urine RBC 0 SEEN Urine WBC 0 SEEN Ur Squamous Epith Cells 0-5 SEEN Urine Bacteria 1+ Urine Mucus 0 SEEN Radiography Diagnostic Testing: Clinical Impression(s) from Imaging Studies Chest X-Ray 09/30/25 09:45 IMPRESSION: New patchy developing left lower lobe pneumonia Reading Location: [facility] Chest CTA 09/30/25 10:48 IMPRESSION: 1. Distal descending thoracic aortic aneurysm measuring 3.9 cm with severe noncalcified and scattered calcified plaque formation. Assessment of the aerated lumen is limited due to contrast timing. 2. No evidence of pulmonary embolism. 3. Bibasilar atelectasis. No focal consolidation. Reading Location: [facility] EKG Initial EKG: Attestation: I personally reviewed and interpreted this EKG as follows: Comments: Normal sinus rhythm ventricular rate of 73 bpm. Prior EKG tracings: available for review Prior: Unchanged Management Discussion w/another healthcare provider: Hospitalist (Dr. Null) Discharge Plan Dx/Rx/DC Orders Clinical Impression: Acute hypokalemia, Weakness, Dehydration, COPD (chronic obstructive pulmonary disease), Aortic stenosis, CKD (chronic kidney disease) Disposition Disposition: Acute Care Hospital [facility]
[2025-09-30 10:07] LABS: Hematocrit 50.4 % (37-47); Hemoglobin 17.3 g/dL (12.0-15.0); Immature Granulocytes Count 0.160 X10^3/uL (0.0-0.0); Mean Corp Hgb Conc 34.3 g/dL (32-36); Mean Corpuscular Volume 84.1 fL (81-99); Mean Platelet Vol. 8.4 fl (6.2-12.0); NRBC Flagged by Analyzer 0 % (0-5); Platelet Count 161 K/mm3 (150-450); RBC Distribution Width CV 15.7 % (11.6-14.6); RBC Distribution Width SD 47.6 fl (35.1-43.9); Red Blood Count 5.99 M/mm3 (4.2-5.4); White Blood Count 17.5 K/mm3 (4.4-11.0)
[2025-09-30 10:26] LABS: Troponin T High Sensitivity 26 ng/L (<=14)
[2025-09-30 10:47] LABS: AST(SGOT) 14 U/L (<=31); Alanine Aminotransfer ALT/SGPT 12 U/L (<=34); Albumin, Serum 4.2 g/dL (3.4-4.8); Alkaline Phosphatase 56 U/L (35-104); Anion Gap 16 (5-15); BUN 32 mg/dL (4-19); BUN/Creat Ratio 21.0 RATIO (10-20); Calcium,Total 9.3 mg/dL (7.6-11.0); Carbon Dioxide 24.5 mmol/L (21.0-32.0); Chloride 90 mmol/L (98-108); Estimated Creatinine Clearance 27.79 ml/min (50-250); Globulin 2.5 g/dL (2.2-4.2); Glucose 128 mg/dL (70-99); Potassium 2.9 mmol/L (3.3-5.1)
--- NOTE | 2025-09-30 10:48 | CT_ITS ---
PROCEDURE: CTA CHEST W/WO CONTRAST 09/30/2025 REASON FOR EXAM: DYSPNEA PE TECHNIQUE: Procedure Code: [id number] Modality: CT Procedure: CTA CHEST W/WO CONTRAST Multiplanar Sagittal and Coronal images were obtained. CONTRAST: 100 cc of Isovue 370 One or more dose reduction techniques were used (e.g., Automated exposure control, adjustment of the mA and/or kV according to patient size, use of iterative reconstruction technique). COMPARISON: Chest x-ray 09/30/2025 FINDINGS: Hardware: None. Lymph nodes: No enlarged mediastinal, hilar, or axillary lymph nodes. Heart: Not enlarged. No pericardial effusion. Thoracic Aorta: Distal descending thoracic aortic aneurysm measuring up to 3.9 cm in diameter. There is severe noncalcified and calcified plaque beginning from the midthoracic aorta and extending inferiorly. The noncalcified plaque measures up to 1.7 cm in thickness at the level of the aneurysm. Scattered calcified plaque formation. Assessment of the aortic lumen at the region of the aneurysm is limited due to contrast timing. Pulmonary Vessels: No evidence of acute pulmonary emboli through the major subsegmental branches. Lungs and Airways: Bibasilar atelectasis. No focal consolidation. Airways are patent. Pleura: No pleural effusion. No pneumothorax. Upper Abdomen: Right hepatic and splenic calcifications likely from prior infection. Visualized upper abdomen otherwise unremarkable. Bones: Degenerative changes of the thoracic spine. No acute fractures. CT/CTA Chest W/WO Contrast IMPRESSION: 1. Distal descending thoracic aortic aneurysm measuring 3.9 cm with severe nonc alcified and scattered calcified plaque formation. Assessment of the aerated lumen is limited due to contrast timing. 2. No evidence of pulmonary embolism. 3. Bibasilar atelectasis. No focal consolidation. Reading [facility]
[2025-09-30] MEDS: 0.9% Normal Saline (500mL Bag) 500 ML 999 ML IV (11:15)
[2025-09-30] MEDS: Potassium Chloride 10mEq/100mL 10 MEQ/100 ML IV.SOLN. 100 MEQ IV BOLUS (11:16)
[2025-09-30] MEDS: Potassium Chloride Oral Tablet 20 MEQ 40 MEQ PO (11:16)
[2025-09-30 12:06] LABS: Mucous, Urine 0 SEEN /hpf (<or=2+); Red Blood Cells-Urine 0 SEEN /hpf (0-5)
[2025-09-30 12:08] LABS: Color, Urine Yellow (Yellow); Glucose, Dipstick Normal (Normal); Ketone-Dipstick Negative (Negative); Leukocyte Esterase-Dipstick Negative /ul (Negative); Nitrite-Dipstick Negative (Negative); Occult Blood-Urine 10 /ul (Negative); Protein-Dipstick 15 mg/dl (Negative); Specific Gravity, Urine 1.010 (1.002-1.030); Urine Bilirubin Dipstick Negative (Negative)
[2025-09-30 12:13] LABS: Squamous Epithelial Cells - UA 0-5 SEEN /hpf (5-10)
[2025-09-30 12:35] LABS: Troponin T High Sens 2 HR 26 ng/L (<=14)
[2025-09-30] MEDS: KCL 20MEQ in 0.9% NS 20 MEQ/1,000 ML IV.SOLN. 100 MEQ IV (17:09)
--- NOTE | 2025-09-30 19:07 | PCM.HP.STD ---
HPI - General General Date of Admission: 09/30/25 Date of Service: 09/30/25 Chief Complaint: Generalized weakness HPI Narrative ADELIA ORDOÑEZ, is a 70 F who presents to the emergency room at [facility] complaining of generalized weakness. Patient is finishing up a course of Augmentin and had been on prednisone for a few days due to upper respiratory symptoms. Workup in the emergency room included a CBC which showed an elevated white blood cell count at 17.5, hemoglobin was 17.3, chemistry panel was abnormal for a sodium of 130, potassium of 2.9, chloride of 90, creatinine of 1.53, and a BUN of 32. Chest CTA was obtained which showed a distal descending thoracic aortic aneurysm measuring 3.9 cm, there was no evidence of pulmonary embolism, bibasilar atelectasis was noted, no focal consolidation was noted. Patient will be placed in observation status on MedSurg telemetry, she will be given IV fluids with potassium, labs will be repeated tomorrow, her chlorthalidone will be held at this time. I feel that this is most likely the reason for her low potassium and low sodium and chloride. [facility] Medical History Aortic stenosis Non-ST elevated myocardial infarction (non-STEMI) Paroxysmal atrial fibrillation PAC (premature atrial contraction) Nonrheumatic aortic (valve) stenosis with insufficiency Uterine cancer Mixed hyperlipidemia Essential hypertension Hypothyroidism Thyroid nodule Premature ventricular contraction Atrial fibrillation Home Medications ?Medication ?Instructions ?Recorded ?Last Taken ?Type acetazolamide 250 mg tablet 250 mg PO DAILY for eyes 09/29/21 09/29/25 History aspirin 81 mg tablet,delayed 81 mg PO DAILY heart 11/05/21 09/29/25 History release (Adult Aspirin Regimen) losartan 50 mg tablet 50 mg PO BID blood pressure 06/27/24 09/30/25 History mirtazapine 7.5 mg tablet 7.5 mg PO QDAY 06/03/25 09/29/25 History rosuvastatin 20 mg tablet 20 mg PO QDAY #90 tabs 06/03/25 09/29/25 Rx albuterol sulfate 2.5 mg/3 mL 1.25 mg continuous nebulization 09/30/25 09/29/25 History (0.083 %) solution for nebulization Q4H PRN PRN shortness of breath or wheezing levothyroxine 75 mcg tablet 75 mcg PO DAILY 09/30/25 09/30/25 History metoprolol succinate 50 mg 50 mg PO DAILY 09/30/25 09/29/25 History tablet,extended release 24 hr Allergy/AdvReac Type Severity Reaction Status Date / Time bupropion (From Wellbutrin) AdvReac Severe Shakiness Verified 09/30/25 09:25 Family History Mother CHF (congestive heart failure) Kidney disease Myocardial infarction Hypertension Father No problems noted. Aunt CAD (coronary artery disease) CHF (congestive heart failure) History of coronary artery bypass surgery Uncle CAD (coronary artery disease) History of coronary artery bypass surgery Diabetes Sister CAD (coronary artery disease) Myocardial infarction Brother CAD (coronary artery disease) Myocardial infarction Diabetes Brother CAD (coronary artery disease) Myocardial infarction Grandmother Diabetes Surgical History History of partial hysterectomy History of appendectomy History of bilateral cataract extraction Social History Smoking Status: Former smoker alcohol intake: never substance use type: does not use caffeine: No ROS ROS Narrative Patient complains of generalized weakness Constitutional Constitutional: Denies anorexia, change in weight, chills, fever(s), night sweats or weakness Eyes Eyes: Denies blurry vision, change in vision, discharge from eye(s) or eye pain Cardiovascular Cardiovascular: Denies chest pain, claudication, edema or palpitations Respiratory/Chest Respiratory/Chest: Denies cough, hemoptysis, shortness of breath at rest or shortness of breath with exertion Gastrointestinal Gastrointestinal: Denies abdominal pain, constipation, diarrhea, hematemesis, hematochezia, melena, nausea or vomiting Genitourinary Genitourinary: Denies dysuria, hematuria, urinary frequency, urinary hesitancy, urinary incontinence or urinary urgency Musculoskeletal Musculoskeletal: Denies back pain, joint pain, joint stiffness, joint swelling, myalgias or neck pain Neurologic Neurologic: Reports other Details: Generalized weakness ; Denies abnormal gait, abnormal speech, dizziness, focal weakness, headache(s), loss of vision, numbness, other visual disturbances, paresthesias, syncope or tingling Psychiatric Psychiatric: Denies anxiety, cognitive impairment, depression, irritability, mood swings or suicidal ideation Endocrine Endocrinology: Denies change in body appearance, cold intolerance, excessive sweating, heat intolerance, polydipsia or polyuria Hematologic/Lymphatic Hematologic/Lymphatic: Denies none, anemia, easy bleeding, easy bruising or lymphadenopathy Allergic/Immunologic Allergic/Immunologic: Denies rhinitis, urticaria, eczemia or asthma Vital Signs Vital Signs Vital Signs: 09/30/25 09:25 09/30/25 10:30 09/30/25 11:22 Temperature 97.1 F L Temperature Source Temporal Pulse Rate 76 72 65 Respiratory Rate 16 18 18 Respiratory Effort Respiratory Depth Respiratory Pattern Blood Pressure 100/72 108/70 112/60 Blood Pressure Mean 81 82 77 Blood Pressure Source Blood Pressure Position Blood Pressure Location Pulse Ox 97 95 97 Oxygen Delivery Method Room Air Room Air Room Air 09/30/25 11:54 09/30/25 12:07 09/30/25 13:59 Temperature 98.9 F 98.4 F Temperature Source Oral Pulse Rate 67 78 Respiratory Rate 18 18 Respiratory Effort Respiratory Depth Respiratory Pattern Blood Pressure 113/62 123/69 H 110/64 Blood Pressure Mean 79 87 79 Blood Pressure Source Blood Pressure Position Blood Pressure Location Pulse Ox 97 97 Oxygen Delivery Method Room Air 09/30/25 14:16 09/30/25 15:00 09/30/25 15:15 Temperature 97.9 F Temperature Source Temporal Pulse Rate 75 73 72 Respiratory Rate 26 H 16 Respiratory Effort Respiratory Depth Respiratory Pattern Blood Pressure 104/64 Blood Pressure Mean 77 Blood Pressure Source Monitor Blood Pressure Position Semi-Fowlers Blood Pressure Location Right Arm Pulse Ox 92 Oxygen Delivery Method Room Air 09/30/25 18:00 Temperature Temperature Source Pulse Rate 83 Respiratory Rate 18 Respiratory Effort Normal Respiratory Depth Normal Respiratory Pattern Normal Blood Pressure Blood Pressure Mean Blood Pressure Source Blood Pressure Position Blood Pressure Location Pulse Ox 92 Oxygen Delivery Method Room Air Weight Weight: 62.7 kg Body Mass Index (BMI) 25.2 Results Lab / Micro Data 09/30/25 10:00 10/01/25 05:35 Labs: Laboratory Results - last 24 hr 09/30/25 10:00: WBC 17.5 H, RBC 5.99 H, Hgb 17.3 H, Hct 50.4 H, MCV 84.1, MCH 28.9, MCHC 34.3, RDW Std Deviation 47.6 H, RDW Coeff of Katherine 15.7 H, Plt Count 161, MPV 8.4, Immature Gran % (Auto) 0.900, Neut % (Auto) 88.7 H, Lymph % (Auto) 4.1 L, [place] % (Auto) 5.7, Eos % (Auto) 0.2, Baso % (Auto) 0.4, Absolute Neuts (auto) 15.6 H, Absolute Lymphs (auto) 0.72 L, Nucleated RBC % 0, Sodium 130 L, Potassium 2.9 L, Chloride 90 L, Carbon Dioxide 24.5, Anion Gap 16 H, BUN 32 H, Creatinine 1.53 H, Estim Creat Clear Calc 27.79 L, Est GFR (MDRD) Non-Af 36 L, BUN/Creatinine Ratio 21.0 H, Glucose 128 H, Calcium 9.3, Total Bilirubin 0.63, AST 14, ALT 12, Alkaline Phosphatase 56, Troponin T High Sens 26 H, Total Protein 6.7, Albumin 4.2, Globulin 2.5, Albumin/Globulin Ratio 1.7, TSH 0.407 09/30/25 12:02: Urine Color Yellow, Urine Clarity Sl. Cloudy, Urine pH 6.5, Ur Specific Hob[place] 1.010, Urine Protein 15 H, Urine Glucose (UA) Normal, Urine Ketones Negative, Urine Occult Blood 10 H, Urine Nitrite Negative, Urine Bilirubin Negative, Urine Urobilinogen Normal, Ur Leukocyte Esterase Negative, Urine RBC 0 SEEN, Urine WBC 0 SEEN, Ur Squamous Epith Cells 0-5 SEEN, Urine Bacteria 1+, Urine Mucus 0 SEEN 09/30/25 12:05: Troponin T Hi Sens 2 Hr 26 H Imaging Radiology Impression Chest X-Ray 09/30/25 09:45 IMPRESSION: New patchy developing left lower lobe pneumonia Reading Location: [facility] Chest CTA 09/30/25 10:48 IMPRESSION: 1. Distal descending thoracic aortic aneurysm measuring 3.9 cm with severe noncalcified and scattered calcified plaque formation. Assessment of the aerated lumen is limited due to contrast timing. 2. No evidence of pulmonary embolism. 3. Bibasilar atelectasis. No focal consolidation. Reading Location: [facility] Assessment & Plan Assessment/Plan (1) Weakness: PLAN: Plan 1. Hypokalemia-secondary to chlorthalidone usage-patient will be placed in observation status on PCU, potassium replacement will be given, her chlorthalidone will be held #2 generalized weakness secondary to hypokalemia and mild dehydration from diuretics-again her chlorthalidone will be held, patient will be given IV fluids #3 leukocytosis secondary to recent prednisone usage #4 chronic obstructive pulmonary disease #5 coronary artery disease-stable at this time #6 hypothyroidism-patient is on Synthroid #7 hyperlipidemia-patient is on Crestor Total clinical time spent by myself addressing the patient's medical issues, reviewing all of her data, and collaborating with patient's care team: 55-minute Charges/Coding Visit Charges Inpatient E&M: 03267 Init Hosp L2
[2025-10-01 03:41] VITALS: BP 116/77; PULSE 65; RESP 12; TEMP 36.5; O2SAT 91
[2025-10-01] MEDS: KCL 20MEQ in 0.9% NS 20 MEQ/1,000 ML IV.SOLN. 100 MEQ IV ×2 (03:47→13:06)
[2025-10-01 06:31] LABS: Anion Gap 13 (5-15); BUN 25 mg/dL (4-19); BUN/Creat Ratio 21.1 RATIO (10-20); Calcium,Total 8.6 mg/dL (7.6-11.0); Carbon Dioxide 19.8 mmol/L (21.0-32.0); Chloride 98 mmol/L (98-108); Estimated Creatinine Clearance 37.51 ml/min (50-250); Glucose 167 mg/dL (70-99); Potassium 3.5 mmol/L (3.3-5.1)
[2025-10-01 07:28] VITALS: PULSE 59; RESP 16; O2SAT 90
[2025-10-01] MEDS: Aspirin E.C. 81 MG Tablet PO (09:07)
[2025-10-01 09:08] VITALS: PULSE 68
[2025-10-01] MEDS: Metoprolol(XL)Succ 50 MG Tablet PO (09:08)
[2025-10-01 09:15] VITALS: BP 133/75; PULSE 68; RESP 17; TEMP 36.2; O2SAT 95
--- NOTE | 2025-10-01 10:00 | CASEMGMT ---
RN CM Face to Face with patient for initial transition planning/care coordination assessment. RN CM introduced self and role at [facility]. Patient lying in bed, alert and oriented, daughter at bedside. Patient willing to participate in assessment and is able to answer all questions appropriately. Care providers, pharmacy, and demographics verified. Strata: 2 PCP: Jovan DORSEY Specialists: Jorge claim service representative; Preferred Pharmacy: [facility] Insurance: [employer] Prescription Benefit: yes Living Will/HPOA: yes, sister Mandie Leal LNOK: , daughter, sister Living Arrangements: Patient lives with in a single story home with 2 steps to enter. Patient states she is independent at home. Transportation: self, DME/HHC: Patient has nebulizer and pulse ox at home. No previous HHC or SNF. Patient wishes to discharge home, denies need for home health at this time. Patient states she has no further needs or concerns at this time. CM to follow for discharge planning needs that may arise. Disposition Plan: Patient to discharge home with family support and follow-up plans in place. Arpita MARTINEZ, RN, CM
--- NOTE | 2025-10-01 12:16 | WOUNDNOTE ---
wound photo: left medial foot
--- NOTE | 2025-10-01 13:21 | DCINST_ITS ---
Discharge Instructions DC O2, CPAP, BIPAP needs Home O2 Discharge instructions: No Dressing / Incision Discharge Activity: Return to Normal Activity Weight Bearing Status: Full weight bearing Follow Up Care Test Results: Test results from this visit will be discussed in further detail at your follow- up appointment, if applicable. Discharge Plan Admission Admit Date/Time: 09/30/25 14:19 Primary Reason for Your Visit: Low potassium and sodium, dehydration Attending Provider: Brigido Null Primary Care Provider: Mandie Aldana Instructions Additional Instructions / Restrictions: Stop chlorthalidone and clopidogrel, call your cardiology office to arrange for an echocardiogram this month to recheck your aortic valve Discharge Orders/Prescriptions Prescriptions: Continued acetazolamide 250 mg tablet 250 mg PO DAILY losartan 50 mg tablet 50 mg PO BID mirtazapine 7.5 mg tablet 7.5 mg PO QDAY rosuvastatin 20 mg tablet 20 mg PO QDAY Qty: 90 3RF albuterol sulfate 2.5 mg /3 mL (0.083 %) solution for nebulization 1.25 mg continuous nebulization Q4H PRN PRN (Reason: shortness of breath or wheezing) metoprolol succinate 50 mg tablet extended release 24 hr 50 mg PO DAILY levothyroxine 75 mcg tablet 75 mcg PO DAILY aspirin [Adult Aspirin Regimen] 81 mg tablet,delayed release (DR/EC) 81 mg PO DAILY Discontinued chlorthalidone 25 mg tablet 25 mg PO QDAY Qty: 45 3RF Rx Instructions: take 1/2 tab once a day amoxicillin-pot clavulanate 875-125 mg tablet 1 tab PO BID Patient Comments: last day 10/01/25 clopidogrel 75 mg tablet 75 mg PO DAILY Qty: 90 3RF Referrals / Follow Up: Mandie Aldana PA [Primary Care Provider, Medical] - See Referral Note Referral Note: in two weeks Disposition Disposition (needs filled in before D/C Order can be placed): Home, Self Care
--- NOTE | 2025-10-01 13:31 | DS.PCM_ITS ---
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 Hypokalemia-secondary to chlorthalidone usage-patient will be placed in observation status on PCU, potassium replacement will be given, her chlorthalidone will be held #2 generalized weakness secondary to hypokalemia and mild dehydration from diuretics-again her chlorthalidone will be held, patient will be given IV fluids #3 leukocytosis secondary to recent prednisone usage #4 chronic obstructive pulmonary disease #5 coronary artery disease-stable at this time #6 hypothyroidism-patient is on Synthroid #7 hyperlipidemia-patient is on Crestor #8 dehydration Medications at Discharge Home Medications acetazolamide 250 mg tablet 250 mg PO DAILY for eyes 09/29/21 aspirin 81 mg tablet,delayed release (Adult Aspirin Regimen) 81 mg PO DAILY heart 11/05/21 losartan 50 mg tablet 50 mg PO BID blood pressure 06/27/24 mirtazapine 7.5 mg tablet 7.5 mg PO QDAY 06/03/25 rosuvastatin 20 mg tablet 20 mg PO QDAY #90 tabs 06/03/25 albuterol sulfate 2.5 mg/3 mL (0.083 %) solution for nebulization 1.25 mg continuous nebulization Q4H PRN PRN shortness of breath or wheezing 09/30/25 levothyroxine 75 mcg tablet 75 mcg PO DAILY 09/30/25 metoprolol succinate 50 mg tablet,extended release 24 hr 50 mg PO DAILY 09/30/25 Hospital Course Operations None Procedures None Summary of Care Provided Minutes Spent on Discharge: 31 Hospital Course: 70-year-old white female was seen in the emergency room at [facility] complaining of generalized weakness. Patient had been on an antibiotic course and prednisone for few days due to an upper respiratory tract infection. Workup in the emergency room included a CBC which showed elevated white blood cell count at 17.5, chemistry panel was abnormal for sodium of 130, potassium of 2.9, creatinine of 1.53 and BUN of 32. Chest x-ray was obtained which showed a distal descending thoracic aortic aneurysm of 3.9, patient was placed in observation status on MedSurg and given IV fluids and potassium replacement, labs were repeated the next day which showed correction of her potassium although her sodium was still slightly low. Patient's creatinine was improved.. Patient's chlorthalidone was held. On 10/01/2025, patient was seen and examined: On examination she appeared in good health and spirits, she does not appear to be in any distress. Vital signs as documented. Skin warm and dry and without overt rashes. Neck without JVD, thyroid appears normal, trachea is midline, neck is supple. Lungs clear, normal air movement was noted. Heart exam notable for regular rhythm, normal sounds and absence of murmurs, rubs or gallops. Abdomen unremarkable and without evidence of organomegaly, masses, or abdominal aortic enlargement, bowel sounds are present in all 4 quadrants, no abdominal tenderness was noted. Extremities nonedematous, no cyanosis was noted, no clubbing was noted. Neuro: Cranial nerves II through XII are grossly intact, no focal motor deficits were noted, sensation to light touch and pinprick is intact, motor exam 5/5 throughout. Psych: Patient is alert and oriented x3, she does not appear anxious or depressed, she does not appear agitated. Patient was discharged in stable condition on 10/01/2025 Weight / BMI Weight Weight: 62.7 kg Body Mass Index (BMI) 25.2 ABG / Lab / Microbiology Data 09/30/25 10:00 10/01/25 05:35 Laboratory: Laboratory Results - last 24 hr 10/01/25 05:35: Sodium 131 L, Potassium 3.5, Chloride 98, Carbon Dioxide 19.8 L, Anion Gap 13, BUN 25 H, Creatinine 1.18, Estim Creat Clear Calc 37.51 L, Est GFR (MDRD) Non-Af 49 L, BUN/Creatinine Ratio 21.1 H, Glucose 167 H, Calcium 8.6 D/C Instructions Weight Bearing Status: Full weight bearing DC O2, CPAP, BIPAP Needs Home O2 Discharge instructions: No Meaningful Use Info Meaningful Use Meaningful Use Diagnoses (Choose all that apply): None applicable Discharge Plan Admission Admit Date/Time: 09/30/25 14:19 Primary Reason for Your Visit: Low potassium and sodium, dehydration Attending Provider: Brigido Null Primary Care Provider: Mandie Aldana Instructions Additional Instructions / Restrictions: Stop chlorthalidone and clopidogrel, call your cardiology office to arrange for an echocardiogram this month to recheck your aortic valve Discharge Orders/Prescriptions Prescriptions: Continued acetazolamide 250 mg tablet 250 mg PO DAILY losartan 50 mg tablet 50 mg PO BID mirtazapine 7.5 mg tablet 7.5 mg PO QDAY rosuvastatin 20 mg tablet 20 mg PO QDAY Qty: 90 3RF albuterol sulfate 2.5 mg /3 mL (0.083 %) solution for nebulization 1.25 mg continuous nebulization Q4H PRN PRN (Reason: shortness of breath or wheezing) metoprolol succinate 50 mg tablet extended release 24 hr 50 mg PO DAILY levothyroxine 75 mcg tablet 75 mcg PO DAILY aspirin [Adult Aspirin Regimen] 81 mg tablet,delayed release (DR/EC) 81 mg PO DAILY Discontinued chlorthalidone 25 mg tablet 25 mg PO QDAY Qty: 45 3RF Rx Instructions: take 1/2 tab once a day amoxicillin-pot clavulanate 875-125 mg tablet 1 tab PO BID Patient Comments: last day 10/01/25 clopidogrel 75 mg tablet 75 mg PO DAILY Qty: 90 3RF Referrals / Follow Up: Mandie Aldana PA [Primary Care Provider, Medical] - See Referral Note Referral Note: in two weeks Disposition Disposition (needs filled in before D/C Order can be placed): Home, Self Care Charges/Coding Visit Charges Inpatient E&M: 45697 Disch Hosp >30min
[2025-10-01 13:58] VITALS: BP 137/85; PULSE 64; RESP 18; TEMP 36.7; O2SAT 94
== END 2025-10-01 14:44 | disposition home or self-care (01) ==
LOC: ED 13:55 → PCU 14:03
PROVIDERS: Admitting Provider Internal Medicine; Emergency Provider Emergency Medicine; PCP Physician Assistant; Visit Provider Internal Medicine
DX: E87.6 Hypokalemia (principal); L97.529 Non-pressure chronic ulcer of other part of left foot with unspecified severity; J44.9 Chronic obstructive pulmonary disease, unspecified; I48.0 Paroxysmal atrial fibrillation; J98.11 Atelectasis; E78.2 Mixed hyperlipidemia; I12.9 Hypertensive chronic kidney disease with stage 1 through stage 4 chronic kidney disease, or unspecified chronic kidney disease; E86.0 Dehydration; N18.9 Chronic kidney disease, unspecified; Z87.891 Personal history of nicotine dependence; Z79.02 Long term (current) use of antithrombotics/antiplatelets; I71.23 Aneurysm of the descending thoracic aorta, without rupture; E78.5 Hyperlipidemia, unspecified; D72.829 Elevated white blood cell count, unspecified; Z79.890 Hormone replacement therapy; E03.9 Hypothyroidism, unspecified; Z79.899 Other long term (current) drug therapy; Z79.82 Long term (current) use of aspirin; T50.2X5A Adverse effect of carbonic-anhydrase inhibitors, benzothiadiazides and other diuretics, initial encounter; T38.0X5A Adverse effect of glucocorticoids and synthetic analogues, initial encounter
CPT/HCPCS: 36415; 71045; 71275; 80048; 80053; 81001; 84443; 84484; 85025; 93005; 94640; 94668; 96361; 96365; 96375; 99221; 99285; Q9967; A4216; G0378